=== PATIENT | male | born 1940 | race Caucasian/White ===

== ENCOUNTER → 2017-08-10 10:34 | Outpatient (CLI) | payer MEDICARE, OTHER, SELFPAY ==
--- NOTE | 2017-08-10 | DI.ECHO.S_ITS ---
[facility]---------+ [facility] +---------+ : : [address] : : : [place], [place] : : : : [id number] : : : : Phone: [phone]+ Echocardiogram Report + + :Name: SYDNIE GÓMEZ Study Date: 08/10/2017 Height: 70 in : :[facility] Exam Location: [place] Weight: 224 lb : : Gender: Male BSA: 2.2 m2 : :: 1940 Age: 77 yrs BP: 138/80 mmHg: :Reason For Study: Shortness of Breath : :Ordering Physician: Martha : :Sahil Performed By: Agatha Sánchez : :Referring: MARTHA MCINTYRE : + + Interpretation Summary Left ventricular systolic function is normal without focal wall motion abnormalities with the ejection fraction visually estimated to be 55-60% and appears unchanged compared to the previous study. The left ventricle is normal in size with mild concentric left ventricular hypertrophy, and measures slightly smaller in size compared to the previous study. Assessment of diastolic parameters indicates a relaxation abnormality of the left ventricle, consistent with normal filling pressures, possibly lower compared to the previous study. The right ventricle is at the upper limits of normal in size and systolic function is at the lower limits of normal but this appears unchanged compared to the previous study. The right ventricular systolic pressure is estimated at 32 mmHg assuming a right atrial pressure of 3 mm Hg and is likely slightly lower compared to the previous study. Both atria are normal in size. The left atrium has mildly decreased in size since the prior echo exam. There is mild to moderate mitral regurgitation that is less prominent compared to the previous study. There is no other significant valvular heart disease. The ascending aorta is mild-moderately enlarged and measures slightly larger compared to the previous study. The aortic arch is mildly enlarged and is unchanged compared to the previous study. Procedure: A two-dimensional transthoracic echocardiogram with color flow and Doppler was performed. The study quality was technically adequate. Comparison is made with the echocardiogram of 05/24/2012. The patient was in normal sinus rhythm during the exam. Left Ventricle: The left ventricle is normal in size. There is mild concentric left ventricular hypertrophy. This is measures slightly smaller compared to the previous study. Left ventricular systolic function is normal without focal wall motion abnormalities. The ejection fraction is estimated to be 55-60%. This is unchanged compared to the previous study. Assessment of diastolic parameters indicates a relaxation abnormality of the left ventricle, consistent with normal filling pressures. This is possibly lower compared to the previous study. Right Ventricle: The right ventricle is at the upper limits of normal in size. Right ventricular systolic function is at the lower limits of normal. This is unchanged compared to the previous study. Atria: Both atria are normal in size. The left atrium has mildly decreased in size since the prior echo exam. The interatrial septum is intact with no evidence for an atrial septal defect. Mitral Valve: The mitral valve leaflets appear mildly thickened, but open well. There is mild to moderate mitral regurgitation. This is less prominent compared to the previous study. Aortic Valve: The aortic valve is trileaflet. The aortic valve is slightly calcified. The aortic valve opens well. There is no aortic valve stenosis. No aortic regurgitation is present. Tricuspid Valve: The tricuspid valve is normal in structure and function. There is trace tricuspid regurgitation. The right ventricular systolic pressure is estimated at 32 mmHg assuming a right atrial pressure of 3 mm Hg. This is likely slightly lower compared to the previous study. Pulmonic Valve: The pulmonic valve is not well seen, but is grossly normal. There is trace pulmonic regurgitation. There is no other significant valvular heart disease. Great Vessels: The ascending aorta is mild-moderately enlarged. This is slightly larger compared to the previous study. The aortic arch is mildly enlarged. This is unchanged compared to the previous study. The IVC is of normal diameter and collapses greater than 50% with a sniff. This suggests a low right atrial pressure of 3 mm Hg. Pericardium/ Pleura There is no pericardial effusion. There is no pleural effusion. MMode/2D Measurements & Calculations LVIDd: 5.2 cm LVOT diam: 2.3 cm LVIDs: 3.6 cm asc Aorta Diam: 3.8 cm FS: 30.3 % Ao Arch Diam (Prox Trans): 3.2 cm IVSd: 1.3 cm LVPWd: 1.3 cm LV chamorro. diameter/BSA (cm/m^2): 2.4 LV sys. diameter/BSA (cm/m^2): 1.7 LA A2 area: 23.6 cm2 RA long axis: 4.5 cm LA A4 area: 19.6 cm2 RA area: 15.9 cm2 LA length (vol): 6.0 cm RA vol: 47.7 ml LA vol: 65.4 ml RA : 21.8 ml/m2 LA vol index: 29.9 ml/m2 TAPSE: 2.8 cm Doppler Measurements & Calculations Ao V2 max: 111.4 cm/sec LVOT Max Paxton: 82.0 cm/sec Ao V2 mean: 83.0 cm/sec LV V1 max P.7 mmHg Ao max P.0 mmHg LV V1 VTI: 16.7 cm Ao mean P.0 mmHg BARBI(I,D): 2.7 cm2 Ao V2 VTI: 27.0 cm BARBI(V,D): 3.2 cm2 sev ratio: 0.62 BARBI indexed to BSA (cm^2/m^2): 1.2 MV E max paxton: 53.2 cm/sec TR max paxton: 270.2 cm/sec MV A max paxton: 72.3 cm/sec TR max P.2 mmHg MV E/A: 0.74 PA V2 max: 88.9 cm/sec MV dec time: 0.27 sec PA V2 mean: 54.8 cm/sec PA mean P.4 mmHg PA pr(Accel): 47.4 mmHg Reading Physician:PM
== END ==
PROVIDERS: PCP Internal Medicine; Visit Provider Specialist
DX: R06.02 Shortness of breath (principal); I34.0 Nonrheumatic mitral (valve) insufficiency
CPT/HCPCS: 93306

== ENCOUNTER → 2019-01-16 08:16 | Outpatient (CLI) | payer MEDICARE, OTHER, SELFPAY ==
--- NOTE | 2019-01-16 | DI.US.S_ITS ---
PROCEDURE: US SCROTUM INDICATIONS: BILATERAL SCROTAL LUMPS TECHNIQUE: Real-time scanning was performed of the scrotum and testicles, with image documentation. Color and pulse Doppler interrogation was performed of both testicles. COMPARISON: None. FINDINGS: Right: Testicle is normal in size at 4.5 x 2.3 x 4.1 cm, and homogenous in echotexture. Solid heterogeneous mass involving the epididymal tail measuring 1.8 x 1.4 x 1.8 cm. Mild hyperemia. No hydrocele or varicoceles. Overlying scrotal skin is normal in thickness. Left: Testicle is normal in size at 4.7 x 2.2 x 4.0 cm, and homogeneous in echotexture. Solid heterogeneous mass involving the epididymal tail measuring 2.0 x 1.7 x 2.6 cm. Mild hyperemia. No hydrocele or varicoceles. Overlying scrotal skin is normal in thickness. Doppler: Color and pulse Doppler demonstrate normal and symmetric arterial flow in both testicles. IMPRESSION: 1. Normal testicles bilaterally. 2. Solid, heterogeneous epididymal masses present bilaterally of unclear etiology. Urologic consultation is recommended as although findings may be related to focal epididymitis, underlying neoplastic process cannot be excluded. Continued sonographic surveillance is also recommended. Dictated by: Chaitanya Irvin [facility] Interpreted: Michael Leon MD on 01/16/2019 at 10:40 Approved by: Michael Leon M.D. on 01/16/2019 at 15:01
== END ==
PROVIDERS: PCP Internal Medicine; Visit Provider Internal Medicine
DX: N50.89 Other specified disorders of the male genital organs (principal)
CPT/HCPCS: 76870

== ENCOUNTER → 2019-03-20 09:10 | Outpatient (CLI) | payer MEDICARE, OTHER, SELFPAY ==
--- NOTE | 2019-03-20 | DI.US.S_ITS ---
PROCEDURE: US SCROTUM INDICATIONS: MASS TECHNIQUE: Real-time scanning was performed of the scrotum and testicles, with image documentation. Color and pulse Doppler interrogation was performed of both testicles. COMPARISON: [facility], US, US SCROTUM, 01/16/2019, 8:36. FINDINGS: Right: Testicle is normal in size at 4.0 x 3.1 x 2 cm, and homogenous in echotexture. Epididymis is normal in overall size. There is a 0.9 x 1 x 0.7 cm hypoechoic solid appearing nodule in the right epididymal tail, previously measures 1.8 x 1.4 x 1.8 cm in size. No internal vascularity is noted on the current study. Small right hydrocele is seen. No varicoceles. Overlying scrotal skin is normal in thickness. Left: Testicle is normal in size at 4.6 x 2.8 x 1.9 cm, and homogeneous in echotexture. Epididymis is normal in overall size. Previously described 2 x 1.7 x 2.6 cm heterogeneous mass involving the left epididymal tail now measures 0.6 x 0.6 x 0.5 cm in size. No internal vascularity is noted. No hydrocele or varicoceles. Overlying scrotal skin is normal in thickness. Doppler: Color and pulse Doppler demonstrate normal and symmetric arterial flow in both testicles. IMPRESSION: 1. Interval decrease in size of previously noted solid, heterogeneously hypoechoic bilateral epididymal masses, and may represent benign process. Continued sonographic followup is recommended. 2. Normal appearing bilateral testicles. Dictated by: Michael Leon M.D. on 03/20/2019 at 10:39 Approved by: Michael Leon M.D. on 03/20/2019 at 10:48
== END ==
PROVIDERS: PCP Internal Medicine; Visit Provider Urology
DX: N50.9 Disorder of male genital organs, unspecified (principal); N43.3 Hydrocele, unspecified
CPT/HCPCS: 76870

== ENCOUNTER → 2019-05-09 08:52 | Outpatient (CLI) | payer MEDICARE, OTHER, SELFPAY ==
[2019-05-09 09:50] LABS: Alanine Aminotransferase 17 IU/L (<50); Albumin 4.2 g/dL (3.5-5.0); Albumin Globulin Ratio 1.2 (1.0-2.8); Alkaline Phosphatase 53 U/L (38-126); Aspartate Aminotransferase 28 IU/L (17-59); BUN Creatinine Ratio 18.8 (6-22); Bilirubin Total 0.3 mg/dL (0.2-1.3); Blood Urea Nitrogen 30 mg/dL (9-20); Calcium 8.8 mg/dL (8.4-10.2); Carbon Dioxide 28 mmol/L (22-32); Chloride 106 mmol/L (98-107); Estimated Glomerular Filt Rate 41.9 mL/min (>60); Globulin 3.6 g/dL (1.7-4.1); Glucose 100 mg/dL (80-110); HEMOLYSIS < 15 (0-50); Magnesium 2.4 mg/dL (1.6-2.3); Potassium 4.3 mmol/L (3.4-5.1); Sodium 141 mmol/L (137-145); Total Protein 7.8 g/dL (6.3-8.2)
[2019-05-11 08:20] LABS: Lipoprofile NMR SEE SEPERATE REPORT
== END ==
PROVIDERS: PCP Internal Medicine; Referring Provider Specialist; Visit Provider Specialist
DX: E78.2 Mixed hyperlipidemia (principal); I10 Essential (primary) hypertension
CPT/HCPCS: 36415; 80053; 83704; 83735

== ENCOUNTER → 2019-05-29 15:57 | Outpatient (CLI) | payer MEDICARE, OTHER, SELFPAY ==
--- NOTE | 2019-05-29 | DI.RAD.S_ITS ---
PROCEDURE: XR CERVICAL SPINE 2V OR 3V INDICATIONS: M54.2 TECHNIQUE: 3 view(s) of the cervical spine were acquired. COMPARISON: None. FINDINGS: Bones: Small chronic appearing avulsion fracture of the tip of the C7 spinous process. No acute fractures or dislocations to the T1 level. The lateral masses of C1 appear intact on the odontoid view. No suspicious bony lesions. Moderate C3-C4, C4-C5, C5-C6 and C6-C7 degenerative changes. Moderate bilateral C3-C4, C4-C5, C5-C6 and C6-C7 uncovertebral joint hypertrophy. Mild C5-C6 and C6-C7 facet arthropathy. Soft tissues: No prevertebral soft tissue swelling. IMPRESSION: 1. Multilevel degenerative disc disease. 2. Multilevel facet and uncovertebral arthropathy. Dictated by: Karena Gill MD, PhD on 05/29/2019 at 16:52 Approved by: Karena Gill MD, PhD on 05/29/2019 at 16:54
== END ==
PROVIDERS: PCP Internal Medicine; Referring Provider Internal Medicine; Visit Provider Internal Medicine
DX: M50.31 Other cervical disc degeneration, high cervical region (principal); M47.812 Spondylosis without myelopathy or radiculopathy, cervical region
CPT/HCPCS: 72040

== ENCOUNTER 2019-06-02 09:45 | Emergency (ER) | payer MEDICARE, OTHER, SELFPAY ==
[2019-06-02] VITALS (17 sets, daily range): BP systolic 113–190; BP diastolic 56–88; PULSE 44–89; RESP 14–22; TEMP 36.2; O2SAT 95–100
--- NOTE | 2019-06-02 09:51 | DI.RAD.S_ITS ---
PROCEDURE: XR CHEST 1V INDICATIONS: chest pain TECHNIQUE: One view of the chest was acquired. COMPARISON: [facility], CT, ABDOMEN/PELVIS WITH CONTRAST, 03/06/2011, 14:15. FINDINGS: Surgical changes and devices: None. Lungs and pleura: Lungs appear clear. No pleural effusions or pneumothorax. Mediastinum: Mediastinal contours appear normal. Heart size is normal. Bones and chest wall: No suspicious bony lesions. Overlying soft tissues appear unremarkable. IMPRESSION: No acute cardiopulmonary abnormality. Dictated by: Kwame Barreto M.D. on 06/02/2019 at 10:18 Approved by: Kwame Barreto M.D. on 06/02/2019 at 10:19
[2019-06-02] MEDS: ASPIRIN 81 MG CHEW TAB 324 MG PO (09:56)
--- NOTE | 2019-06-02 09:58 | ED_ITS ---
HPI - Chest Pain General Chief Complaint: Chest Pain Stated Complaint: chest pain Time Seen by Provider: 06/02/19 09:58 History of Present Illness HPI narrative: HPI: The patient is a 79-year-old male who states that he had chest pain and a myocardial infarction in 2011 which resulted in stenting. In 2012 the patient redevelop chest pain and had the stent replaced. This morning the patient developed chest discomfort across his upper chest from nipple to nipple that was a dull achy pressure. This discomfort is different from when he had his previous myocardial infarction. This is not as intense. The discomfort is 5 to 7/10 in intensity. He denies any radiation to his neck jaw shoulder arms or back. It is located just anteriorly. Nothing seems to make it worse or better. He thought lying down and resting would improve it but did not. He denies any shortness of breath but was mildly clammy and minimally sweaty. He denies any recent fall or injury. The discomfort did not wake him he developed the discomfort after he woke up in was moving about. He denies a history of asthma COPD stroke and diabetes mellitus pancreatitis indigestion or heartburn. He admits to history of myocardial infarction as previously noted and hypertension. He denies a history of hepatitis TB and HIV. He has never smoked cigarettes occasionally drinks alcohol and does not use any drugs including marijuana. As noted he denies any fever chills or sweats. He has not traveled outside the [place] and has not been exposed to anyone that he knows of that has young virus. His states that he is pale and white in that this is his normal color. He has had no headache nasal drainage sore throat or sinus congestion no significant shortness of breath cough palpitations or dizziness. He has had no abdominal pain nausea vomiting diarrhea or any urinary symptoms. Related Data Home Medications Medication Instructions Recorded Confirmed carvedilol 25 mg PO BID 06/02/19 06/02/19 hydrochlorothiazide 25 mg PO DAILY 06/02/19 06/02/19 lisinopril 20 mg PO BID 06/02/19 06/02/19 pravastatin 20 mg PO DAILY 06/02/19 06/02/19 rosuvastatin 40 mg PO DAILY 06/02/19 06/02/19 Allergies Allergy/AdvReac Type Severity Reaction Status Date / Time No Known Drug Allergies Allergy Verified 06/02/19 10:09 Review of Systems Review of Systems Narrative: His review of systems were all negative except for those mentioned in the history of present illness. Patient History Social History Smoking Status: Never smoker Exam Narrative Exam Narrative: PHYSICAL EXAM: CONSTITUTIONAL: Awake, Alert, Oriented, Coherent, Cooperative Quiet in NAD. Does not appear toxic or ill. Appears pale and pasty. No diaphoresis HEAD: AT/NC EENT: PERRL, FROM of eyes, no discharge, No epistaxis or nasal drainage Oral mucosa is moist and pink, posterior pharynx is without erythema or exudate. NECK: Supple, no obvious JVD, Trachea is midline without stridor, no palpable LN . SPINE: No gross deformity, no palpable tenderness of the cervical, thoracic, lumbar or sacral spine. No CVA tenderness. THORAX: No deformity, retractions. No chest wall tenderness to AP compression. LUNGS: Clear with symmetrical breath sounds without respiratory distress HEART: Normal heart tones, regular rhythm and rate without murmur. ABDOMEN: Soft, non-tender, without guarding, rebound, rigidity or palpable mass . LYMPHATIC: no palpable lymph nodes EXTREMITIES: No edema, cyanosis, deformity or tenderness. SKIN: No rash, bruising, petechiae or purpura. NEURO: Awake, alert, oriented, conversive, cranial nerves II-XII are symmetrical and normal, moves all 4 extremities. Initial Vital Signs Initial Vital Signs: Vital Signs Temperature 97.1 F L 06/02/19 09:45 Pulse Rate 44 L 06/02/19 09:45 Respiratory Rate 18 06/02/19 09:45 Blood Pressure 190/88 H 06/02/19 09:45 Pulse Oximetry 99 06/02/19 09:45 Course Course Course Narrative: 1025: The nurse states that the patient's pain completely resolved with nitro glycerin sublingually. The patient will be placed on nitro paste and started on heparin 5000 units IV push as a bolus and an infusion of a 1000 milligrams/hour. His title curator is Dr. Baxter at a [facility]. As soon as his laboratory chemistries are resulted I will discuss the patient with his title curator. I surmise that the patient will be transferred to [facility]. 10:31 the patient's troponin is 0.027, CPK 122, BUN 33 creatinine 1.65 the GFR 46.4 BNP pending. 13:29 the patient's lipase is 101 his pro BNP is 690 and his repeat 2 hour troponin is 0.034. I will call and discuss the patient with Dr. Baxter his cardiology at [facility]. 13:39: I discussed the patient with his title curator Dr. Baxter at the [facility] who states that this is a pretty good story for angina. He feels that the patient should be admitted and his troponins trended. If his troponins rise significantly he should be transferred to [facility] of for possible repeat catheterization. At this time he does not feel that the patient needs an immediate cardiac catheterization and that his blood pressure should be controlled which may be contributing and causing his chest pain. The [facility] hospitalist has been called to discuss possible admi ssion. 1400: I discussed admitting the patient here with Dr. Andrews. She feels uncomfortable and that the patient is potentially high risk. She wants me to check another 2 hour troponin and if it is continuing to go up he needs to be transferred to [facility]. She will call and discussed the patient with Dr. Baxter. In the meantime, I have called [facility] and they have beds available. 1440:I discussed the patient with the hospitalist Dr. Abel at [facility] who accepted the patient being transferred and admitted there. The patient will be transferred by ambulance. Orders Ordered: Discontinued Medications Acetaminophen (Tylenol) 650 mg PO Q4HR PRN PRN Reason: Pain, Mild (1-3) Aspirin (Aspirin Chew) 324 mg PO NOW ONE Stop: 06/02/19 09:54 Last Admin: 06/02/19 09:56 Dose: 324 mg Documented by: IRWIN Heparin Sodium (Porcine) (Heparin) 5,000 unit IV NOW ONE Stop: 06/02/19 10:26 Last Admin: 06/02/19 10:56 Dose: 5,000 unit Documented by: TEREZA Heparin Sodium/Dextrose (Heparin Drip) 25,000 unit in 500 mls @ 20 mls/hr IV CONT GUSTABO; Protocol Last Titration: 06/02/19 15:44 Dose: 1,000 units/hr, 20 mls/hr Documented by: Admin: 06/02/19 10:57 Dose: 1,000 units/hr, 20 mls/hr Documented by: TEREZA Morphine Sulfate (Morphine) 4 mg IV NOW ONE Stop: 06/02/19 10:00 Last Admin: 06/02/19 10:56 Dose: Not Given Documented by: TEREZA Nitroglycerin (Nitrostat) 0.4 mg SL [id number] PRN PRN Reason: Chest Pain Last Admin: 06/02/19 10:56 Dose: 0.4 mg Documented by: Admin: 06/02/19 10:15 Dose: 0.4 mg Documented by: Admin: 06/02/19 10:03 Dose: 0.4 mg Documented by: IRWIN Nitroglycerin (Nitro-Bid) 1 inch TOP NOW ONE Stop: 06/02/19 10:26 Last Admin: 06/02/19 11:39 Dose: 1 inch Documented by: TEREZA Ondansetron HCl (Zofran) 4 mg IV Q6HR PRN PRN Reason: nausea / vomiting Vital Signs Vital signs: Vital Signs - 8 hr 06/02/19 09:45 06/02/19 10:00 06/02/19 10:03 Temperature 97.1 F L Pulse Rate 44 L 50 L 50 L Respiratory Rate 18 14 Blood Pressure 190/88 H 186/69 H Blood Pressure [Right Arm] 186/79 H Pulse Oximetry 99 99 06/02/19 10:15 06/02/19 10:53 06/02/19 10:56 Temperature Pulse Rate 48 L 52 L 46 L Respiratory Rate 14 18 Blood Pressure 156/72 H 124/57 L Blood Pressure [Right Arm] 156/72 H 124/57 L Pulse Oximetry 100 100 06/02/19 11:00 06/02/19 11:15 06/02/19 11:26 Temperature Pulse Rate 52 L 49 L 55 L Respiratory Rate 16 16 14 Blood Pressure Blood Pressure [Right Arm] 113/56 L 119/58 L 119/58 L Pulse Oximetry 96 96 99 06/02/19 11:30 06/02/19 11:45 06/02/19 12:00 Temperature Pulse Rate 46 L 89 46 L Respiratory Rate 16 19 16 Blood Pressure Blood Pressure [Right Arm] 136/61 140/62 128/62 Pulse Oximetry 96 98 98 06/02/19 12:15 06/02/19 12:30 06/02/19 14:03 Temperature Pulse Rate 50 L 52 L 51 L Respiratory Rate 22 21 17 Blood Pressure Blood Pressure [Right Arm] 134/63 130/63 150/70 H Pulse Oximetry 97 98 95 MDM - Chest Pain Medical Records Data Attestation: I reviewed the patient's medical records. Lab Data Attestation: I reviewed the patient's lab results. Result diagrams: 06/02/19 09:55 06/02/19 09:55 Labs: Lab Results 06/02/19 06/02/19 06/02/19 Range/Units 09:55 09:55 09:55 WBC 5.5 (4.5-11.0) X10^3/uL RBC 3.53 L (4.5-5.9) X10^6/uL Hgb 10.8 L (13.5-17.5) g/dL Hct 32.4 L (41-53) % MCV 91.8 (80-100) fL MCH 30.7 (26-34) PG MCHC 33.5 (30-36) % RDW 13.8 (11.6-14.8) % Plt Count 154 (150-400) X10^3/uL Neut % (Auto) 50.1 (50-75) % Lymph % (Auto) 34.1 (25-40) % [facility] % (Auto) 14.1 H (3-14) % Eos % (Auto) 1.2 L (2-4) % Baso % (Auto) 0.5 (0-2) % Neut # (Auto) 2800 (1209-6891) /uL Lymph # (Auto) 1900 (4613-9510) /uL [facility] # (Auto) 800 (0-900) /uL Eos # (Auto) 100 (0-450) /uL Baso # (Auto) 0 (0-100) /uL PT 11.9 (10.1-12.7) SECONDS INR 1.0 (0.9-1.3) APTT 32 (26.4-36.2) SECONDS Sodium 139 (137-145) mmol/L Potassium 4.3 (3.4-5.1) mmol/L Chloride 105 (98-107) mmol/L Carbon Dioxide 26 (22-32) mmol/L BUN 33 H (9-20) mg/dL Creatinine 1.65 H (0.66-1.25) mg/dL Estimated GFR 40.4 L (>60) mL/min BUN/Creatinine Ratio 20.0 (6-22) Glucose 104 (80-110) mg/dL Calcium 9.1 (8.4-10.2) mg/dL Total Bilirubin 0.4 (0.2-1.3) mg/dL AST 25 (17-59) IU/L ALT 16 (<50) IU/L Alkaline Phosphatase 49 (38-126) U/L Total Creatine Kinase 122 (55-170) U/L CK-MB (CK-2) 2.02 (<2.37) ng/mL CK-MB (CK-2) Rel Index 1.7 (1.5-5.0) % Troponin I 0.027 (0.01-0.034) ng/mL NT-Pro-B Natriuret Pep (<450) pg/mL Total Protein 7.9 (6.3-8.2) g/dL Albumin 4.3 (3.5-5.0) g/dL Globulin 3.6 (1.7-4.1) g/dL Albumin/Globulin Ratio 1.2 (1.0-2.8) Lipase 101 (23-300) U/L 06/02/19 06/02/19 Range/Units 10:06 12:20 WBC (4.5-11.0) X10^3/uL RBC (4.5-5.9) X10^6/uL Hgb (13.5-17.5) g/dL Hct (41-53) % MCV (80-100) fL MCH (26-34) PG MCHC (30-36) % RDW (11.6-14.8) % Plt Count (150-400) X10^3/uL Neut % (Auto) (50-75) % Lymph % (Auto) (25-40) % [facility] % (Auto) (3-14) % Eos % (Auto) (2-4) % Baso % (Auto) (0-2) % Neut # (Auto) (2203-1403) /uL Lymph # (Auto) (2517-9729) /uL [facility] # (Auto) (0-900) /uL Eos # (Auto) (0-450) /uL Baso # (Auto) (0-100) /uL PT (10.1-12.7) SECONDS INR (0.9-1.3) APTT (26.4-36.2) SECONDS Sodium (137-145) mmol/L Potassium (3.4-5.1) mmol/L Chloride (98-107) mmol/L Carbon Dioxide (22-32) mmol/L BUN (9-20) mg/dL Creatinine (0.66-1.25) mg/dL Estimated GFR (>60) mL/min BUN/Creatinine Ratio (6-22) Glucose (80-110) mg/dL Calcium (8.4-10.2) mg/dL Total Bilirubin (0.2-1.3) mg/dL AST (17-59) IU/L ALT (<50) IU/L Alkaline Phosphatase (38-126) U/L Total Creatine Kinase (55-170) U/L CK-MB (CK-2) (<2.37) ng/mL CK-MB (CK-2) Rel Index (1.5-5.0) % Troponin I 0.034 (0.01-0.034) ng/mL NT-Pro-B Natriuret Pep 690 H (<450) pg/mL Total Protein (6.3-8.2) g/dL Albumin (3.5-5.0) g/dL Globulin (1.7-4.1) g/dL Albumin/Globulin Ratio (1.0-2.8) Lipase (23-300) U/L ECG Data Attestation: I personally reviewed and interpreted this ECG as follows: Interpretation: The patient's EKG obtained on June 01 at 0 9: 5A: 3 1 reveals a sinus bradycardia with a ventricular rate of 49. The patient has a right bundle branch block without any acute diagnostic ST segment changes. The patient has inverted T-waves in lead III. The patient has prominent T-waves in leads V2 V3 V4. The patient has a small Q-wave in lead III. Otherwise there are no diagnostic ST segment changes. The patient's LA interval is 198 milliseconds QRS is 152 milliseconds duration axis is normal. 13:00 the patient's repeat EKG obtained on June 01 at 12:51:27 the EKG is unchanged from the 1st EKG. The patient has a right bundle branch block axis is normal intervals are normal for ventricular rate is bradycardic at 47. It is a sinus bradycardia. T-wave is inverted in lead III. There are no other acute diagnostic ST or T-wave changes. The patient's 2nd repeat troponin remains pending. I will discuss the patient's with his title curator after the repeat troponin. Discharge Plan Departure Patient Disposition: [facility] Clinical Impression: Angina pectoris Chest pain Qualifiers: Chest pain type: chest pain due to myocardial ischemia Ischemic chest pain type: stable angina pectoris Qualified Code(s): I20.8 - Other forms of angina pectoris Discharge Date/Time: 06/02/19 15:45 Prescriptions: No Action carvedilol 25 mg tablet 25 mg PO BID RF: 0 lisinopril 20 mg tablet 20 mg PO BID RF: 0 hydrochlorothiazide 25 mg tablet 25 mg PO DAILY RF: 0 rosuvastatin 40 mg tablet 40 mg PO DAILY RF: 0 pravastatin 20 mg tablet 20 mg PO DAILY RF: 0 Referrals: Tomer Baird MD [Primary Care Provider] -
[2019-06-02] MEDS: NITROGLYCERIN 0.4 MG SL TAB SL ×3 (10:03→10:56)
[2019-06-02 10:05] LABS: Add Manual Diff / Slide Review NO; Basophils Absolute Auto 0 /uL (0-100); Basophils Percent Auto 0.5 % (0-2); Eosinophils Absolute Auto 100 /uL (0-450); Eosinophils Percent Auto 1.2 % (2-4); Hematocrit 32.4 % (41-53); Hemoglobin 10.8 g/dL (13.5-17.5); Lymphocytes Absolute Auto 1900 /uL (1100-4500); Lymphocytes Percent Auto 34.1 % (25-40); Mean Corpuscular HGB Conc 33.5 % (30-36); Mean Corpuscular Hemoglobin 30.7 PG (26-34); Mean Corpuscular Volume 91.8 fL (80-100); Monocytes Absolute Auto 800 /uL (0-900); Monocytes Percent Auto 14.1 % (3-14); Neutrophils Absolute Auto 2800 /uL (1500-7000); Neutrophils Percent Auto 50.1 % (50-75); Platelet Count 154 X10^3/uL (150-400); Red Blood Cell Count 3.53 X10^6/uL (4.5-5.9); Red Cell Distribution Width 13.8 % (11.6-14.8); White Blood Cell Count 5.5 X10^3/uL (4.5-11.0)
[2019-06-02 10:12] LABS: Prothrombin Time 11.9 SECONDS (10.1-12.7)
[2019-06-02 10:14] LABS: PTT Partial Thromboplastin Tim 32 SECONDS (26.4-36.2)
[2019-06-02 10:15] LABS: Alanine Aminotransferase 16 IU/L (<50); Albumin 4.3 g/dL (3.5-5.0); Albumin Globulin Ratio 1.2 (1.0-2.8); Alkaline Phosphatase 49 U/L (38-126); Aspartate Aminotransferase 25 IU/L (17-59); Bilirubin Total 0.4 mg/dL (0.2-1.3); Blood Urea Nitrogen 33 mg/dL (9-20); Calcium 9.1 mg/dL (8.4-10.2); Carbon Dioxide 26 mmol/L (22-32); Chloride 105 mmol/L (98-107); Creatine Kinase 122 U/L (55-170); Estimated Glomerular Filt Rate 40.4 mL/min (>60); Globulin 3.6 g/dL (1.7-4.1); Glucose 104 mg/dL (80-110); HEMOLYSIS < 15 (0-50); Lipase 101 U/L (23-300); Potassium 4.3 mmol/L (3.4-5.1); Sodium 139 mmol/L (137-145); Total Protein 7.9 g/dL (6.3-8.2)
[2019-06-02 10:27] LABS: Troponin I 0.027 ng/mL (0.01-0.034)
[2019-06-02 10:31] LABS: NT-proBNP (BNP-Adult 18+) 690 pg/mL (<450)
[2019-06-02 10:50] LABS: CKMB % Relative Index 1.7 % (1.5-5.0); Creatine Kinase MB 2.02 ng/mL (<2.37)
[2019-06-02] MEDS: HEPARIN 5,000 UNIT/ML VIAL 5000 UNIT IV (10:56)
[2019-06-02] MEDS: HEPARIN DRIP 25,000 UNIT/500 ML IV.SOLN 20 UNIT IV (10:57)
[2019-06-02] MEDS: NITROGLYCERIN OINT 1 INCH/GM OINT...G. TOP (11:39)
[2019-06-02 13:13] LABS: Troponin I 0.034 ng/mL (0.01-0.034)
--- NOTE | 2019-06-03 17:31 | PC.NURSE ---
Late entry: Heparin discontinued for purposes of [facility] charting. Heparin continued by [facility] during transport.
== END 2019-06-02 15:45 | disposition short-term general hospital (02) ==
PROVIDERS: Emergency Provider Emergency Medicine; PCP Internal Medicine
DX: I20.8 Other forms of angina pectoris (principal); I10 Essential (primary) hypertension; R07.9 Chest pain, unspecified; Z95.5 Presence of coronary angioplasty implant and graft
CPT/HCPCS: 36415; 71045; 80053; 82550; 82553; 83690; 83880; 84484; 85025; 85610; 85730; 93005; 96365; 96366; 96375; 99285; J1644

== ENCOUNTER → 2019-06-07 14:08 | Outpatient (CLI) | payer MEDICARE, OTHER, SELFPAY ==
[2019-06-07 15:50] LABS: BUN Creatinine Ratio 15.9 (6-22); Blood Urea Nitrogen 27 mg/dL (9-20); Calcium 9.3 mg/dL (8.4-10.2); Carbon Dioxide 23 mmol/L (22-32); Chloride 108 mmol/L (98-107); Estimated Glomerular Filt Rate 39.1 mL/min (>60); Glucose 164 mg/dL (80-110); HEMOLYSIS < 15 (0-50); Potassium 4.1 mmol/L (3.4-5.1); Sodium 140 mmol/L (137-145)
== END ==
PROVIDERS: PCP Internal Medicine; Referring Provider Specialist; Visit Provider Specialist
DX: N18.3 Chronic kidney disease, stage 3 (moderate) (principal)
CPT/HCPCS: 36415; 80048

== ENCOUNTER → 2019-07-13 16:31 | Outpatient (CLI) | payer MEDICARE, OTHER, SELFPAY ==
--- NOTE | 2019-07-13 | DI.ECHO.S_ITS ---
[facility]---------+ [facility] +---------+ : : [address] : [address] : : : : [id number] : : : : Phone: [phone]---------+ Echocardiogram Report + + :Name: SYDNIE GÓMEZ Study Date: 07/13/2019 Height: 70 in : :[facility] Weight: 213 lb : : Gender: Male BSA: 2.1 m2 : :: 1940 Age: 79 yrs BP: 130/78 mmHg: :Reason For Study: SHORTNESS OF BREATH : :Ordering Physician: Martha : :Sahil Performed By: Tasneem Garcia : :Referring: MARTHA MCINTYRE : + + Interpretation Summary Left ventricular systolic function is borderline reduced with hypokinesis of the posterior wall, extending into the proximal inferior wall with an estimated ejection fraction of 55 to 60%. The distal inferior and apical hypokinesis seen previously has now resolved and otherwise there is no significant change. While there is a suggestion of probable pseudonormalization of diastolic function with probable increased filling pressures, these may be improved compared to the previous exam. The right ventricle appears normal. PAP is estimated at 35 mmHg with a CVP of around 3 mmHg, and is likely slightly higher compared to the previous study. New The left atrium is moderately enlarged but unchanged from the previous exam. There is moderate mitral regurgitation and mild tricuspid regurgitation, both slightly more prominent compared to the previous study but otherwise no significant valvular abnormality. The ascending aorta and aortic arch are mildly enlarged but grossly unchanged from the previous exam. The patient had heart rates in the 50 to 60 bpm range with frequent PVCs, at times in a bigeminal and trigeminal pattern with the frequency of the PVCs significantly increased since the previous study. Procedure: A two-dimensional transthoracic echocardiogram with color flow and Doppler was performed. The study quality was technically adequate. There is no prior echocardiogram noted for this patient. The patient was in sinus bradycardia with heart rates between 50-65 bpm during the exam. The patient had frequent PVCs during the exam. Segments of bigeminy and trigeminy noted in the frequency of the PVCs is significantly increased since the previous study. Left Ventricle: There is borderline concentric left ventricular hypertrophy. The left ventricle is normal in size. The ejection fraction is estimated to be 55-60%. Left ventricular systolic function is mildly reduced. There is mild hypokinesis in the posterior wall, extending into the proximal inferior wall which appears similar to the previous study but the distal inferior and apical hypokinesis is significantly improved compared to the previous exam. Diastolic parameters suggest a pseudonormalization pattern, consistent with probable elevated filling pressures. This is but possibly slightly lower compared to the previous study compared to the previous study. Right Ventricle: The right ventricle is normal in size and function. This is unchanged compared to the previous study. Atria: The left atrium is moderately dilated. This is unchanged compared to the previous study. The right atrium is normal in size. There is no Doppler evidence for an interatrial shunt. Mitral Valve: The mitral valve leaflets appear mildly thickened, but open well. The mitral valve leaflets are slightly calcified. There is moderate mitral regurgitation. This is slightly more prominent compared to the previous study. Aortic Valve: The aortic valve is grossly normal. There is mild aortic valve sclerosis. The aortic valve opens well. There is no aortic valve stenosis. No aortic regurgitation is present. Tricuspid Valve: The tricuspid valve is normal in structure and function. There is mild tricuspid regurgitation. This is slightly more prominent compared to the previous study. The right ventricular systolic pressure is estimated to be at least 35 mmHg based on an estimated right atrial pressure of 3 mm Hg. And is likely slightly higher compared to the previous study. Pulmonic Valve: The pulmonic valve is not well seen, but is grossly normal. There is trace pulmonic regurgitation. Great Vessels: The aortic root is normal size. The ascending aorta is mildly enlarged. The aortic arch is mildly enlarged. This is grossly unchanged compared to the previous study. The IVC is of normal diameter and collapses greater than 50% with a sniff. This suggests a low right atrial pressure of 3 mm Hg. Pericardium/ Pleura There is no pericardial effusion. There is no pleural effusion. MMode/2D Measurements & Calculations LVIDd: 5.5 cm LVOT diam: 2.3 cm LVIDs: 3.9 cm Ao root diam: 3.5 cm FS: 29.3 % asc Aorta Diam: 3.7 cm EPSS: 0.75 cm Ao Arch Diam (Prox Trans): 3.4 cm IVSd: 1.2 cm LVPWd: 1.0 cm LV chamorro. diameter/BSA (cm/m^2): 2.6 LV sys. diameter/BSA (cm/m^2): 1.8 LA A2 area: 28.5 cm2 RA long axis: 5.4 cm LA A4 area: 22.6 cm2 RA area: 17.1 cm2 LA length (vol): 6.1 cm RA vol: 46.0 ml LA vol: 90.1 ml RA : 21.4 ml/m2 LA vol index: 42.0 ml/m2 IVC diam: 1.7 cm RVD1 (basal): 3.8 cm TAPSE: 2.0 cm Doppler Measurements & Calculations Ao V2 max: 160.4 cm/sec LVOT Max Paxton: 97.6 cm/sec Ao V2 mean: 111.4 cm/sec LV V1 max P.8 mmHg Ao max P.3 mmHg LV V1 VTI: 20.3 cm Ao mean P.7 mmHg BARBI(I,D): 2.4 cm2 Ao V2 VTI: 34.3 cm BARBI(V,D): 2.5 cm2 sev ratio: 0.59 BARBI indexed to BSA (cm^2/m^2): 1.1 Med Peak E' Paxton: 5.8 cm/sec TR max paxton: 283.5 cm/sec Lat Peak E' Paxton: 7.7 cm/sec TR max P.2 mmHg MR ERO: 0.19 cm2 PA V2 max: 70.6 cm/sec PA V2 mean: 48.1 cm/sec PA mean P.1 mmHg MR PISA: 2.5 cm2 SV(LVOT): 82.5 ml MR flow rate: 91.3 cm3/sec MR PISA radius: 0.63 cm Reading Physician:DEEPIKA
[2019-07-13 17:38] LABS: Add Manual Diff / Slide Review NO; Basophils Absolute Auto 0 /uL (0-100); Basophils Percent Auto 0.3 % (0-2); Eosinophils Absolute Auto 100 /uL (0-450); Eosinophils Percent Auto 1.2 % (2-4); Hematocrit 26.7 % (41-53); Lymphocytes Absolute Auto 1500 /uL (1100-4500); Mean Corpuscular HGB Conc 33.5 % (30-36); Mean Corpuscular Hemoglobin 31.1 PG (26-34); Monocytes Absolute Auto 1500 /uL (0-900); Monocytes Percent Auto 23.3 % (3-14); Neutrophils Absolute Auto 3300 /uL (1500-7000); Neutrophils Percent Auto 52.2 % (50-75); Platelet Count 124 X10^3/uL (150-400); Red Blood Cell Count 2.88 X10^6/uL (4.5-5.9); Red Cell Distribution Width 14.5 % (11.6-14.8); White Blood Cell Count 6.3 X10^3/uL (4.5-11.0)
[2019-07-13 17:52] LABS: BUN Creatinine Ratio 17.7 (6-22); Blood Urea Nitrogen 26 mg/dL (9-20); Calcium 9.2 mg/dL (8.4-10.2); Carbon Dioxide 26 mmol/L (22-32); Chloride 105 mmol/L (98-107); Estimated Glomerular Filt Rate 46.2 mL/min (>60); Glucose 99 mg/dL (80-110); HEMOLYSIS < 15 (0-50); Potassium 4.2 mmol/L (3.4-5.1); Sodium 141 mmol/L (137-145)
[2019-07-13 18:00] LABS: NT-proBNP (BNP-Adult 18+) 1490 pg/mL (<450)
== END ==
PROVIDERS: PCP Internal Medicine; Referring Provider Specialist; Visit Provider Specialist
DX: I08.1 Rheumatic disorders of both mitral and tricuspid valves (principal); R06.02 Shortness of breath; I77.89 Other specified disorders of arteries and arterioles
CPT/HCPCS: 36415; 80048; 83880; 85025; 93306

== ENCOUNTER → 2019-07-27 16:05 | Outpatient (CLI) | payer MEDICARE, OTHER, SELFPAY ==
[2019-07-27 18:12] LABS: Alanine Aminotransferase 32 IU/L (<50); Albumin 4.3 g/dL (3.5-5.0); Albumin Globulin Ratio 1.2 (1.0-2.8); Alkaline Phosphatase 50 U/L (38-126); Aspartate Aminotransferase 35 IU/L (17-59); BUN Creatinine Ratio 13.1 (6-22); Bilirubin Total 0.4 mg/dL (0.2-1.3); Blood Urea Nitrogen 26 mg/dL (9-20); Calcium 8.9 mg/dL (8.4-10.2); Carbon Dioxide 29 mmol/L (22-32); Chloride 103 mmol/L (98-107); Estimated Glomerular Filt Rate 32.8 mL/min (>60); Globulin 3.5 g/dL (1.7-4.1); Glucose 93 mg/dL (80-110); HEMOLYSIS < 15 (0-50); Magnesium 2.4 mg/dL (1.6-2.3); Potassium 4.4 mmol/L (3.4-5.1); Sodium 140 mmol/L (137-145); Total Protein 7.8 g/dL (6.3-8.2)
[2019-07-27 18:18] LABS: NT-proBNP (BNP-Adult 18+) 1420 pg/mL (<450)
== END ==
PROVIDERS: PCP Internal Medicine; Referring Provider Specialist; Visit Provider Specialist
DX: I10 Essential (primary) hypertension (principal); R06.02 Shortness of breath
CPT/HCPCS: 36415; 80053; 83735; 83880

== ENCOUNTER → 2019-08-08 12:29 | Outpatient (CLI) | payer MEDICARE, OTHER, SELFPAY ==
[2019-08-11 10:08] LABS: Cholesterol, Total 112 mg/dL (100-199); HDL-Cholesterol 40 mg/dL (>39); HDL-Particle (Total) 29.5 umol/L (>=30.5); Historical Reading Comment: (.); LDL Particle 933 nmol/L (<1000); LDL-Cholsterol 51 mg/dL (0-99); LP-IR Score 42 (<=45); Small LDL- Particle 561 nmol/L (<=527); Triglycerides 106 mg/dL (0-149)
== END ==
PROVIDERS: PCP Internal Medicine; Referring Provider Specialist; Visit Provider Specialist
DX: I10 Essential (primary) hypertension (principal)
CPT/HCPCS: 36415; 80061; 83704

== ENCOUNTER → 2019-08-16 10:21 | Outpatient (CLI) | payer MEDICARE, OTHER, SELFPAY ==
--- NOTE | 2019-08-16 | DI.US.S_ITS ---
PROCEDURE: US SCROTUM INDICATIONS: EPIDIDYMAL MASS TECHNIQUE: Real-time scanning was performed of the scrotum and testicles, with image documentation. Color and pulse Doppler interrogation was performed of both testicles. COMPARISON: [facility], SCROTUM, 03/20/2019, 9:44. [facility], US SCROTUM, 01/16/2019, 8:36. FINDINGS: Right: Testicle is normal in size at 2.5 x 3.3 x 4.9 cm, and homogenous in echotexture. Epididymis is normal in overall size and morphology. No significant hydrocele or varicoceles. Overlying scrotal skin is normal in thickness. Left: Testicle is normal in size at 2.3 x 2.9 x 5.1 cm, and homogeneous in echotexture. Epididymis is normal in overall size and morphology. No significant hydrocele or varicoceles. Overlying scrotal skin is normal in thickness. Doppler: Color and pulse Doppler demonstrate normal and symmetric arterial flow in both testicles. IMPRESSION: Resolution of the bilateral previously present hypoechoic solid abnormalities at each epididymis. Given the spontaneous resolution of an inflammatory process is considered the presumed prior cause. Testicles bilaterally appear normal. No evidence of scrotal wall inflammation. Dictated by: Trey Marquez M.D. on 08/16/2019 at 12:11 Approved by: Trey Marquez M.D. on 08/16/2019 at 12:24
== END ==
PROVIDERS: PCP Internal Medicine; Referring Provider Urology; Visit Provider Urology
DX: N50.89 Other specified disorders of the male genital organs (principal)
CPT/HCPCS: 76870

== ENCOUNTER → 2020-03-04 09:56 | Outpatient (CLI) | payer MEDICARE, OTHER, SELFPAY ==
[2020-03-04 10:59] LABS: Alanine Aminotransferase 20 IU/L (<50); Albumin Globulin Ratio 1.3 (1.0-2.8); Alkaline Phosphatase 62 U/L (38-126); Aspartate Aminotransferase 26 IU/L (17-59); BUN Creatinine Ratio 16.4 (6-22); Bilirubin Total 0.2 mg/dL (0.2-1.3); Blood Urea Nitrogen 29 mg/dL (9-20); Calcium 8.9 mg/dL (8.4-10.2); Carbon Dioxide 27 mmol/L (22-32); Chloride 108 mmol/L (98-107); Estimated Glomerular Filt Rate 37.2 mL/min (>60); Globulin 3.1 g/dL (1.7-4.1); Glucose 94 mg/dL (80-110); HEMOLYSIS < 15 (0-50); Magnesium 2.2 mg/dL (1.6-2.3); Potassium 4.7 mmol/L (3.4-5.1); Sodium 139 mmol/L (137-145); Total Protein 7.1 g/dL (6.3-8.2)
== END ==
PROVIDERS: PCP Internal Medicine; Referring Provider Specialist; Visit Provider Specialist
DX: E78.00 Pure hypercholesterolemia, unspecified (principal); I10 Essential (primary) hypertension
CPT/HCPCS: 36415; 80053; 80061; 83704; 83735

== ENCOUNTER → 2020-03-22 11:10 | Outpatient (CLI) | payer MEDICARE, OTHER, SELFPAY ==
[2020-03-22 12:21] LABS: Alanine Aminotransferase 21 IU/L (<50); Albumin Globulin Ratio 1.3 (1.0-2.8); Alkaline Phosphatase 50 U/L (38-126); Aspartate Aminotransferase 29 IU/L (17-59); Bilirubin Total 0.3 mg/dL (0.2-1.3); Blood Urea Nitrogen 28 mg/dL (9-20); Calcium 8.8 mg/dL (8.4-10.2); Carbon Dioxide 30 mmol/L (22-32); Chloride 106 mmol/L (98-107); Estimated Glomerular Filt Rate 37.7 mL/min (>60); Globulin 3.2 g/dL (1.7-4.1); Glucose 103 mg/dL (80-110); HEMOLYSIS < 15 (0-50); Magnesium 2.2 mg/dL (1.6-2.3); Potassium 4.8 mmol/L (3.4-5.1); Sodium 139 mmol/L (137-145); Total Protein 7.2 g/dL (6.3-8.2)
[2020-03-22 12:47] LABS: Thyroid Stimulating Hormone 1.21 uIU/mL (0.47-4.68)
[2020-04-09 13:58] LABS: LDL Particle SEE SEPARATE REPORTS
== END ==
PROVIDERS: PCP Internal Medicine; Referring Provider Physician Assistant Medical; Visit Provider Physician Assistant Medical
DX: I10 Essential (primary) hypertension (principal); R53.83 Other fatigue; E78.00 Pure hypercholesterolemia, unspecified
CPT/HCPCS: 36415; 80053; 80061; 83704; 83735; 84443

== ENCOUNTER → 2020-05-02 09:48 | Outpatient (CLI) | payer MEDICARE, OTHER, SELFPAY ==
--- NOTE | 2020-05-02 | DI.US.S_ITS ---
PROCEDURE: US RENAL COMPLETE INDICATIONS: BLADDER OUTLET OBSTRUCTION TECHNIQUE: Real-time scanning was performed of the kidneys and bladder, with image documentation. COMPARISON: None. FINDINGS: Kidneys: Kidneys are normal in size. Right kidney measures 10.9 cm long; left kidney measures 11.8 cm long. Right renal cortical thickness is 1.5 cm; left renal cortical thickness is 1.2 cm. Renal cortical echotexture is normal. No hydronephrosis or nephrolithiasis. No suspicious solid mass lesions. Bladder: Pre-void bladder volume is 47 mL. Post-void residual is 0 mL. Pre-void images demonstrate no intraluminal masses or stones. On pre-void images, neither ureteral jets are noted with color Doppler interrogation. (Of note, ureteral jets may not be detectable in up to 25% of cases due to insufficient differences in specific gravity between ureteral and bladder urine). Miscellaneous: No free pelvic fluid. IMPRESSION: No findings of bladder outlet obstruction, with a postvoid residual of 0 cc measured. Negative for hydronephrosis. Dictated by: Adolfo Kam M.D. on 05/02/2020 at 10:06 Approved by: Adolfo Kam M.D. on 05/02/2020 at 10:07
== END ==
PROVIDERS: PCP Internal Medicine; Referring Provider Internal Medicine Nephrology; Visit Provider Internal Medicine Nephrology
DX: N13.8 Other obstructive and reflux uropathy (principal)
CPT/HCPCS: 76770

== ENCOUNTER → 2020-06-27 15:31 | Outpatient (CLI) | payer MEDICARE, OTHER, SELFPAY ==
--- NOTE | 2020-06-27 | DI.MRI.S_ITS ---
PROCEDURE: MR LUMBAR SPINE WO CON INDICATIONS: Radiculopathy, lumbar region TECHNIQUE: Noncontrast sagittal T1 spin echo and T2 fast echo, sagittal STIR, axial T1 and T2 fast spin echo through the lumbar spine. In cases with scoliosis, additional coronal T2 fast spin echo may be performed. COMPARISON: [facility], MR, L-SPINE WITHOUT CONTRAST, 07/27/2016, 12:43. FINDINGS: Vertebral body height and marrow signal is well maintained other than degenerative endplate changes. No evidence of fracture. Conus medullaris is appropriate in signal and position opposite L1. Paraspinal soft tissues unremarkable. L1-2: Severe disc space narrowing with small circumferential disc bulge and mild hypertrophic facet joints present. No central stenosis. Mild right and no left foraminal stenosis. L2-3: Severe disc space narrowing and degenerative endplate changes with posterior disc osteophyte complex combined with ligamentum flavum laxity to result in mild to moderate central canal stenosis, narrowing the AP diameter of the thecal sac to 8 mm. Moderate bilateral foraminal stenosis noted. L3-4: Moderate disc height loss and circumferential disc bulge with degenerative endplate changes results moderate bilateral foraminal stenosis. moderate central canal stenosis, narrowing the AP diameter of the thecal sac to 8 mm. Hypertrophic facet joints L4-5: Mild disc height loss and circumferential disc bulge combined with hypertrophic facet joints effacing the lateral recesses in resulting in mild central canal stenosis. There is severe left and moderate right foraminal stenosis. L5-S1: Severe disc height loss and degenerative endplate changes months with circumferential disc bulge and hypertrophic facet joints. No central stenosis present. Moderate bilateral foraminal stenosis present. IMPRESSION: Multilevel degenerative disc disease and facet arthropathy results in varying degrees of central and foraminal stenosis, minimally increased from prior exam. There is moderate central stenosis at L3-4 and severe left foraminal stenosis at L4-5. Dictated by: Lucas Hameed M.D. on 06/27/2020 at 17:33 Approved by: Lucas Hameed M.D. on 06/27/2020 at 17:45
== END ==
PROVIDERS: PCP Internal Medicine; Referring Provider Neurological Surgery; Visit Provider Neurological Surgery
DX: M51.16 Intervertebral disc disorders with radiculopathy, lumbar region (principal); M47.26 Other spondylosis with radiculopathy, lumbar region; M48.061 Spinal stenosis, lumbar region without neurogenic claudication
CPT/HCPCS: 72148

== ENCOUNTER → 2020-11-29 09:26 | Outpatient (CLI) | payer MEDICARE, OTHER, SELFPAY ==
[2020-11-29 11:32] LABS: Alanine Aminotransferase 13 IU/L (<50); Albumin 4.2 g/dL (3.5-5.0); Albumin Globulin Ratio 1.3 (1.0-2.8); Alkaline Phosphatase 58 U/L (38-126); Aspartate Aminotransferase 22 IU/L (17-59); BUN Creatinine Ratio 11.9 (6-22); Bilirubin Total 0.4 mg/dL (0.2-1.3); Blood Urea Nitrogen 23 mg/dL (9-20); Calcium 9.2 mg/dL (8.4-10.2); Carbon Dioxide 30 mmol/L (22-32); Chloride 106 mmol/L (98-107); Estimated Glomerular Filt Rate 33.5 mL/min (>60); Globulin 3.2 g/dL (1.7-4.1); Glucose 92 mg/dL (80-110); HEMOLYSIS < 15 (0-50); Magnesium 2.3 mg/dL (1.6-2.3); Potassium 4.9 mmol/L (3.4-5.1); Sodium 142 mmol/L (137-145); Total Protein 7.4 g/dL (6.3-8.2)
[2020-11-29 12:02] LABS: Thyroid Stimulating Hormone 2.74 uIU/mL (0.47-4.68)
[2020-12-01 10:54] LABS: Cholesterol, Total 261 mg/dL (100-199); HDL-Cholesterol 40 mg/dL (>39); HDL-Particle (Total) 24.9 umol/L (>=30.5); LDL Particle 2928 nmol/L (<1000); LDL Size 20.5 nm (>20.5); LDL-Cholsterol 196 mg/dL (0-99); LP-IR Score 71 (<=45); Small LDL- Particle 1749 nmol/L (<=527); Triglycerides 136 mg/dL (0-149)
== END ==
PROVIDERS: PCP Internal Medicine; Referring Provider Specialist; Visit Provider Specialist
DX: I10 Essential (primary) hypertension (principal); E78.00 Pure hypercholesterolemia, unspecified; R53.83 Other fatigue
CPT/HCPCS: 36415; 80053; 80061; 83704; 83735; 84443

== ENCOUNTER → 2021-01-02 10:24 | Outpatient (CLI) | payer MEDICARE, OTHER, SELFPAY ==
[2021-01-02 12:17] LABS: Add Manual Diff / Slide Review NO; Basophils Absolute Auto 0 /uL (0-100); Basophils Percent Auto 0.6 % (0-2); Eosinophils Absolute Auto 100 /uL (0-450); Eosinophils Percent Auto 1.6 % (2-4); Hematocrit 29.2 % (41-53); Hemoglobin 9.8 g/dL (13.5-17.5); Lymphocytes Absolute Auto 1900 /uL (1100-4500); Lymphocytes Percent Auto 37.4 % (25-40); Mean Corpuscular HGB Conc 33.5 % (30-36); Mean Corpuscular Hemoglobin 30.7 PG (26-34); Mean Corpuscular Volume 91.7 fL (80-100); Monocytes Absolute Auto 800 /uL (0-900); Monocytes Percent Auto 15.1 % (3-14); Neutrophils Absolute Auto 2300 /uL (1500-7000); Neutrophils Percent Auto 45.3 % (50-75); Platelet Count 169 X10^3/uL (150-400); Red Blood Cell Count 3.19 X10^6/uL (4.5-5.9); Red Cell Distribution Width 13.6 % (11.6-14.8)
[2021-01-02 12:31] LABS: BUN Creatinine Ratio 15.6 (6-22); Blood Urea Nitrogen 36 mg/dL (9-20); Calcium 8.8 mg/dL (8.4-10.2); Carbon Dioxide 28 mmol/L (22-32); Chloride 105 mmol/L (98-107); Estimated Glomerular Filt Rate 27.4 mL/min (>60); Glucose 98 mg/dL (80-110); HEMOLYSIS < 15 (0-50); Phosphorous 4.2 mg/dL (2.3-3.7); Potassium 5.4 mmol/L (3.4-5.1); Sodium 142 mmol/L (137-145)
[2021-01-03 07:43] LABS: Parathyroid Hormone Int 119 pg/mL (15-65)
== END ==
PROVIDERS: PCP Internal Medicine; Referring Provider Internal Medicine Nephrology; Visit Provider Internal Medicine Nephrology
DX: N05.9 Unspecified nephritic syndrome with unspecified morphologic changes (principal); D70.9 Neutropenia, unspecified; D63.1 Anemia in chronic kidney disease; E83.30 Disorder of phosphorus metabolism, unspecified; N25.81 Secondary hyperparathyroidism of renal origin
CPT/HCPCS: 36415; 80048; 83970; 84100; 85025

== ENCOUNTER → 2021-01-13 10:15 | Outpatient (CLI) | payer MEDICARE, OTHER, SELFPAY ==
[2021-01-13 11:34] LABS: Hematocrit 29.3 % (41-53); Hemoglobin 9.7 g/dL (13.5-17.5); Mean Corpuscular HGB Conc 33.2 % (30-36); Mean Corpuscular Hemoglobin 30.5 PG (26-34); Mean Corpuscular Volume 92.1 fL (80-100); Platelet Count 120 X10^3/uL (150-400); Red Blood Cell Count 3.18 X10^6/uL (4.5-5.9); Red Cell Distribution Width 14.2 % (11.6-14.8); White Blood Cell Count 6.3 X10^3/uL (4.5-11.0)
[2021-01-13 11:36] LABS: Add Manual Diff / Slide Review YES
[2021-01-13 12:14] LABS: Anisocytosis 1+; Neutrophils Absolute Manual 3024 /uL (3000-5900); Total Cells Counted 100
[2021-01-13 12:42] LABS: BUN Creatinine Ratio 14.5 (6-22); Blood Urea Nitrogen 34 mg/dL (9-20); Carbon Dioxide 25 mmol/L (22-32); Chloride 105 mmol/L (98-107); Estimated Glomerular Filt Rate 26.8 mL/min (>60); Glucose 93 mg/dL (80-110); HEMOLYSIS < 15 (0-50); Potassium 5.1 mmol/L (3.4-5.1); Sodium 142 mmol/L (137-145)
[2021-01-13 13:20] LABS: Thyroid Stimulating Hormone 1.58 uIU/mL (0.47-4.68)
== END ==
PROVIDERS: PCP Internal Medicine; Referring Provider Specialist; Visit Provider Specialist
DX: I10 Essential (primary) hypertension (principal); I47.1 Supraventricular tachycardia; R06.02 Shortness of breath
CPT/HCPCS: 36415; 80048; 84443; 85007; 85025

== ENCOUNTER → 2021-02-10 09:34 | Outpatient (CLI) | payer MEDICARE, OTHER, SELFPAY ==
[2021-02-10 11:13] LABS: BUN Creatinine Ratio 13.4 (6-22); Blood Urea Nitrogen 26 mg/dL (9-20); Calcium 8.9 mg/dL (8.4-10.2); Carbon Dioxide 28 mmol/L (22-32); Chloride 106 mmol/L (98-107); Estimated Glomerular Filt Rate 33.4 mL/min (>60); Glucose 102 mg/dL (80-110); HEMOLYSIS < 15 (0-50); Potassium 4.9 mmol/L (3.4-5.1); Sodium 141 mmol/L (137-145)
== END ==
PROVIDERS: PCP Internal Medicine; Referring Provider Internal Medicine Nephrology; Visit Provider Internal Medicine Nephrology
DX: N05.9 Unspecified nephritic syndrome with unspecified morphologic changes (principal)
CPT/HCPCS: 36415; 80048

== ENCOUNTER → 2021-03-11 14:59 | Outpatient (CLI) | payer MEDICARE, OTHER, SELFPAY ==
--- NOTE | 2021-03-11 15:02 | DI.RAD.S_ITS ---
PROCEDURE: XR TOE LT MIN 2V INDICATIONS: great toe pain TECHNIQUE: 3 views of the great toe(s) acquired. COMPARISON: None. FINDINGS: Bones: No fractures or dislocations. Osteoarthritic changes are noted in 1st MTP joint and 1st interphalangeal joint. No suspicious bony lesions. Soft tissues: No suspicious soft tissue densities. IMPRESSION: Left great toe osteoarthritis. No acute fracture or dislocation. Dictated by: Michael Leon M.D. on 03/11/2021 at 15:40 Approved by: Michael Leon M.D. on 03/11/2021 at 15:40
== END ==
PROVIDERS: PCP Internal Medicine; Referring Provider Nurse Practitioner Family; Visit Provider Nurse Practitioner Family
DX: S99.922A Unspecified injury of left foot, initial encounter (principal); M19.072 Primary osteoarthritis, left ankle and foot; X58.XXXA Exposure to other specified factors, initial encounter
CPT/HCPCS: 73660

== ENCOUNTER → 2021-04-30 14:13 | Outpatient (ROUT) | payer MEDICARE, OTHER, SELFPAY ==
[2021-04-30 14:28] LABS: D Dimer 620 ng/mL (<230)
== END ==
PROVIDERS: PCP Internal Medicine; Visit Provider Family Medicine
DX: D64.9 Anemia, unspecified (principal)
CPT/HCPCS: 85379

== ENCOUNTER → 2021-05-20 09:37 | Outpatient (CLI) | payer MEDICARE, OTHER, SELFPAY ==
[2021-05-20 13:08] LABS: Alanine Aminotransferase 24 IU/L (<50); Albumin 4.1 g/dL (3.5-5.0); Albumin Globulin Ratio 1.2 (1.0-2.8); Alkaline Phosphatase 51 U/L (38-126); Aspartate Aminotransferase 33 IU/L (17-59); BUN Creatinine Ratio 11.5 (6-22); Bilirubin Total 0.3 mg/dL (0.2-1.3); Blood Urea Nitrogen 20 mg/dL (9-20); Calcium 8.7 mg/dL (8.4-10.2); Carbon Dioxide 25 mmol/L (22-32); Chloride 108 mmol/L (98-107); Estimated Glomerular Filt Rate 37.8 mL/min (>60); Globulin 3.5 g/dL (1.7-4.1); Glucose 93 mg/dL (80-110); HEMOLYSIS < 15 (0-50); Magnesium 2.1 mg/dL (1.6-2.3); Potassium 4.6 mmol/L (3.4-5.1); Sodium 141 mmol/L (137-145); Total Protein 7.6 g/dL (6.3-8.2)
[2021-05-20 13:32] LABS: Prostate Specific Antigen Scrn 21.5 ng/mL (0.1-4.0)
[2021-05-23 10:19] LABS: Cholesterol, Total 150 mg/dL (100-199); HDL-Cholesterol 52 mg/dL (>39); HDL-Particle (Total) 34.5 umol/L (>=30.5); LDL Particle 967 nmol/L (<1000); LDL Size 21.2 nm (>20.5); LDL-Cholsterol 76 mg/dL (0-99); LP-IR Score 51 (<=45); Small LDL- Particle 422 nmol/L (<=527); Triglycerides 124 mg/dL (0-149)
== END ==
PROVIDERS: Urology; PCP Family Medicine; Referring Provider Specialist; Visit Provider Specialist
DX: Z12.5 Encounter for screening for malignant neoplasm of prostate (principal); I10 Essential (primary) hypertension; E78.00 Pure hypercholesterolemia, unspecified; N40.1 Benign prostatic hyperplasia with lower urinary tract symptoms; R35.1 Nocturia; R39.9 Unspecified symptoms and signs involving the genitourinary system; R60.0 Localized edema; Z87.448 Personal history of other diseases of urinary system; Z86.79 Personal history of other diseases of the circulatory system; Z87.898 Personal history of other specified conditions; Z86.69 Personal history of other diseases of the nervous system and sense organs
CPT/HCPCS: 36415; 51798; 80053; 80061; 81002; 83704; 83735; 99214; G0103

== ENCOUNTER → 2021-05-21 11:31 | Outpatient (CLI) | payer MEDICARE, OTHER, SELFPAY ==
[2021-05-21 13:12] LABS: Prostate Specific Antigen < 0.064 ng/mL (0.10-4.00)
== END ==
PROVIDERS: PCP Family Medicine; Referring Provider Urology; Visit Provider Urology
DX: R97.20 Elevated prostate specific antigen [PSA] (principal)
CPT/HCPCS: 84153

== ENCOUNTER → 2021-05-30 16:57 | Outpatient (CLI) | payer MEDICARE, OTHER, SELFPAY ==
[2021-05-30 18:23] LABS: Prostate Specific Antigen 21.7 ng/mL (0.10-4.00)
== END ==
PROVIDERS: PCP Family Medicine; Referring Provider Urology; Visit Provider Urology
DX: R97.20 Elevated prostate specific antigen [PSA] (principal)
CPT/HCPCS: 36415; 84153

== ENCOUNTER → 2021-06-05 14:38 | Outpatient (CLI) | payer MEDICARE, OTHER, SELFPAY ==
[2021-06-05 16:45] LABS: Prostate Specific Antigen 20.5 ng/mL (0.10-4.00)
== END ==
PROVIDERS: PCP Family Medicine; Referring Provider Urology; Visit Provider Urology
DX: R97.20 Elevated prostate specific antigen [PSA] (principal)
CPT/HCPCS: 36415; 84153

== ENCOUNTER → 2021-06-05 17:48 | Outpatient (CLI) | payer MEDICARE, OTHER, SELFPAY ==
--- NOTE | 2021-06-05 17:50 | DI.MRI.S_ITS ---
PROCEDURE: MR PELIS WO/W CON INDICATIONS: Prostate Volume Study TECHNIQUE: Coronal HASTE, axial T1 FSE with fat saturation, 3-plane nonbreath-hold T2 FSE. After the administration of contrast, dynamic axial, delayed axial and coronal VIBE or 2-D FLASH with fat saturation through the pelvis. Optional diffusion weighted imaging and ADC may be performed. COMPARISON: None. FINDINGS: Image quality: Diffusion weighted and dynamic contrast enhanced images are diagnostic. Prostate: Gland size is 4.4 x 3.6 x 3.3 cm; ellipsoid gland volume is 27 mL. No significant foci of intrinsic T1 hyperintensity to suggest hemorrhage. Multiple BPH nodules. Findings of prior TURP. Lesion size(s): Lesion 1: 1.8 x 1.2 cm, (/). In the sagittal plane this measures 2.1 cm craniocaudal dimension, (/). Lesion location(s) (sector): Lesion 1: Left base, mid gland, apex peripheral zone. Lesion description: Lesion 1: Oval T2 weighted imaging (T2WI) morphology score: Lesion 1: 5 Diffusion weighted imaging (DWI) morphology score: Lesion 1: 5 Dynamic contrast enhancement (DCE): Lesion 1: Present Lesion PI-RADS score: Lesion 1: PI-RADS 5. There is extraprostatic extension at the confluence of the seminal vesicles, (5/9). The right seminal vesicle is decompressed. Left seminal vesicle is prominent. Genitourinary system: Urinary bladder has a trabeculated appearance. Distal ureters are non distended. Bowel and peritoneum: No pathologic free pelvic fluid. Inferior colon and small bowel loops are normal in caliber. Nodes and vessels: Right external iliac node measuring 2.1 cm short axis diameter, (33/59). Soft tissues: No inguinal hernias. Bones: Marrow demonstrates normal overall signal, without lesions to suggest metastases. IMPRESSION: 1. Left prostate peripheral zone PI-RADS 5 observation measuring 2.1 cm in greatest dimension. Extraprostatic extension at the confluence of the seminal vesicles is suspected. 2. 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 3. Trabeculated appearance of the urinary bladder. Findings suggesting prior TURP. Prostate volume 27 cc. Preliminary results called to the office of Dr. Jean-Claude Hensley. Dictated by: Kwame Barreto M.D. on 06/06/2021 at 9:06 Approved by: Kwame Barreto M.D. on 06/06/2021 at 9:26
== END ==
PROVIDERS: PCP Family Medicine; Referring Provider Urology; Visit Provider Urology
DX: C77.5 Secondary and unspecified malignant neoplasm of intrapelvic lymph nodes (principal); C80.1 Malignant (primary) neoplasm, unspecified; N42.9 Disorder of prostate, unspecified; R97.20 Elevated prostate specific antigen [PSA]
CPT/HCPCS: 36415; 72197; 84153; A9579

== ENCOUNTER → 2021-06-13 07:48 | Outpatient (CLI) | payer MEDICARE, OTHER, SELFPAY ==
--- NOTE | 2021-06-13 07:48 | DI.NM.S_ITS ---
PROCEDURE: NM BONE SCAN WHOLE BODY RADIOPHARMACEUTICAL: 19.1 mCi Tc-99m MDP IV. INDICATIONS: Prostate cancer TECHNIQUE: Delayed whole-body scintigrams were obtained approximately 3-4 hours after intravenous injection of radiotracer. Anterior and posterior views were acquired from vertex to feet. Additional left and right oblique views of the pelvis were obtained. COMPARISON: [facility], , LUMBAR SPINE WO CON, 06/27/2020, 15:45. [facility], MR, MR PELVIS WO/W CON, 06/05/2021, 18:31. FINDINGS: Physiologic uptake is noted within the kidneys and bladder. Mild areas of increased uptake are noted within the spine and knees as well as left 1st digit. IMPRESSION: Degenerative changes without foci suspicious for metastatic disease. Dictated by: Ximena Langston M.D. on 06/13/2021 at 15:29 Approved by: Ximena Langston M.D. on 06/13/2021 at 15:30
== END ==
PROVIDERS: PCP Family Medicine; Referring Provider Urology; Visit Provider Urology
DX: C61 Malignant neoplasm of prostate (principal); C77.5 Secondary and unspecified malignant neoplasm of intrapelvic lymph nodes
CPT/HCPCS: 78306; A9503

== ENCOUNTER → 2021-08-19 09:21 | Outpatient (CLI) | payer MEDICARE, OTHER, SELFPAY ==
[2021-08-19 09:49] LABS: Add Manual Diff / Slide Review NO; Basophils Absolute Auto 0 /uL (0-100); Basophils Percent Auto 0.5 % (0-2); Eosinophils Absolute Auto 100 /uL (0-450); Eosinophils Percent Auto 1.3 % (2-4); Hematocrit 31.3 % (41-53); Hemoglobin 10.7 g/dL (13.5-17.5); Lymphocytes Absolute Auto 2900 /uL (1100-4500); Lymphocytes Percent Auto 44.8 % (25-40); Mean Corpuscular HGB Conc 34.1 % (30-36); Mean Corpuscular Hemoglobin 30.5 PG (26-34); Mean Corpuscular Volume 89.4 fL (80-100); Monocytes Absolute Auto 1200 /uL (0-900); Monocytes Percent Auto 19.3 % (3-14); Neutrophils Absolute Auto 2200 /uL (1500-7000); Neutrophils Percent Auto 34.1 % (50-75); Platelet Count 152 X10^3/uL (150-400); Red Blood Cell Count 3.51 X10^6/uL (4.5-5.9); Red Cell Distribution Width 15.7 % (11.6-14.8); White Blood Cell Count 6.4 X10^3/uL (4.5-11.0)
[2021-08-19 10:36] LABS: Prostate Specific Antigen 2.32 ng/mL (0.10-4.00)
== END ==
PROVIDERS: Internal Medicine Medical Oncology; PCP Family Medicine; Referring Provider Urology; Visit Provider Specialist
DX: C61 Malignant neoplasm of prostate (principal); C77.9 Secondary and unspecified malignant neoplasm of lymph node, unspecified; R97.20 Elevated prostate specific antigen [PSA]; D64.9 Anemia, unspecified; R39.9 Unspecified symptoms and signs involving the genitourinary system
CPT/HCPCS: 55876; 76942; 84153; 85025; 96372; 99215; A4648; J0694

== ENCOUNTER → 2021-08-21 07:53 | Outpatient (CLI) | payer MEDICARE, OTHER, SELFPAY ==
--- NOTE | 2021-08-21 | DI.ECHO.S_ITS ---
[facility]---------+ [facility] +---------+ : : [address] : [place] : : : : [id number] : : : : Phone: [phone]---------+ Echocardiogram Report + + :Name: SYDNIE GÓMEZ Study Date: 08/21/2021 Height: 70 in : :[facility] Weight: 205 lb : : Gender: Male BSA: 2.1 m2 : :: 1940 Age: 81 yrs BP: 137/81 mmHg: :Reason For Study: Edema : :Ordering Physician: MATTY, : :MARTHA Performed By: Augusto Friedman : :Referring: MARTHA STARR : + + Interpretation Summary 1) Normal left ventricular thickness and size with borderline reduced systolic function (EF about 50%). 2) The apical cap is dyskinetic. The inferolateral wall and the inferior wall are hypokinetic. 3) Mildly enlarged right ventricle with low normal function. 4) No significant valvular abnormalities. 5) The right ventricular systolic pressure is estimated to be at least 45 mmHg based on an estimated right atrial pressure of 8 mm Hg. 6) Compared to the Echo done 06/03/2019, systolic PA pressure is higher to this study. Procedure: A two-dimensional transthoracic echocardiogram with color flow and Doppler was performed. The study quality was technically difficult. Comparison is made with the echocardiogram of 06/03/2019. Left Ventricle: The left ventricle is normal in size and wall thickness. Left ventricular ejection fraction is estimated to be 50 +/- 5%. The apical cap is dyskinetic. The inferolateral wall and the inferior wall are hypokinetic. Diastolic function could not be accurately assessed due to atrial fibrillation. Right Ventricle: The right ventricle is mildly dilated. Right ventricular systolic function is at the lower limits of normal. Atria: The left atrium is severely dilated. The right atrium is moderately dilated. The interatrial septum grossly appears intact with no obvious evidence for an atrial septal defect. Mitral Valve: The mitral valve leaflets appear mildly thickened, but open well. There is mild mitral regurgitation. Aortic Valve: There is mild aortic valve sclerosis. There is no aortic valve stenosis. No aortic regurgitation is present. Tricuspid Valve: The tricuspid valve is normal in structure and function. There is mild tricuspid regurgitation. The right ventricular systolic pressure is estimated to be at least 45 mmHg based on an estimated right atrial pressure of 8 mm Hg. Pulmonic Valve: The pulmonic valve is not well seen, but is grossly normal. There is trace pulmonic regurgitation. Great Vessels: The aortic root is normal size. The IVC is dilated (diameter is greater than 2.1 cm) yet it collapses greater than 50% with a sniff. This suggests a right atrial pressure of 8 mm Hg. Pericardium/ Pleura There is no pericardial effusion. There is no pleural effusion. MMode/2D Measurements & Calculations LVIDd: 5.5 cm LVOT diam: 2.2 cm LVIDs: 4.8 cm Ao root diam: 3.6 cm FS: 12.5 % IVSd: 1.1 cm LVPWd: 1.1 cm LV chamorro. diameter/BSA (cm/m^2): 2.6 LV sys. diameter/BSA (cm/m^2): 2.3 LA dimension: 3.9 cm RA long axis: 6.0 cm LA A2 area: 31.2 cm2 LA A4 area: 26.6 cm2 LA length (vol): 6.5 cm LA vol: 107.7 ml LA vol index: 51.1 ml/m2 LVLs ap4: 7.9 cm LVLd ap2: 8.8 cm LVLs ap2: 8.5 cm TAPSE_phl: 2.1 cm Doppler Measurements & Calculations Ao V2 max: 91.8 cm/sec LVOT Max Paxton: 93.3 cm/sec Ao V2 mean: 71.9 cm/sec LV V1 max P.5 mmHg Ao max P.0 mmHg LV V1 VTI: 17.4 cm Ao mean P.0 mmHg BARBI(I,D): 3.2 cm2 Ao V2 VTI: 20.4 cm BARBI(V,D): 3.9 cm2 sev ratio: 0.85 BARBI indexed to BSA (cm^2/m^2): 1.5 TR max paxton: 302.0 cm/sec SV(LVOT): 66.1 ml TR max P.5 mmHg AV VR_phl: 1.0 BARBI(VTI)/BSA_phl: 1.5 Reading Physician:10:55 AM
== END ==
PROVIDERS: PCP Family Medicine; Referring Provider Family Medicine; Visit Provider Family Medicine
DX: R60.9 Edema, unspecified (principal); I08.3 Combined rheumatic disorders of mitral, aortic and tricuspid valves
CPT/HCPCS: C8929; Q9957

== ENCOUNTER → 2021-09-25 12:53 | Outpatient (CLI) | payer MEDICARE, OTHER, SELFPAY | PROVIDERS: PCP Family Medicine; Referring Provider Urology; Visit Provider Urology | DX: Z13.820 Encounter for screening for osteoporosis (principal); C61 Malignant neoplasm of prostate; M85.852 Other specified disorders of bone density and structure, left thigh; M85.851 Other specified disorders of bone density and structure, right thigh; T38.7X5A Adverse effect of androgens and anabolic congeners, initial encounter; M19.90 Unspecified osteoarthritis, unspecified site | CPT/HCPCS: 77080 ==

== ENCOUNTER → 2021-10-02 14:34 | Outpatient (CLI) | payer MEDICARE, OTHER, SELFPAY ==
[2021-10-02 15:14] LABS: Add Manual Diff / Slide Review NO; Basophils Absolute Auto 0 /uL (0-100); Basophils Percent Auto 0.4 % (0-2); Eosinophils Absolute Auto 100 /uL (0-450); Eosinophils Percent Auto 2.5 % (2-4); Hematocrit 26.1 % (41-53); Hemoglobin 8.8 g/dL (13.5-17.5); Lymphocytes Absolute Auto 1000 /uL (1100-4500); Lymphocytes Percent Auto 32.1 % (25-40); Mean Corpuscular HGB Conc 33.7 % (30-36); Mean Corpuscular Hemoglobin 30.3 PG (26-34); Mean Corpuscular Volume 89.8 fL (80-100); Monocytes Absolute Auto 700 /uL (0-900); Monocytes Percent Auto 20.5 % (3-14); Neutrophils Absolute Auto 1400 /uL (1500-7000); Neutrophils Percent Auto 44.5 % (50-75); Platelet Count 81 X10^3/uL (150-400); Red Blood Cell Count 2.91 X10^6/uL (4.5-5.9); Red Cell Distribution Width 16.2 % (11.6-14.8); White Blood Cell Count 3.2 X10^3/uL (4.5-11.0)
[2021-10-02 15:29] LABS: Alanine Aminotransferase 29 IU/L (<50); Albumin 3.9 g/dL (3.5-5.0); Albumin Globulin Ratio 1.3 (1.0-2.8); Alkaline Phosphatase 55 U/L (38-126); Aspartate Aminotransferase 37 IU/L (17-59); BUN Creatinine Ratio 17.1 (6-22); Bilirubin Total 0.4 mg/dL (0.2-1.3); Blood Urea Nitrogen 31 mg/dL (9-20); Calcium 8.3 mg/dL (8.4-10.2); Carbon Dioxide 25 mmol/L (22-32); Chloride 106 mmol/L (98-107); Estimated Glomerular Filt Rate 37 mL/min (>60); Glucose 138 mg/dL (80-110); HEMOLYSIS < 15 (0-50); Potassium 3.8 mmol/L (3.4-5.1); Sodium 141 mmol/L (137-145); Total Protein 6.9 g/dL (6.3-8.2)
[2021-10-02 15:58] LABS: Prostate Specific Antigen 0.447 ng/mL (0.10-4.00)
== END ==
PROVIDERS: Internal Medicine Medical Oncology; PCP Family Medicine; Referring Provider Urology; Visit Provider Urology
DX: C61 Malignant neoplasm of prostate (principal); R97.20 Elevated prostate specific antigen [PSA]
CPT/HCPCS: 36415; 80053; 84153; 85025

== ENCOUNTER → 2021-11-15 10:16 | Outpatient (CLI) | payer MEDICARE, OTHER, SELFPAY ==
[2021-11-15 11:02] LABS: Hematocrit 26.5 % (41-53); Hemoglobin 8.9 g/dL (13.5-17.5); Mean Corpuscular HGB Conc 33.5 % (30-36); Mean Corpuscular Volume 92.6 fL (80-100); Platelet Count 112 X10^3/uL (150-400); Red Blood Cell Count 2.86 X10^6/uL (4.5-5.9); Red Cell Distribution Width 15.5 % (11.6-14.8); White Blood Cell Count 3.5 X10^3/uL (4.5-11.0)
[2021-11-15 11:35] LABS: BUN Creatinine Ratio 14.3 (6-22); Blood Urea Nitrogen 27 mg/dL (9-20); Calcium 8.8 mg/dL (8.4-10.2); Carbon Dioxide 25 mmol/L (22-32); Chloride 103 mmol/L (98-107); Estimated Glomerular Filt Rate 35 mL/min (>60); Glucose 105 mg/dL (80-110); HEMOLYSIS < 15 (0-50); Potassium 4.2 mmol/L (3.4-5.1); Sodium 140 mmol/L (137-145)
[2021-11-15 11:37] LABS: Creatinine Urine Random 150.8 mg/dL; Protein (Total) Urine Random 33 mg/dL (0-12); Protein Creatinine Ratio Urine 0.21 GRAM/24H
== END ==
PROVIDERS: PCP Family Medicine; Referring Provider Internal Medicine Nephrology; Visit Provider Internal Medicine Nephrology
DX: D70.9 Neutropenia, unspecified (principal); D63.1 Anemia in chronic kidney disease; N05.9 Unspecified nephritic syndrome with unspecified morphologic changes; R80.9 Proteinuria, unspecified
CPT/HCPCS: 36415; 80048; 82570; 84156; 85027

== ENCOUNTER → 2021-12-03 12:47 | Outpatient (CLI) | payer MEDICARE, OTHER, SELFPAY ==
[2021-12-03 14:35] LABS: Add Manual Diff / Slide Review NO; Basophils Absolute Auto 0 /uL (0-100); Basophils Percent Auto 0.5 % (0-2); Eosinophils Absolute Auto 100 /uL (0-450); Eosinophils Percent Auto 1.3 % (2-4); Hematocrit 24.6 % (41-53); Hemoglobin 8.6 g/dL (13.5-17.5); Lymphocytes Absolute Auto 600 /uL (1100-4500); Lymphocytes Percent Auto 15.2 % (25-40); Mean Corpuscular HGB Conc 34.8 % (30-36); Mean Corpuscular Hemoglobin 31.9 PG (26-34); Mean Corpuscular Volume 91.5 fL (80-100); Monocytes Absolute Auto 900 /uL (0-900); Neutrophils Absolute Auto 2300 /uL (1500-7000); Platelet Count 101 X10^3/uL (150-400); Red Blood Cell Count 2.69 X10^6/uL (4.5-5.9); Red Cell Distribution Width 14.8 % (11.6-14.8); White Blood Cell Count 3.9 X10^3/uL (4.5-11.0)
[2021-12-03 14:53] LABS: Alanine Aminotransferase 42 IU/L (<50); Albumin 3.9 g/dL (3.5-5.0); Albumin Globulin Ratio 1.3 (1.0-2.8); Alkaline Phosphatase 63 U/L (38-126); Aspartate Aminotransferase 79 IU/L (17-59); BUN Creatinine Ratio 18.3 (6-22); Bilirubin Total 0.4 mg/dL (0.2-1.3); Blood Urea Nitrogen 31 mg/dL (9-20); Calcium 8.7 mg/dL (8.4-10.2); Carbon Dioxide 26 mmol/L (22-32); Chloride 104 mmol/L (98-107); Estimated Glomerular Filt Rate 40 mL/min (>60); Globulin 3.1 g/dL (1.7-4.1); Glucose 93 mg/dL (80-110); HEMOLYSIS < 15 (0-50); Potassium 3.7 mmol/L (3.4-5.1); Sodium 141 mmol/L (137-145)
[2021-12-03 14:54] LABS: Alanine Aminotransferase 43 IU/L (<50); Albumin Globulin Ratio 1.3 (1.0-2.8); Alkaline Phosphatase 62 U/L (38-126); Aspartate Aminotransferase 79 IU/L (17-59); Bilirubin Total 0.3 mg/dL (0.2-1.3); Blood Urea Nitrogen 31 mg/dL (9-20); Calcium 8.8 mg/dL (8.4-10.2); Carbon Dioxide 27 mmol/L (22-32); Chloride 104 mmol/L (98-107); Estimated Glomerular Filt Rate 39 mL/min (>60); Glucose 93 mg/dL (80-110); HEMOLYSIS < 15 (0-50); Magnesium 2.2 mg/dL (1.6-2.3); Potassium 3.8 mmol/L (3.4-5.1); Sodium 140 mmol/L (137-145)
[2021-12-05 09:42] LABS: Cholesterol, Total 123 mg/dL (100-199); HDL-Cholesterol 47 mg/dL (>39); LDL Particle 828 nmol/L (<1000); LDL Size 19.7 nm (>20.5); LDL-Cholsterol 55 mg/dL (0-99); LP-IR Score 46 (<=45); Small LDL- Particle 556 nmol/L (<=527); Triglycerides 119 mg/dL (0-149)
== END ==
PROVIDERS: Internal Medicine Medical Oncology; PCP Family Medicine; Referring Provider Specialist; Visit Provider Specialist
DX: E78.00 Pure hypercholesterolemia, unspecified (principal); I10 Essential (primary) hypertension; C61 Malignant neoplasm of prostate; D64.9 Anemia, unspecified
CPT/HCPCS: 36415; 80053; 80061; 83704; 83735; 85025

== ENCOUNTER → 2021-12-15 16:58 | Outpatient (CLI) | payer MEDICARE, OTHER, SELFPAY ==
--- NOTE | 2021-12-15 17:03 | DI.RAD.S_ITS ---
PROCEDURE: XR CHEST 2V INDICATIONS: Dyspnea TECHNIQUE: 2 views of the chest were acquired. COMPARISON: [facility], CR, XR CHEST 1V, 06/02/2019, 10:02. FINDINGS: Surgical changes and devices: None. Lungs and pleura: Lungs are edematous. There are bilateral small subpulmonic pleural effusions but no pneumothorax. Mediastinum: Mediastinal contours are normal. Heart size is normal. Bones and chest wall: No suspicious bony abnormalities. Soft tissues appear unremarkable. IMPRESSION: Generalized mild pulmonary edema with small subpulmonic pleural effusions. Suspect acute CHF as the underlying cause. Cardiomegaly at this time is not present, however. Dictated by: Trey Marquez M.D. on 12/15/2021 at 20:52 Approved by: Trey Marquez M.D. on 12/15/2021 at 20:52
[2021-12-15 17:42] LABS: Add Manual Diff / Slide Review NO; Basophils Absolute Auto 0 /uL (0-100); Basophils Percent Auto 0.5 % (0-2); Eosinophils Absolute Auto 100 /uL (0-450); Eosinophils Percent Auto 1.7 % (2-4); Hematocrit 28.1 % (41-53); Hemoglobin 9.6 g/dL (13.5-17.5); Lymphocytes Absolute Auto 1000 /uL (1100-4500); Lymphocytes Percent Auto 24.7 % (25-40); Mean Corpuscular HGB Conc 34.2 % (30-36); Mean Corpuscular Hemoglobin 31.4 PG (26-34); Mean Corpuscular Volume 91.9 fL (80-100); Monocytes Absolute Auto 1000 /uL (0-900); Monocytes Percent Auto 24.4 % (3-14); Neutrophils Absolute Auto 2000 /uL (1500-7000); Neutrophils Percent Auto 48.7 % (50-75); Platelet Count 120 X10^3/uL (150-400); Red Blood Cell Count 3.06 X10^6/uL (4.5-5.9); Red Cell Distribution Width 14.5 % (11.6-14.8); White Blood Cell Count 4.2 X10^3/uL (4.5-11.0)
[2021-12-15 17:59] LABS: Alanine Aminotransferase 38 IU/L (<50); Albumin 4.2 g/dL (3.5-5.0); Albumin Globulin Ratio 1.3 (1.0-2.8); Alkaline Phosphatase 61 U/L (38-126); Aspartate Aminotransferase 53 IU/L (17-59); BUN Creatinine Ratio 14.2 (6-22); Bilirubin Total 0.6 mg/dL (0.2-1.3); Blood Urea Nitrogen 23 mg/dL (9-20); Calcium 9.1 mg/dL (8.4-10.2); Carbon Dioxide 25 mmol/L (22-32); Chloride 104 mmol/L (98-107); Estimated Glomerular Filt Rate 42 mL/min (>60); Globulin 3.3 g/dL (1.7-4.1); Glucose 101 mg/dL (80-110); HEMOLYSIS < 15 (0-50); Sodium 140 mmol/L (137-145); Total Protein 7.5 g/dL (6.3-8.2)
[2021-12-15 18:08] LABS: NT-proBNP (BNP-Adult 18+) 2090 pg/mL (<450)
== END ==
PROVIDERS: PCP Family Medicine; Referring Provider Family Medicine; Visit Provider Family Medicine
DX: R06.02 Shortness of breath (principal); J81.1 Chronic pulmonary edema; J90 Pleural effusion, not elsewhere classified
CPT/HCPCS: 36415; 71046; 80053; 83880; 85025

== ENCOUNTER → 2021-12-16 11:35 | Outpatient (CLI) | payer MEDICARE, OTHER, SELFPAY ==
[2021-12-16 12:13] VITALS: BP 151/88; PULSE 80; RESP 18; TEMP 35.7; O2SAT 98
[2021-12-16 12:58] VITALS: BP 158/86; PULSE 79
[2021-12-16] MEDS: EPOETIN ALFA-EPBX 20,000 UNIT/ML VIAL 20000 UNIT SUBCUT (13:01)
--- NOTE | 2021-12-16 15:07 | ONC.PHA ---
EPO Injection: S/O: 81 y.o. female, with diagnosis of anemia of renal disease, is here to start EPO 20,000 units SubQ injection weekly. V.O. (rb) Dr. Gresham, hold EPO dose if Hgb equal 10 or above. A/P: Reviewed 12/15/2021 labs: Hgb/Hct = 9.6/28.1 Last iron panel (12/09/2021): Ferritin = 280, Transferrin = 224, % Saturation = 17, TIBC = 307, Iron = 53 all are WNL, except, % saturation is slightly low. Last vitamin B-12 level (12/09/2021): 898 (WNL) Last folate level (10/29/2021): 20.2 (H) Today BP = 151/88 Please note, patient is currently on following BP medications: amlodipine 5mg BID, hydralazine 50mg TID and Lisinopril 10mg daily. Per RN reported, patient took his BP medications this morning. Reviewed MD 12/09/2021 note, start EPO 20,000 units weekly. Allergies Allergy/AdvReac Type Severity Reaction Status Date / Time No Known Drug Allergies Allergy Verified 10/15/21 09:13 Vital Signs Temperature 96.2 F 12/16/21 12:13 Pulse Rate 79 12/16/21 12:58 Pulse Rate 80 12/16/21 12:13 Respiratory Rate 18 12/16/21 12:13 Blood Pressure 158/86 12/16/21 12:58 Blood Pressure 151/88 12/16/21 12:13 Pulse Oximetry 98 12/16/21 12:13
--- NOTE | 2021-12-16 16:39 | PC.NURSE ---
First Rettacrit today. Pt given written info on the med and discussed plan: weekly labs prior to weekly rettacrit with re-evaluation by MD in early Feb. Discussed that BM biopsy was normal; likely cause of anemia is renal insufficiency. Pt is nervous and fidgety. On B/P med regimen. B/P 150's/80's as noted.Reports his systolic is often in the 140's. Pt has had his meds today and understands the importance of maintaining his med schedule especially on the days he comes for his shot. He and expressed understanding
== END ==
PROVIDERS: PCP Family Medicine; Referring Provider Family Medicine; Visit Provider Internal Medicine Medical Oncology
DX: C61 Malignant neoplasm of prostate (principal); C77.5 Secondary and unspecified malignant neoplasm of intrapelvic lymph nodes; N18.9 Chronic kidney disease, unspecified; D63.1 Anemia in chronic kidney disease
CPT/HCPCS: 96372; Q5106

== ENCOUNTER → 2021-12-23 11:35 | Outpatient (CLI) | payer MEDICARE, OTHER, SELFPAY ==
[2021-12-23 11:47] VITALS: BP 168/89; PULSE 92; RESP 18; TEMP 36.3; O2SAT 98
[2021-12-23 12:07] VITALS: BP 150/82; PULSE 81; RESP 18
[2021-12-23] MEDS: EPOETIN ALFA-EPBX 20,000 UNIT/ML VIAL 20000 UNIT SUBCUT (12:34)
== END ==
PROVIDERS: PCP Family Medicine; Referring Provider Internal Medicine Medical Oncology; Visit Provider Internal Medicine Medical Oncology
DX: N18.9 Chronic kidney disease, unspecified (principal); C61 Malignant neoplasm of prostate; C77.5 Secondary and unspecified malignant neoplasm of intrapelvic lymph nodes; D63.1 Anemia in chronic kidney disease
CPT/HCPCS: 36415; 85007; 85025; 96372; Q5106

== ENCOUNTER → 2022-01-06 11:37 | Outpatient (CLI) | payer MEDICARE, OTHER, SELFPAY ==
[2022-01-06 11:47] VITALS: BP 124/58; PULSE 98; RESP 16; TEMP 35.9; O2SAT 95
[2022-01-06] MEDS: EPOETIN ALFA-EPBX 20,000 UNIT/ML VIAL 20000 UNIT SUBCUT (11:54)
== END ==
PROVIDERS: PCP Family Medicine; Referring Provider Internal Medicine Medical Oncology; Visit Provider Internal Medicine Medical Oncology
DX: N18.9 Chronic kidney disease, unspecified (principal); D63.1 Anemia in chronic kidney disease
CPT/HCPCS: 96372; Q5106

== ENCOUNTER → 2022-01-13 08:07 | Outpatient (CLI) | payer MEDICARE, OTHER, SELFPAY ==
[2022-01-13 09:10] LABS: Prostate Specific Antigen 0.307 ng/mL (0.10-4.00)
== END ==
PROVIDERS: PCP Family Medicine; Referring Provider Urology; Visit Provider Urology
DX: C61 Malignant neoplasm of prostate (principal)
CPT/HCPCS: 84153

== ENCOUNTER → 2022-01-20 11:40 | Outpatient (CLI) | payer MEDICARE, OTHER, SELFPAY ==
[2022-01-20 11:52] VITALS: BP 140/76; PULSE 86; RESP 18; TEMP 36.1; O2SAT 97
[2022-01-20] MEDS: EPOETIN ALFA-EPBX 20,000 UNIT/ML VIAL 20000 UNIT SUBCUT (12:04)
== END ==
PROVIDERS: PCP Family Medicine; Referring Provider Internal Medicine Medical Oncology; Visit Provider Internal Medicine Medical Oncology
DX: C61 Malignant neoplasm of prostate (principal); C77.5 Secondary and unspecified malignant neoplasm of intrapelvic lymph nodes; N18.9 Chronic kidney disease, unspecified; D63.1 Anemia in chronic kidney disease
CPT/HCPCS: 36415; 85007; 85025; 96372; Q5106

== ENCOUNTER → 2022-02-02 08:34 | Outpatient (CLI) | payer MEDICARE, OTHER, SELFPAY ==
[2022-02-02 09:05] LABS: Add Manual Diff / Slide Review NO; Basophils Absolute Auto 0 /uL (0-100); Basophils Percent Auto 0.4 % (0-2); Eosinophils Absolute Auto 100 /uL (0-450); Eosinophils Percent Auto 2.3 % (2-4); Hematocrit 29.9 % (41-53); Hemoglobin 9.7 g/dL (13.5-17.5); Lymphocytes Absolute Auto 1200 /uL (1100-4500); Lymphocytes Percent Auto 34.7 % (25-40); Mean Corpuscular HGB Conc 32.6 % (30-36); Mean Corpuscular Hemoglobin 28.6 PG (26-34); Mean Corpuscular Volume 87.7 fL (80-100); Monocytes Absolute Auto 900 /uL (0-900); Monocytes Percent Auto 25.2 % (3-14); Neutrophils Absolute Auto 1300 /uL (1500-7000); Neutrophils Percent Auto 37.4 % (50-75); Platelet Count 108 X10^3/uL (150-400); Red Cell Distribution Width 16.4 % (11.6-14.8); White Blood Cell Count 3.4 X10^3/uL (4.5-11.0)
[2022-02-02 10:10] LABS: Alanine Aminotransferase 50 IU/L (<50); Albumin 3.7 g/dL (3.5-5.0); Albumin Globulin Ratio 1.2 (1.0-2.8); Alkaline Phosphatase 78 U/L (38-126); Aspartate Aminotransferase 64 IU/L (17-59); BUN Creatinine Ratio 12.8 (6-22); Bilirubin Total 0.5 mg/dL (0.2-1.3); Blood Urea Nitrogen 25 mg/dL (9-20); Calcium 8.2 mg/dL (8.4-10.2); Carbon Dioxide 29 mmol/L (22-32); Chloride 102 mmol/L (98-107); Estimated Glomerular Filt Rate 34 mL/min (>60); Globulin 3.1 g/dL (1.7-4.1); Glucose 101 mg/dL (80-110); HEMOLYSIS < 15 (0-50); Magnesium 2.2 mg/dL (1.6-2.3); Potassium 3.5 mmol/L (3.4-5.1); Sodium 141 mmol/L (137-145); Total Protein 6.8 g/dL (6.3-8.2)
[2022-02-05 10:08] LABS: Cholesterol, Total 103 mg/dL (100-199); HDL-Cholesterol 38 mg/dL (>39); HDL-Particle (Total) 24.9 umol/L (>=30.5); LDL Particle 961 nmol/L (<1000); LDL Size 20.2 nm (>20.5); LDL-Cholsterol 47 mg/dL (0-99); LP-IR Score 35 (<=45); Small LDL- Particle 547 nmol/L (<=527); Triglycerides 90 mg/dL (0-149)
== END ==
PROVIDERS: Internal Medicine Medical Oncology; PCP Family Medicine; Referring Provider Specialist; Visit Provider Specialist
DX: I10 Essential (primary) hypertension (principal); E78.00 Pure hypercholesterolemia, unspecified; R06.02 Shortness of breath; D63.1 Anemia in chronic kidney disease; N18.9 Chronic kidney disease, unspecified
CPT/HCPCS: 36415; 80053; 80061; 83704; 83735; 85025

== ENCOUNTER → 2022-02-03 11:40 | Outpatient (CLI) | payer MEDICARE, OTHER, SELFPAY ==
[2022-02-03 12:01] VITALS: BP 132/80; PULSE 94; RESP 16; TEMP 37.2; O2SAT 99
[2022-02-03] MEDS: EPOETIN ALFA-EPBX 20,000 UNIT/ML VIAL 20000 UNIT SUBCUT (12:23)
== END ==
PROVIDERS: PCP Family Medicine; Referring Provider Internal Medicine Medical Oncology; Visit Provider Internal Medicine Medical Oncology
DX: C61 Malignant neoplasm of prostate (principal); C77.5 Secondary and unspecified malignant neoplasm of intrapelvic lymph nodes; N18.9 Chronic kidney disease, unspecified; D63.1 Anemia in chronic kidney disease
CPT/HCPCS: 96372; Q5106

== ENCOUNTER → 2022-02-04 09:39 | Outpatient (CLI) | payer MEDICARE, OTHER, SELFPAY ==
[2022-02-04 11:18] LABS: Hematocrit 28.1 % (41-53); Hemoglobin 9.2 g/dL (13.5-17.5); Mean Corpuscular HGB Conc 32.8 % (30-36); Mean Corpuscular Hemoglobin 28.6 PG (26-34); Mean Corpuscular Volume 87.3 fL (80-100); Platelet Count 110 X10^3/uL (150-400); Red Blood Cell Count 3.22 X10^6/uL (4.5-5.9); Red Cell Distribution Width 16.1 % (11.6-14.8); White Blood Cell Count 3.4 X10^3/uL (4.5-11.0)
[2022-02-04 11:51] LABS: HEMOLYSIS < 15 (0-50); Iron 42 ug/dL (49-181)
[2022-02-04 12:01] LABS: Percent Iron Saturation 15 % (20-50); Total Iron Binding Capacity 271 ug/dL (261-462); Transferrin 211 mg/dL (206-381)
[2022-02-04 12:05] LABS: BUN Creatinine Ratio 13.4 (6-22); Blood Urea Nitrogen 24 mg/dL (9-20); Calcium 8.4 mg/dL (8.4-10.2); Carbon Dioxide 29 mmol/L (22-32); Chloride 100 mmol/L (98-107); Estimated Glomerular Filt Rate 37 mL/min (>60); Glucose 91 mg/dL (80-110); HEMOLYSIS < 15 (0-50); Phosphorous 4.2 mg/dL (2.3-3.7); Potassium 3.7 mmol/L (3.4-5.1); Sodium 139 mmol/L (137-145)
[2022-02-04 12:38] LABS: Ferritin 216 ng/mL (18-464)
[2022-02-04 13:09] LABS: Folate > 20.0 ng/mL (2.76-20.0)
[2022-02-05 10:01] LABS: Parathyroid Hormone Int 78 pg/mL (15-65)
== END ==
PROVIDERS: PCP Family Medicine; Referring Provider Internal Medicine Nephrology; Visit Provider Internal Medicine Nephrology
DX: N05.9 Unspecified nephritic syndrome with unspecified morphologic changes (principal); D63.1 Anemia in chronic kidney disease; E83.30 Disorder of phosphorus metabolism, unspecified; N25.81 Secondary hyperparathyroidism of renal origin; D70.9 Neutropenia, unspecified; D50.0 Iron deficiency anemia secondary to blood loss (chronic); D64.9 Anemia, unspecified
CPT/HCPCS: 36415; 80048; 82728; 82746; 83540; 83550; 83970; 84100; 85027

== ENCOUNTER → 2022-02-20 14:44 | Outpatient (CLI) | payer MEDICARE, OTHER, SELFPAY ==
[2022-02-20 16:38] LABS: Free T4, Direct Thyroxine 1.27 ng/dL (0.78-2.19)
[2022-02-20 16:52] LABS: Thyroid Stimulating Hormone 2.35 uIU/mL (0.47-4.68)
== END ==
PROVIDERS: PCP Family Medicine; Referring Provider Internal Medicine Nephrology; Visit Provider Internal Medicine Nephrology
DX: E03.9 Hypothyroidism, unspecified (principal)
CPT/HCPCS: 36415; 84439; 84443

== ENCOUNTER → 2022-03-04 11:02 | Outpatient (CLI) | payer MEDICARE, OTHER, SELFPAY ==
[2022-03-04 11:25] VITALS: BP 150/72; PULSE 80; RESP 18; O2SAT 100
[2022-03-04] MEDS: EPOETIN ALFA 20,000 UNIT/ML VIAL 20000 UNIT SUBCUT (11:48)
== END ==
PROVIDERS: PCP Family Medicine; Referring Provider Family Medicine; Visit Provider Internal Medicine Medical Oncology
DX: C61 Malignant neoplasm of prostate (principal); C77.5 Secondary and unspecified malignant neoplasm of intrapelvic lymph nodes; N18.9 Chronic kidney disease, unspecified; D63.1 Anemia in chronic kidney disease
CPT/HCPCS: 96372; J0885

== ENCOUNTER → 2022-03-23 15:09 | Outpatient (CLI) | payer MEDICARE, OTHER, SELFPAY | PROVIDERS: PCP Family Medicine; Referring Provider Radiology Radiation Oncology; Visit Provider Radiology Radiation Oncology | DX: C61 Malignant neoplasm of prostate (principal) | CPT/HCPCS: 36415; 84153 ==

== ENCOUNTER → 2022-03-24 08:53 | Outpatient (CLI) | payer MEDICARE, OTHER, SELFPAY ==
--- NOTE | 2022-03-24 08:56 | DI.ECHO.S_ITS ---
[facility] +---------+ : : [address] : [address] : : : : [id number] : : : : Phone: [phone]+ Echocardiogram Report + + :Name: SYDNIE GÓMEZ Study Date: 03/24/2022 Height: 70.5 in: :[facility] ReadingLocation: Weight: 185 lb : : Gender: Male BSA: 2.0 m2 : :: 1940 Age: 82 yrs BP: 160/99 mmHg: :Reason For Study: ATRIAL FIBRILLATION : :Ordering Physician: MIGUELINA, : :MARTHA Performed By: Tasneem Garcia : :Referring: MARTHA MCINTYRE : + + Interpretation Summary The left ventricle is mildly enlarged but similar in size to the previous exam. Left ventricular systolic function appears moderately reduced with an estimated ejection fraction of 35 to 40% with mild global hypokinesis with severe hypokinesis to akinesis of the inferior and inferolateral wall that remains unchanged although overall contractility appears slightly less dynamic. Diastolic function and filling pressures cannot be assessed because of atrial fibrillation although there is some evidence for elevated filling pressures. The right ventricle is mildly enlarged and borderline hypokinetic and appears slightly larger and slightly less dynamic compared to the previous study. Right ventricular systolic pressure is estimated at 40 mmHg with a CVP of 3 mmHg, likely similar to the previous exam although CVP is likely lower. There is severe left atrial enlargement and moderate right atrial enlargement, the former measuring slightly larger compared to the previous study. The mitral valve leaflets are moderately thickened and slightly calcified with probable moderate to severe mitral regurgitation which appears more prominent compared to the previous study although is better imaged. There is mild to moderate tricuspid regurgitation which is also slightly more prominent. There is aortic valve sclerosis without stenosis. The ascending aorta and aortic arch are mildly enlarged. The patient was in atrial fibrillation at 60 to 75 bpm during the exam. Procedure: A two-dimensional transthoracic echocardiogram with color flow and Doppler was performed. The study quality was technically adequate. Comparison is made with the echocardiogram of 08/21/2021. The patient was in atrial fibrillation with heart rates between 68-75 bpm during the exam. This is new compared to the previous study. Left Ventricle: The left ventricle is mildly dilated. The estimated left ventricular end diastolic volume is 146 ml. This is unchanged compared to the previous study. There is normal left ventricular wall thickness. Left ventricular systolic function is moderately reduced. The ejection fraction is estimated to be 35-40%. There is mild global hypokinesis of the left ventricle. There is severe hypokinesis to akinesis of the inferior and inferolateral wall that remains unchanged although overall contractility appears slightly less dynamic. Diastolic function could not be accurately assessed due to atrial fibrillation. Right Ventricle: The right ventricle is mildly dilated. Right ventricular systolic function is borderline reduced. This is slightly larger and slightly less dynamic compared to the previous study. Atria: The left atrium is severely dilated. The left atrium has mildly increased in size since the prior echo exam. The right atrium is moderately dilated. This is unchanged compared to the previous study. There is no Doppler evidence for an interatrial shunt. Mitral Valve: The mitral valve leaflets appear mildly thickened, but open well. The mitral valve leaflets are mildly calcified. There is moderate to severe mitral regurgitation. This is more prominent but better imaged compared to the previous study. Aortic Valve: The aortic valve is trileaflet. The aortic valve is moderately calcified. There is mildly reduced leaflet mobility. There is no aortic valve stenosis. There is mild aortic regurgitation. Tricuspid Valve: The tricuspid valve is normal in structure and function. There is mild to moderate tricuspid regurgitation. This is more prominent but better imaged compared to the previous study. The right ventricular systolic pressure is estimated to be at least 40 mmHg based on an estimated right atrial pressure of 3 mm Hg. This is unchanged compared to the previous study. Pulmonic Valve: The pulmonic valve leaflets are thin and pliable; valve motion is normal. There is trace pulmonic regurgitation. Great Vessels: The aortic root is normal size. The ascending aorta is mildly enlarged. The aortic arch is mildly enlarged. The IVC is of normal diameter and collapses greater than 50% with a sniff. This suggests a low right atrial pressure of 3 mm Hg. Pericardium/ Pleura There is no pericardial effusion. There is no pleural effusion. MMode/2D Measurements & Calculations LVIDd: 6.0 cm LVOT diam: 2.3 cm LVIDs: 4.6 cm Ao root diam: 3.7 cm FS: 23.0 % asc Aorta Diam: 3.7 cm IVSd: 1.0 cm Ao Arch Diam (Prox Trans): 3.2 cm LVPWd: 0.78 cm LV chamorro. diameter/BSA (cm/m^2): 2.9 LV sys. diameter/BSA (cm/m^2): 2.3 LA A2 area: 31.7 cm2 RA long axis: 5.8 cm LA A4 area: 31.5 cm2 RA area: 23.9 cm2 LA length (vol): 6.7 cm RA vol: 83.5 ml LA vol: 126.1 ml RA : 41.1 ml/m2 LA vol index: 62.1 ml/m2 IVC diam: 1.5 cm RVD1 (basal): 4.2 cm TAPSE: 1.6 cm Doppler Measurements & Calculations Ao V2 max: 131.7 cm/sec LVOT Max Paxton: 63.3 cm/sec Ao V2 mean: 93.8 cm/sec LV V1 max P.6 mmHg Ao max P.0 mmHg LV V1 VTI: 12.6 cm Ao mean P.0 mmHg BARBI(I,D): 2.0 cm2 Ao V2 VTI: 26.4 cm BARBI(V,D): 2.0 cm2 sev ratio: 0.48 BARBI indexed to BSA (cm^2/m^2): 0.97 MV E max paxton: 84.7 cm/sec TR max paxton: 304.3 cm/sec MV A max paxton: 1.5 cm/sec TR max P.0 mmHg MV E/A: 57.0 PA pr(Accel): 32.8 mmHg Med Peak E' Paxton: 5.2 cm/sec E/E' med: 16.3 Lat Peak E' Paxton: 5.0 cm/sec E/E' lat: 17.0 E/e' average: 16.7 MV dec time: 0.24 sec MR ERO: 0.27 cm2 MR PISA: 4.0 cm2 SV(LVOT): 51.8 ml MR flow rate: 149.5 cm3/sec MR PISA radius: 0.80 cm Reading Physician:04:55 PM
== END ==
PROVIDERS: PCP Family Medicine; Referring Provider Specialist; Visit Provider Specialist
DX: I08.3 Combined rheumatic disorders of mitral, aortic and tricuspid valves (principal); I77.89 Other specified disorders of arteries and arterioles; I48.19 Other persistent atrial fibrillation; R60.9 Edema, unspecified; I10 Essential (primary) hypertension
CPT/HCPCS: 36415; 80048; 93306

== ENCOUNTER → 2022-03-24 14:15 | Outpatient (CLI) | payer MEDICARE, OTHER, SELFPAY ==
[2022-03-24 16:18] LABS: BUN Creatinine Ratio 11.9 (6-22); Blood Urea Nitrogen 23 mg/dL (9-20); Calcium 9.1 mg/dL (8.4-10.2); Carbon Dioxide 29 mmol/L (22-32); Chloride 102 mmol/L (98-107); Estimated Glomerular Filt Rate 34 mL/min (>60); Glucose 112 mg/dL (80-110); HEMOLYSIS < 15 (0-50); Potassium 3.6 mmol/L (3.4-5.1); Sodium 142 mmol/L (137-145)
== END ==
PROVIDERS: PCP Family Medicine; Referring Provider Family Medicine; Visit Provider Family Medicine
DX: R60.9 Edema, unspecified (principal); I10 Essential (primary) hypertension
CPT/HCPCS: 36415; 80048

== ENCOUNTER → 2022-03-30 11:03 | Outpatient (CLI) | payer MEDICARE, OTHER, SELFPAY ==
[2022-03-30 12:25] LABS: Add Manual Diff / Slide Review NO; Basophils Absolute Auto 0 /uL (0-100); Basophils Percent Auto 0.4 % (0-2); Eosinophils Absolute Auto 100 /uL (0-450); Eosinophils Percent Auto 1.4 % (2-4); Hemoglobin 9.9 g/dL (13.5-17.5); Lymphocytes Absolute Auto 1300 /uL (1100-4500); Lymphocytes Percent Auto 25.6 % (25-40); Mean Corpuscular HGB Conc 32.9 % (30-36); Mean Corpuscular Hemoglobin 27.9 PG (26-34); Mean Corpuscular Volume 84.8 fL (80-100); Monocytes Absolute Auto 1200 /uL (0-900); Monocytes Percent Auto 23.1 % (3-14); Neutrophils Absolute Auto 2600 /uL (1500-7000); Neutrophils Percent Auto 49.5 % (50-75); Platelet Count 82 X10^3/uL (150-400); Red Blood Cell Count 3.53 X10^6/uL (4.5-5.9); Red Cell Distribution Width 17.7 % (11.6-14.8); White Blood Cell Count 5.2 X10^3/uL (4.5-11.0)
[2022-03-30 12:34] LABS: Alanine Aminotransferase 54 IU/L (<50); Albumin 4.2 g/dL (3.5-5.0); Albumin Globulin Ratio 1.3 (1.0-2.8); Alkaline Phosphatase 76 U/L (38-126); Aspartate Aminotransferase 61 IU/L (17-59); BUN Creatinine Ratio 14.2 (6-22); Bilirubin Total 0.5 mg/dL (0.2-1.3); Blood Urea Nitrogen 25 mg/dL (9-20); Calcium 8.9 mg/dL (8.4-10.2); Carbon Dioxide 27 mmol/L (22-32); Chloride 104 mmol/L (98-107); Estimated Glomerular Filt Rate 38 mL/min (>60); Globulin 3.3 g/dL (1.7-4.1); Glucose 104 mg/dL (80-110); HEMOLYSIS < 15 (0-50); Magnesium 2.1 mg/dL (1.6-2.3); Sodium 142 mmol/L (137-145); Total Protein 7.5 g/dL (6.3-8.2)
[2022-03-30 13:26] LABS: Thyroid Stimulating Hormone 2.04 uIU/mL (0.47-4.68)
== END ==
PROVIDERS: Specialist; PCP Family Medicine; Referring Provider Physician Assistant Medical; Visit Provider Physician Assistant Medical
DX: I48.19 Other persistent atrial fibrillation (principal); E78.00 Pure hypercholesterolemia, unspecified; R06.02 Shortness of breath
CPT/HCPCS: 36415; 80053; 83735; 84443; 85025

== ENCOUNTER → 2022-04-01 12:42 | Outpatient (CLI) | payer MEDICARE, OTHER, SELFPAY ==
[2022-04-01 13:28] VITALS: BP 134/80; PULSE 74; RESP 18; TEMP 36.8; O2SAT 99
[2022-04-01] MEDS: EPOETIN ALFA-EPBX 10,000 UNIT/ML VIAL 20000 UNIT SUBCUT (13:37)
== END ==
PROVIDERS: PCP Family Medicine; Referring Provider Internal Medicine Medical Oncology; Visit Provider Internal Medicine Medical Oncology
DX: C61 Malignant neoplasm of prostate (principal); C77.5 Secondary and unspecified malignant neoplasm of intrapelvic lymph nodes; N18.9 Chronic kidney disease, unspecified; D63.1 Anemia in chronic kidney disease; Z79.818 Long term (current) use of other agents affecting estrogen receptors and estrogen levels
CPT/HCPCS: 96372; 99214; Q5106

== ENCOUNTER → 2022-05-05 08:00 | Outpatient (CLI) | payer MEDICARE, OTHER, SELFPAY ==
[2022-05-05 10:01] LABS: Vitamin D 25 Hydroxy (D3) 102 ng/mL (30.0-100.0)
== END ==
PROVIDERS: PCP Family Medicine; Referring Provider Urology; Visit Provider Urology
DX: C77.9 Secondary and unspecified malignant neoplasm of lymph node, unspecified (principal); C61 Malignant neoplasm of prostate; M85.851 Other specified disorders of bone density and structure, right thigh; R39.9 Unspecified symptoms and signs involving the genitourinary system; Z79.818 Long term (current) use of other agents affecting estrogen receptors and estrogen levels; Z87.448 Personal history of other diseases of urinary system
CPT/HCPCS: 36415; 82306; 84153; 96402; 99214; J9217

== ENCOUNTER → 2022-05-13 10:11 | Outpatient (CLI) | payer MEDICARE, OTHER, SELFPAY ==
[2022-05-13 10:25] VITALS: BP 134/76; PULSE 79; RESP 18; TEMP 37.4; O2SAT 98
--- NOTE | 2022-05-13 10:56 | PC.NURSE ---
EPO INJECTIONS Pt presents to clinic today for epo injection. Hemoglobin was 9.4 on 05/09/22. Pt did not have any labs drawn or receive any injections last month while on vacation in [place]. Pt's last dose of epo was on 04/01/22. Pharmacy discussed dosing with Dr. Gresham today and stated that Pt will transition to a once per month dosing schedule. Pt notified and agreeable to plan. This RN instructed Pt to get labs drawn the day of or day prior to injection. Educated Pt on the importance of adherence to treatment plan. Pt voiced understanding.
[2022-05-13] MEDS: EPOETIN ALFA 20,000 UNIT/ML VIAL 20000 UNIT SUBCUT (11:16)
== END ==
PROVIDERS: PCP Family Medicine; Referring Provider Family Medicine; Visit Provider Internal Medicine Medical Oncology
DX: N18.9 Chronic kidney disease, unspecified (principal); D63.1 Anemia in chronic kidney disease
CPT/HCPCS: 96372; J0885

== ENCOUNTER 2022-05-19 10:40 | Day surgery (SDC) | payer MEDICARE, OTHER, SELFPAY ==
--- NOTE | 2022-05-19 | PATH_ITS ---
[place] Accession Number: [id number] No. of containers..01 Tissue . 01 Material submitted: . gastrointestinal site - GASTRIC BIOPSY . 01 Diagnosis: Stomach, Biopsy: Body-type mucosa with mild chronic gastritis. Negative for Helicobacter by immunohistochemistry. Negative for intestinal metaplasia. Negative for dysplasia and malignancy. MRV 05/26/2022 1601 Local . 01 Electronically signed: . Kassy Roman MD, Pathologist NPI- [id number] . 01 Gross description: . GASTRIC BIOPSY: Received in formalin are 2 fragment(s) of mirza, soft tissue measuring 0.4 x 0.1 x 0.1 cm to 0.2 x 0.2 x 0.2 cm submitted entirely in 1 cassette(s) /CPE 05/21/2022 0726 Local . 01 Microscopic: . An immunohistochemical stain was performed to evaluate for Helicobacter organisms and is negative. The control stain showed appropriate reactivity. . * This test was developed and its performance characteristics determined by [facility]. It has not been cleared or approved by the U.S. Food and Drug Administration. The FDA has determined that such clearance or approval is not necessary. This test is used for clinical purposes. It should not be regarded as investigational or for research. . 01 Pathologist provided ICD-10: R63.0 . 01 CPT . 453880, L72821 Specimen Comment: A courtesy copy of this report has been sent to [phone] Performed at: 01 [facility] [address] [place] [address], [place], [place] [id number] MD Williams Delgado MD Phone: [phone]
[2022-05-19] MEDS: LACTATED RINGERS 1,000 ML 200 ML IV (11:00)
--- NOTE | 2022-05-19 11:08 | PM.PREOP ---
Pre-operative Note Interval Note History & Physical reviewed/Exam performed by Physician: Yes Changes to H&P: No
[2022-05-19 11:24] VITALS: BP 156/83; PULSE 86; RESP 16; TEMP 36.4; O2SAT 99; BMI 28.0
--- NOTE | 2022-05-19 12:40 | P.OP.EGD_ITS ---
Operative Date/Time/Diagnoses Date of procedure: 05/19/22 Time of procedure: 12:40 Pre-op diagnosis: Anorexia Post-op diagnosis: same Procedure & Clinicians Study performed: Esophagoduodenoscopy Same procedure as scheduled: Yes Indications: 82-year-old man with new onset early satiety here for EGD Surgeon: Clyde Nieves Procedure Notes Procedure in detail: The history and physical was performed/updated and the patient is ASA class is 2. The procedure was discussed in detail with the patient. Potential risks complications including infection, bleeding, missed diagnosis, perforation, need for surgery, and were explained. Their questions were answered and informed consent was obtained. Patient placed in left lateral decubitus position. Time out was performed. Procedural sedation was administered by Anesthesia. A bite block was placed. the scope was inserted into the mouth and advanced through the esophagus and into the stomach. The stomach was without masses, ulcers or gastritis. Biopsy of the stomach was performed with forceps. The pylorus was intubated and the duodenum was normal to the 2nd portion. The scope was retroflexed within the stomach and there was no hiatal hernia. The scope was withdrawn into the es ophagus the Z line was seen at 35 cm from the incisions. There was no Griffith's esophagitis, esophageal masses or strictures. Stomach was desufflated and scope removed. The patient tolerated the procedure well and will be discharged when they meet criteria. Specimen(s): other (Gastric) Impression: Normal esophagoduodenoscopy Post-procedure Plan for aftercare: Will notify with pathology findings Disposition: same day surgery
[2022-05-19 12:42] VITALS: BP 132/78; PULSE 83; RESP 15; O2SAT 93
[2022-05-19 12:48] VITALS: BP 136/74; PULSE 78; RESP 18; O2SAT 20
[2022-05-19 12:56] VITALS: BP 144/79; PULSE 82; RESP 15; TEMP 36.6; O2SAT 94
[2022-05-19 12:59] VITALS: BP 145/78; PULSE 78; RESP 15; TEMP 36.5; O2SAT 95
== END 2022-05-19 13:15 | disposition home or self-care (01) ==
PROVIDERS: PCP Family Medicine; Referring Provider Surgery; Visit Provider Surgery
PROC: 0DJ08ZZ Inspection of Upper Intestinal Tract, Via Natural or Artificial Opening Endoscopic (ICD-10-PCS; CPT 43235; principal; 2022-05-19 11:45)
DX: R63.0 Anorexia (principal); Z85.46 Personal history of malignant neoplasm of prostate; N05.9 Unspecified nephritic syndrome with unspecified morphologic changes; D70.9 Neutropenia, unspecified; D63.1 Anemia in chronic kidney disease; E78.00 Pure hypercholesterolemia, unspecified; R06.02 Shortness of breath; I48.19 Other persistent atrial fibrillation; E83.30 Disorder of phosphorus metabolism, unspecified; N25.81 Secondary hyperparathyroidism of renal origin
CPT/HCPCS: 43235; 36415; 80053; 83735; 83970; 84100; 84443; 85025; J2704

== ENCOUNTER → 2022-05-19 13:21 | Outpatient (CLI) | payer MEDICARE, OTHER, SELFPAY ==
[2022-05-19 13:51] LABS: Add Manual Diff / Slide Review NO; Basophils Absolute Auto 0 /uL (0-100); Basophils Percent Auto 0.4 % (0-2); Eosinophils Absolute Auto 0 /uL (0-450); Eosinophils Percent Auto 0.9 % (2-4); Hematocrit 29.9 % (41-53); Hemoglobin 9.8 g/dL (13.5-17.5); Lymphocytes Absolute Auto 1000 /uL (1100-4500); Lymphocytes Percent Auto 18.3 % (25-40); Mean Corpuscular HGB Conc 32.7 % (30-36); Mean Corpuscular Volume 88.7 fL (80-100); Monocytes Absolute Auto 1200 /uL (0-900); Monocytes Percent Auto 23.2 % (3-14); Neutrophils Absolute Auto 3000 /uL (1500-7000); Neutrophils Percent Auto 57.2 % (50-75); Platelet Count 118 X10^3/uL (150-400); Red Blood Cell Count 3.37 X10^6/uL (4.5-5.9); Red Cell Distribution Width 19.1 % (11.6-14.8); White Blood Cell Count 5.2 X10^3/uL (4.5-11.0)
[2022-05-19 14:22] LABS: Alanine Aminotransferase 48 IU/L (<50); Albumin Globulin Ratio 1.4 (1.0-2.8); Alkaline Phosphatase 73 U/L (38-126); Aspartate Aminotransferase 54 IU/L (17-59); BUN Creatinine Ratio 11.1 (6-22); Bilirubin Total 0.8 mg/dL (0.2-1.3); Blood Urea Nitrogen 19 mg/dL (9-20); Calcium 8.8 mg/dL (8.4-10.2); Carbon Dioxide 28 mmol/L (22-32); Chloride 104 mmol/L (98-107); Estimated Glomerular Filt Rate 39 mL/min (>60); Globulin 2.9 g/dL (1.7-4.1); Glucose 96 mg/dL (80-110); HEMOLYSIS < 15 (0-50); Magnesium 2.1 mg/dL (1.6-2.3); Phosphorous 4.6 mg/dL (2.3-3.7); Sodium 140 mmol/L (137-145); Total Protein 6.9 g/dL (6.3-8.2)
[2022-05-19 14:51] LABS: Thyroid Stimulating Hormone 2.53 uIU/mL (0.47-4.68)
[2022-05-21 09:14] LABS: Parathyroid Hormone Int 68 pg/mL (15-65)
== END ==
PROVIDERS: PCP Family Medicine; Referring Provider Internal Medicine Nephrology; Visit Provider Internal Medicine Nephrology
DX: N05.9 Unspecified nephritic syndrome with unspecified morphologic changes (principal); N25.81 Secondary hyperparathyroidism of renal origin; E78.00 Pure hypercholesterolemia, unspecified; D70.9 Neutropenia, unspecified; D63.1 Anemia in chronic kidney disease; E83.30 Disorder of phosphorus metabolism, unspecified; R06.02 Shortness of breath; I48.19 Other persistent atrial fibrillation
CPT/HCPCS: 36415; 80053; 83735; 83970; 84100; 84443; 85025

== ENCOUNTER → 2022-05-27 10:20 | Outpatient (CLI) | payer MEDICARE, OTHER, SELFPAY ==
[2022-05-27 10:41] VITALS: BP 146/88; PULSE 95; RESP 18; TEMP 37.1; O2SAT 94
--- NOTE | 2022-05-27 11:32 | PC.NURSE ---
pt showed up to clinic for epoetin inj appt. This RN spoke to Dr. Gresham. His last note stated to con't epo q2 weeks. Orders panel changed from 06/12/22 appt to q2 weeks starting today. Per [facility], it was decide earlier this month, pt was to go to injections monthly. This discussed with Dr. Gresham. Pt changed back to monthly injections and order panel changed to monthly injections. pt informed and verbalized understanding. He states, I still feel very exhausted with Hgb 9.6. I'll talk to Dr. Gresham about changing it to q2 weeks at my next appt with him.
== END ==
PROVIDERS: PCP Family Medicine; Referring Provider Family Medicine; Visit Provider Internal Medicine Medical Oncology
DX: C61 Malignant neoplasm of prostate (principal); C77.5 Secondary and unspecified malignant neoplasm of intrapelvic lymph nodes; N18.9 Chronic kidney disease, unspecified; D63.1 Anemia in chronic kidney disease

== ENCOUNTER → 2022-06-10 10:17 | Outpatient (CLI) | payer MEDICARE, OTHER, SELFPAY ==
[2022-06-10 10:49] VITALS: BP 156/80; PULSE 79; RESP 18; TEMP 36.6; O2SAT 100
[2022-06-10] MEDS: EPOETIN ALFA-EPBX 10,000 UNIT/ML VIAL 20000 UNIT SUBCUT (11:00)
== END ==
PROVIDERS: PCP Family Medicine; Referring Provider Family Medicine; Visit Provider Internal Medicine Medical Oncology
DX: C61 Malignant neoplasm of prostate (principal); C77.5 Secondary and unspecified malignant neoplasm of intrapelvic lymph nodes; N18.9 Chronic kidney disease, unspecified; D63.1 Anemia in chronic kidney disease
CPT/HCPCS: 96372; Q5106

== ENCOUNTER → 2022-06-15 11:39 | Outpatient (CLI) | payer MEDICARE, OTHER, SELFPAY ==
[2022-06-15 12:35] LABS: BUN Creatinine Ratio 11.2 (6-22); Blood Urea Nitrogen 19 mg/dL (9-20); Calcium 9.1 mg/dL (8.4-10.2); Carbon Dioxide 32 mmol/L (22-32); Chloride 100 mmol/L (98-107); Estimated Glomerular Filt Rate 40 mL/min (>60); Glucose 91 mg/dL (80-110); HEMOLYSIS < 15 (0-50); Magnesium 2.4 mg/dL (1.6-2.3); Potassium 3.8 mmol/L (3.4-5.1); Sodium 141 mmol/L (137-145)
== END ==
PROVIDERS: PCP Family Medicine; Referring Provider Specialist; Visit Provider Specialist
DX: N18.31 Chronic kidney disease, stage 3a (principal)
CPT/HCPCS: 36415; 80048; 83735

== ENCOUNTER → 2022-07-23 11:36 | Outpatient (CLI) | payer MEDICARE, OTHER, SELFPAY ==
[2022-07-23 13:30] LABS: Prostate Specific Antigen 0.136 ng/mL (0.10-4.00)
== END ==
PROVIDERS: PCP Family Medicine; Referring Provider Urology; Visit Provider Urology
DX: R97.20 Elevated prostate specific antigen [PSA] (principal)
CPT/HCPCS: 36415; 84153

== ENCOUNTER → 2022-07-27 17:01 | Outpatient (CLI) | payer MEDICARE, OTHER, SELFPAY ==
[2022-07-27 17:43] LABS: Add Manual Diff / Slide Review NO; Basophils Absolute Auto 0 /uL (0-100); Basophils Percent Auto 0.6 % (0-2); Eosinophils Absolute Auto 100 /uL (0-450); Eosinophils Percent Auto 1.4 % (2-4); Hemoglobin 8.7 g/dL (13.5-17.5); Lymphocytes Absolute Auto 900 /uL (1100-4500); Lymphocytes Percent Auto 17.1 % (25-40); Mean Corpuscular HGB Conc 33.5 % (30-36); Mean Corpuscular Hemoglobin 29.3 PG (26-34); Mean Corpuscular Volume 87.5 fL (80-100); Monocytes Absolute Auto 1100 /uL (0-900); Neutrophils Absolute Auto 2900 /uL (1500-7000); Neutrophils Percent Auto 58.9 % (50-75); Platelet Count 122 X10^3/uL (150-400); Red Blood Cell Count 2.97 X10^6/uL (4.5-5.9); Red Cell Distribution Width 17.1 % (11.6-14.8)
[2022-07-27 18:08] LABS: Alanine Aminotransferase 96 IU/L (<50); Albumin 3.9 g/dL (3.5-5.0); Albumin Globulin Ratio 1.1 (1.0-2.8); Alkaline Phosphatase 109 U/L (38-126); Aspartate Aminotransferase 114 IU/L (17-59); BUN Creatinine Ratio 13.8 (6-22); Bilirubin Total 0.6 mg/dL (0.2-1.3); Blood Urea Nitrogen 22 mg/dL (9-20); Calcium 8.6 mg/dL (8.4-10.2); Carbon Dioxide 30 mmol/L (22-32); Chloride 103 mmol/L (98-107); Estimated Glomerular Filt Rate 43 mL/min (>60); Globulin 3.5 g/dL (1.7-4.1); Glucose 105 mg/dL (80-110); HEMOLYSIS < 15 (0-50); Potassium 3.4 mmol/L (3.4-5.1); Sodium 140 mmol/L (137-145); Total Protein 7.4 g/dL (6.3-8.2)
[2022-07-27 18:42] LABS: Ferritin 212 ng/mL (18-464)
[2022-07-27 18:58] LABS: Magnesium 2.2 mg/dL (1.6-2.3)
[2022-07-27 20:12] LABS: HEMOLYSIS < 15 (0-50)
[2022-07-27 20:23] LABS: Total Iron Binding Capacity 322 ug/dL (261-462)
[2022-07-27 20:25] LABS: Iron 42 ug/dL (49-181); Percent Iron Saturation 13 % (20-50)
[2022-07-27 20:32] LABS: Transferrin 220 mg/dL (206-381)
[2022-07-30 10:37] LABS: Cholesterol, Total 107 mg/dL (100-199); HDL-Cholesterol 47 mg/dL (>39); HDL-Particle (Total) 25.3 umol/L (>=30.5); Historical Reading Comment: (.); LDL Particle 973 nmol/L (<1000); LDL Size 20.1 nm (>20.5); LDL-Cholsterol 44 mg/dL (0-99); LP-IR Score <25 (<=45); Small LDL- Particle 602 nmol/L (<=527); Triglycerides 78 mg/dL (0-149)
== END ==
PROVIDERS: Internal Medicine Hematology & Oncology; PCP Family Medicine; Referring Provider Specialist; Visit Provider Specialist
DX: N18.9 Chronic kidney disease, unspecified; E78.00 Pure hypercholesterolemia, unspecified; I48.19 Other persistent atrial fibrillation; D63.1 Anemia in chronic kidney disease
CPT/HCPCS: 36415; 80053; 80061; 82728; 83540; 83550; 83704; 83735; 85025

== ENCOUNTER → 2022-08-25 08:26 | Outpatient (CLI) | payer MEDICARE, OTHER, SELFPAY ==
[2022-08-25 09:15] LABS: Hematocrit 27.2 % (41-53); Hemoglobin 9.1 g/dL (13.5-17.5); Mean Corpuscular HGB Conc 33.5 % (30-36); Mean Corpuscular Hemoglobin 29.9 PG (26-34); Mean Corpuscular Volume 89.2 fL (80-100); Platelet Count 106 X10^3/uL (150-400); Red Blood Cell Count 3.05 X10^6/uL (4.5-5.9); Red Cell Distribution Width 18.7 % (11.6-14.8)
[2022-08-25 09:28] LABS: Add Manual Diff / Slide Review YES
[2022-08-25 09:47] LABS: Alanine Aminotransferase 81 IU/L (<50); Albumin 3.6 g/dL (3.5-5.0); Albumin Globulin Ratio 1.2 (1.0-2.8); Alkaline Phosphatase 120 U/L (38-126); Aspartate Aminotransferase 80 IU/L (17-59); BUN Creatinine Ratio 11.8 (6-22); Bilirubin Total 1.1 mg/dL (0.2-1.3); Blood Urea Nitrogen 19 mg/dL (9-20); Calcium 8.7 mg/dL (8.4-10.2); Carbon Dioxide 25 mmol/L (22-32); Chloride 103 mmol/L (98-107); Estimated Glomerular Filt Rate 42 mL/min (>60); Glucose 97 mg/dL (80-110); HEMOLYSIS < 15 (0-50); Magnesium 2.2 mg/dL (1.6-2.3); Potassium 4.1 mmol/L (3.4-5.1); Sodium 138 mmol/L (137-145); Total Protein 6.6 g/dL (6.3-8.2)
[2022-08-25 09:50] LABS: NT-proBNP (BNP-Adult 18+) 16400 pg/mL (<450)
[2022-08-25 09:58] LABS: Neutrophils Absolute Manual 4020 /uL (3000-5900); Total Cells Counted 100
[2022-08-25 09:59] LABS: Anisocytosis 1+
[2022-08-25 10:12] LABS: Thyroid Stimulating Hormone 2.22 uIU/mL (0.47-4.68)
[2022-08-27 09:23] LABS: Cholesterol, Total 114 mg/dL (100-199); HDL-Cholesterol 46 mg/dL (>39); HDL-Particle (Total) 19.4 umol/L (>=30.5); LDL Particle 748 nmol/L (<1000); LDL Size 21.2 nm (>20.5); LDL-Cholsterol 53 mg/dL (0-99); LP-IR Score <25 (<=45); Small LDL- Particle <90 nmol/L (<=527); Triglycerides 73 mg/dL (0-149)
== END ==
PROVIDERS: Specialist; PCP Family Medicine; Referring Provider Internal Medicine Cardiovascular Disease; Visit Provider Internal Medicine Cardiovascular Disease
DX: I48.19 Other persistent atrial fibrillation (principal); I50.32 Chronic diastolic (congestive) heart failure; E78.00 Pure hypercholesterolemia, unspecified; N18.31 Chronic kidney disease, stage 3a; I25.5 Ischemic cardiomyopathy; R79.89 Other specified abnormal findings of blood chemistry
CPT/HCPCS: 36415; 80053; 80061; 83704; 83735; 83880; 84443; 85007; 85025

== ENCOUNTER → 2022-08-27 13:47 | Outpatient (CLI) | payer MEDICARE, OTHER, SELFPAY | PROVIDERS: PCP Family Medicine; Referring Provider Internal Medicine Hematology & Oncology; Visit Provider Internal Medicine Hematology & Oncology | DX: C61 Malignant neoplasm of prostate (principal); C77.5 Secondary and unspecified malignant neoplasm of intrapelvic lymph nodes; I12.9 Hypertensive chronic kidney disease with stage 1 through stage 4 chronic kidney disease, or unspecified chronic kidney disease; N18.9 Chronic kidney disease, unspecified; D63.1 Anemia in chronic kidney disease ==

== ENCOUNTER 2022-09-12 13:18 | Observation (INO) | payer MEDICARE, OTHER, SELFPAY ==
[2022-09-12] VITALS (11 sets, daily range): BP systolic 145–183; BP diastolic 72–86; PULSE 72–86; RESP 17–23; TEMP 35.7–36.5; O2SAT 94–98; BMI 27.2
--- NOTE | 2022-09-12 13:32 | DI.RAD.S_ITS ---
PROCEDURE: XR CHEST 1V INDICATIONS: Possible stroke TECHNIQUE: One view of the chest was acquired. COMPARISON: [facility], CR, XR CHEST 2V, 12/15/2021, 17:47. FINDINGS: Surgical changes and devices: None. Lungs and pleura: Bibasilar infiltrates consistent with atelectasis, worse on the right. No pleural effusions or pneumothorax. Mediastinum: Mediastinal contours appear normal. Heart size is normal. Bones and chest wall: No suspicious bony lesions. Overlying soft tissues appear unremarkable. IMPRESSION: Bibasilar infiltrates consistent with atelectasis, worse on the right. Dictated by: Nahum Pearson M.D. on 09/12/2022 at 14:25 Approved by: Nahum Pearson M.D. on 09/12/2022 at 14:26
--- NOTE | 2022-09-12 13:32 | DI.CT.S_ITS ---
PROCEDURE: CT STROKE INDICATIONS: Positive BE-FAST, Stroke symptoms TECHNIQUE: Noncontrast 4.5 mm thick angled axial sections acquired from the foramen magnum to the vertex, with coronal reformats. For radiation dose reduction, the following was used: automated exposure control, adjustment of mA and/or kV according to patient size. COMPARISON: None. FINDINGS: Image quality: Excellent. CSF spaces: Basal cisterns are patent. No extra-axial fluid collections. The ventricles are symmetric in size and shape. Brain: No intracranial bleeds or masses. There is cerebral volume loss for age, with resultant ventricular and sulcal prominence. There are periventricular and deep white matter chronic small vessel ischemic changes. There is intracranial internal carotid artery atherosclerosis. Skull and face: Calvarium and visualized facial bones appear intact, without suspicious lesions. Sinuses: Visualized sinuses and mastoids are clear. IMPRESSION: 1. No acute intracranial abnormality. 2. Cerebral volume loss and small vessel ischemic changes. Findings were discussed with the emergency department at Dr. Coto. This study fulfills neurological imaging criteria for inclusion or exclusion of acute stroke therapies based on available published neurological guidelines. Dictated by: Nahum Pearson M.D. on 09/12/2022 at 12:47 Approved by: Nahum Pearson M.D. on 09/12/2022 at 12:50
--- NOTE | 2022-09-12 13:41 | DI.CT.S_ITS ---
PROCEDURE: CT ANGIO HEAD AND NECK INDICATIONS: slurred speech TECHNIQUE: After the administration of intravenous contrast, 1 mm thick sections acquired from the aortic arch through the [place]. Post-contrast 4.5 mm thick sections then re-acquired from the foramen magnum to the vertex. 3-dimensional xhxrqhh-kbgcospei-wuejhttivr (MIP) and/or volume rendering reformats were acquired of the central intracranial vasculature and neck separately. For radiation dose reduction, the following was used: automated exposure control, adjustment of mA and/or kV according to patient size. COMPARISON: None. FINDINGS: Image quality: Excellent. BRAIN: CSF spaces: Ventricles are normal in size and shape. Basal cisterns are patent. No extra-axial fluid collections. Brain: No midline shift. No intracranial bleeds or masses. Steiner-white matter interface appears intact. Subcortical and periventricular white matter hypodensities are consistent with small vessel ischemic disease. Skull and face: Calvarium and facial bones appear intact, without suspicious lesions. Orbits appear normal. Sinuses: Sinuses and mastoids are clear. HEAD CT ANGIOGRAPHY: Anterior circulation: Intracranial internal carotid arteries have atherosclerotic calcifications but are normal in size and flow. The flow within the paired anterior cerebral arteries is normal and symmetric. The flow within the middle cerebral arteries is normal and symmetric. The anterior communicating artery is seen. No aneurysms are seen. Posterior circulation: Visualized portions of the vertebral arteries demonstrate normal caliber, and join to form a normal appearing basilar artery. Flow within the posterior cerebral arteries is normal and symmetric. No aneurysms are seen. NECK CT ANGIOGRAPHY: Carotid system: The great vessels demonstrate a conventional anatomy as they arise from the aortic arch. The origins of the common carotid arteries appear patent. The common carotid arteries demonstrate atherosclerotic calcifications bilaterally with no significant stenosis. The bifurcation regions are both widely patent. The internal carotid arteries demonstrate normal calibers and courses. Posterior circulation: The origins of the vertebral arteries both appear widely patent. The more superior extracranial portions of both vertebral arteries also demonstrate normal courses and calibers. They join to form a normal appearing basilar artery. Soft tissues: Visualized neck soft tissues demonstrate no suspicious abnormalities. Bones: No suspicious bony lesions. Visualized cervical spine appears normally aligned. IMPRESSION: 1. Atherosclerotic disease with no significant stenosis. 2. No large vessel occlusion, dissection, or aneurysm. Any quantitative measurements of stenosis were performed using NASCET criteria. Dictated by: Nahum Pearson M.D. on 09/12/2022 at 14:28 Approved by: Nahum Pearson M.D. on 09/12/2022 at 14:32
[2022-09-12 14:24] LABS: Add Manual Diff / Slide Review NO; Basophils Absolute Auto 0 /uL (0-100); Eosinophils Absolute Auto 0 /uL (0-450); Hematocrit 28.9 % (41-53); Hemoglobin 9.7 g/dL (13.5-17.5); Lymphocytes Absolute Auto 900 /uL (1100-4500); Lymphocytes Percent Auto 18.3 % (25-40); Mean Corpuscular HGB Conc 33.5 % (30-36); Mean Corpuscular Volume 92.7 fL (80-100); Monocytes Absolute Auto 1200 /uL (0-900); Monocytes Percent Auto 24.6 % (3-14); Neutrophils Absolute Auto 2700 /uL (1500-7000); Neutrophils Percent Auto 57.1 % (50-75); Platelet Count 104 X10^3/uL (150-400); Red Blood Cell Count 3.12 X10^6/uL (4.5-5.9); White Blood Cell Count 4.7 X10^3/uL (4.5-11.0)
[2022-09-12 14:34] LABS: Alanine Aminotransferase 36 IU/L (<50); Albumin Globulin Ratio 1.2 (1.0-2.8); Alkaline Phosphatase 103 U/L (38-126); Aspartate Aminotransferase 47 IU/L (17-59); BUN Creatinine Ratio 14.2 (6-22); Bilirubin Total 2.1 mg/dL (0.2-1.3); Blood Urea Nitrogen 34 mg/dL (9-20); Carbon Dioxide 22 mmol/L (22-32); Chloride 105 mmol/L (98-107); Creatine Kinase 86 U/L (55-170); Estimated Glomerular Filt Rate 26 mL/min (>60); Globulin 3.4 g/dL (1.7-4.1); Glucose 105 mg/dL (80-110); HEMOLYSIS < 15 (0-50); Magnesium 2.3 mg/dL (1.6-2.3); Potassium 4.2 mmol/L (3.4-5.1); Sodium 139 mmol/L (137-145); Total Protein 7.4 g/dL (6.3-8.2)
--- NOTE | 2022-09-12 14:35 | ED.NEUROSD ---
HPI - Neuro Symptoms/Deficit General Chief Complaint: Neuro Symptoms/Deficit Stated Complaint: Afib, slurred speech, no energy, mind drifting Time Seen by Provider: 09/12/22 13:41 History of Present Illness HPI Narrative: Patient 82-year-old male history CKD, hypertension, CAD with stents, hyperlipidemia, atrial fibrillation on Pradaxa previously on warfarin, and Xarelto presents today with slurring of speech starting around 10:00 a.m.. He was on a boat with his grandson and when they noted he was talking gibberish. He was having some slurring of speech. Patient does not remember any of it. Symptoms completely resolved by the time he arrived in the ED. No numbness tingling or weakness. no Prior history of CVA. On Anticoagulants: Yes (pradaxa) Related Data Home Medications Medication Instructions Recorded Confirmed ezetimibe 10 mg tablet 10 mg PO DAILY 05/20/21 09/12/22 ferrous sulfate 324 mg (65 mg 324 mg PO BID 02/10/22 09/12/22 iron) tablet,delayed release hydralazine 100 mg tablet 100 mg PO TID 05/19/22 09/12/22 metoprolol succinate 25 mg 25 mg PO DAILY 05/19/22 09/12/22 tablet,extended release 24 hr amiodarone 200 mg tablet 200 mg PO DAILY 09/12/22 09/12/22 dabigatran etexilate 150 mg 150 mg PO BID 09/12/22 09/12/22 capsule (Pradaxa) lisinopril 20 mg tablet 20 mg PO DAILY 09/12/22 09/12/22 oxybutynin chloride 5 mg tablet 5 mg TID PRN Incontinence 09/12/22 09/12/22 potassium chloride 20 mEq 20 meq PO DAILY 09/12/22 09/12/22 tablet,extended release rosuvastatin 40 mg tablet 40 mg PO DAILY 09/12/22 09/12/22 torsemide 10 mg tablet 15 mg PO DAILY 09/12/22 09/12/22 Allergies Allergy/AdvReac Type Severity Reaction Status Date / Time No Known Drug Allergies Allergy Verified 08/06/22 10:22 Review of Systems Review of Systems ROS Unobtainable: All systems reviewed & are unremarkable except as noted in HPI and below Hematologic/Lymphatic On Anticoagulants: Yes (pradaxa) Patient History Medical History Androgen deprivation therapy Bilateral lower extremity edema Chronic renal failure, stage 3a Coronary artery disease Elevated PSA Essential hypertension History of anemia History of BPH History of deviated nasal septum History of dyspnea History of hypertension Hx of fatigue Hx of hyperlipidemia Hx of sleep apnea Iron deficiency anemia Ischemic cardiomyopathy LAFB (left anterior fascicular block) Long-term use of high-risk medication Lower urinary tract symptoms 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 Mitral regurgitation Mixed hyperlipidemia Myocardial infarct Nocturia associated with benign prostatic hyperplasia Osteopenia Persistent atrial fibrillation RBBB Renal artery aneurysm Sleep apnea Toe injury Surgical History Hx of neck surgery S/P coronary artery stent placement Social History marital status: household members: spouse occupational status: employed Smoking Status: Never smoker alcohol intake: current substance use type: does not use caffeine: Yes Type(s) of exercise: walking frequency: 1-2 times per week duration: < 15 minutes/day Smoking Status: Never smoker alcohol intake frequency: holidays/special occasions only Substance Use Type: does not use Exam Initial Vital Signs Initial Vital Signs: Vital Signs Temperature 97.7 F 09/12/22 13:22 Pulse Rate 86 09/12/22 13:22 Respiratory Rate 18 09/12/22 13:22 Blood Pressure 156/82 H 09/12/22 13:22 Pulse Oximetry 98 09/12/22 13:22 Oxygen Delivery Method Room Air 09/12/22 13:22 GENERAL: Alert slightly cantankerous 82-year-old male HEENT: Head atraumatic,EOMI, pupils reactive, face symmetric, moist mucous membranes CARDIOVASCULAR: Regular rate and rhythm without murmurs, rubs or gallops. RESPIRATORY: Breath sounds equal bilaterally, no wheezes rales or rhonchi. ABDOMEN: Soft, nontender. Normoactive bowel sounds all 4 quadrants. No guarding or rebound. EXTREMITIES: Normal range of motion, no clubbing or edema. Neurovascularly intact NEUROLOGICAL: Alert and oriented x4.Normal gait and speech. Cranial nerves II through XII grossly intact. Good [id number], good [id number], strength equal bilaterally, no dysarthria or aphasia, sensation in tact to soft touch bilaterally, no visual changes, no facial droop SKIN: Warm, dry, no laceration, no petechiae, no rashes or lesions. Scores NIH Stroke Scale Level of Conciousness: Alert, keenly responsive Ask month/age: Answers both questions correctly. Open/close eyes, close hand: Performs both tasks correctly Best gaze horizontal: Normal Visual lara: No visual loss Facial palsy: Normal symetrical movement Left arm drift: No drift for full 10 sec Right arm drift: No drift for full 10 sec Left leg drift: No drift for full 5 sec Right leg drift: No drift for full 5 sec Limb ataxia: Absent Sensory on face/arms/legs: Normal, no sensory loss Best language: No aphasia, normal Dysarthria: Normal Extinction or inattention: No abnormality Total NIH Stroke scale score: 0 Course Orders Ordered: ED Orders 09/12/22 13:32 CT Stroke Stat XR chest 1V Stat 09/12/22 13:36 EKG-12 Lead Stat 09/12/22 13:41 CT angio head and neck Stat 09/12/22 14:10 BNP [NT-proBNP (BNP-Adult 18+)] Stat Complete Blood Count AUTO DIFF Stat Comprehensive Metabolic Panel Stat ETOH [Ethanol (ETOH)] Stat Magnesium Stat PTT Partial Thromboplastin Julien Stat Prothrombin Time INR Stat Troponin & CK Cardiac Panel Stat 09/12/22 14:27 Urine Drug Screen, Rapid Stat Acetaminophen (Acetaminophen 325 Mg Tablet) 650 mg PO Q6H PRN PRN Reason: Fever/Mild Pain (1-3) Amiodarone HCl (Amiodarone 200 Mg Tablet) 200 mg PO DAILY [facility] Ezetimibe (Ezetimibe 10 Mg Tablet) 10 mg PO DAILY [facility] Hydralazine HCl (Hydralazine 25 Mg Tablet) 100 mg PO TID [facility] Sodium Chloride (Normal Saline 0.9%) 1,000 mls @ 100 mls/hr IV CONT [facility] Lisinopril (Lisinopril 20 Mg Tablet) 20 mg PO DAILY [facility] Metoprolol Succinate (Metoprolol Er 25 Mg Tablet) 25 mg PO DAILY [facility] Naloxone HCl (Naloxone 0.4 Mg/Ml Vial) 0.2 mg IV Q2MIN PRN PRN Reason: Opiate Reversal Non-Formulary Medication (Ferrous Sulfate) 324 mg PO BID [facility] Non-Formulary Medication (Rosuvastatin) 40 mg PO DAILY [facility] Ondansetron HCl (Ondansetron 4 Mg/2 Ml Inj) 4 mg IV Q8HR PRN PRN Reason: Nausea And Vomiting Phytonadione (Phytonadione (Vit K1) 5 Mg Tablet) 10 mg PO NOW ONE Stop: 09/12/22 17:06 Torsemide (Torsemide 10 Mg Tablet) 15 mg PO DAILY [facility] Discontinued Medications Ondansetron HCl (Ondansetron 4 Mg/2 Ml Inj) 4 mg IV NOW PRN PRN Reason: Nausea And Vomiting Ondansetron HCl (Ondansetron 4 Mg Odt) 4 mg SL NOW PRN PRN Reason: Nausea And Vomiting Vital Signs Vital signs: Vital Signs - 8 hr 09/12/22 13:22 09/12/22 15:43 09/12/22 15:37 Temperature 97.7 F Pulse Rate 86 72 81 Respiratory Rate 18 18 22 Blood Pressure 156/82 H 171/85 H Pulse Oximetry 98 97 94 Oxygen Delivery Method Room Air Room Air 09/12/22 15:47 09/12/22 15:47 09/12/22 16:00 Temperature Pulse Rate 74 Respiratory Rate 23 Blood Pressure 179/83 H 163/86 H Pulse Oximetry 96 Oxygen Delivery Method 09/12/22 16:00 Temperature Pulse Rate 78 Respiratory Rate 23 Blood Pressure Pulse Oximetry 95 Oxygen Delivery Method MDM - Neuro Symptoms/Deficit Lab Data 09/12/22 14:10 09/12/22 14:10 Labs: Lab Results 09/12/22 09/12/22 09/12/22 Range/Units 14:10 14:10 14:10 WBC 4.7 (4.5-11.0) X10^3/uL RBC 3.12 L (4.5-5.9) X10^6/uL Hgb 9.7 L (13.5-17.5) g/dL Hct 28.9 L (41-53) % MCV 92.7 (80-100) fL MCH 31.0 (26-34) PG MCHC 33.5 (30-36) % RDW 20.0 H (11.6-14.8) % Plt Count 104 L (150-400) X10^3/uL Neut % (Auto) 57.1 (50-75) % Lymph % (Auto) 18.3 L (25-40) % [place] % (Auto) 24.6 H (3-14) % Eos % (Auto) 0.0 L (2-4) % Baso % (Auto) 0.0 (0-2) % Neut # (Auto) 2700 (7349-7653) /uL Lymph # (Auto) 900 L (5035-6453) /uL [place] # (Auto) 1200 H (0-900) /uL Eos # (Auto) 0 (0-450) /uL Baso # (Auto) 0 (0-100) /uL PT 53.9 H (10.1-12.7) SECONDS INR 4.6 H* (0.9-1.3) APTT 116 H* (26-36) SECONDS Sodium 139 (137-145) mmol/L Potassium 4.2 (3.4-5.1) mmol/L Chloride 105 (98-107) mmol/L Carbon Dioxide 22 (22-32) mmol/L BUN 34 H (9-20) mg/dL Creatinine 2.39 H (0.66-1.25) mg/dL Estimated GFR 26 L (>60) mL/min BUN/Creatinine Ratio 14.2 (6-22) Glucose 105 (80-110) mg/dL Calcium 9.0 (8.4-10.2) mg/dL Magnesium 2.3 (1.6-2.3) mg/dL Total Bilirubin 2.1 H (0.2-1.3) mg/dL AST 47 (17-59) IU/L ALT 36 (<50) IU/L Alkaline Phosphatase 103 (38-126) U/L Total Creatine Kinase 86 (55-170) U/L Troponin I 0.025 (0.01-0.034) ng/mL NT-Pro-B Natriuret Pep (<450) pg/mL Total Protein 7.4 (6.3-8.2) g/dL Albumin 4.0 (3.5-5.0) g/dL Globulin 3.4 (1.7-4.1) g/dL Albumin/Globulin Ratio 1.2 (1.0-2.8) U Opiates 300ng/mL cut (Negative) Ur Oxycodone Screen (Negative) Urine Methadone Screen (Negative) Ur Barbiturates Screen (Negative) U Tricyclic Antidepress (Negative) Ur Phencyclidine Scrn (Negative) Ur Amphetamines Screen (Negative) U Methamphetamines Scrn (Negative) Ur MDMA Scrn (Ecstasy) (Negative) U Benzodiazepines Scrn (Negative) Urine Cocaine Screen (Negative) U Marijuana (THC) Screen (Negative) Ethyl Alcohol ( - 10) mg/dL 09/12/22 09/12/22 Range/Units 14:10 14:27 WBC (4.5-11.0) X10^3/uL RBC (4.5-5.9) X10^6/uL Hgb (13.5-17.5) g/dL Hct (41-53) % MCV (80-100) fL MCH (26-34) PG MCHC (30-36) % RDW (11.6-14.8) % Plt Count (150-400) X10^3/uL Neut % (Auto) (50-75) % Lymph % (Auto) (25-40) % [place] % (Auto) (3-14) % Eos % (Auto) (2-4) % Baso % (Auto) (0-2) % Neut # (Auto) (5520-8213) /uL Lymph # (Auto) (0960-5221) /uL [place] # (Auto) (0-900) /uL Eos # (Auto) (0-450) /uL Baso # (Auto) (0-100) /uL PT (10.1-12.7) SECONDS INR (0.9-1.3) APTT (26-36) SECONDS Sodium (137-145) mmol/L Potassium (3.4-5.1) mmol/L Chloride (98-107) mmol/L Carbon Dioxide (22-32) mmol/L BUN (9-20) mg/dL Creatinine (0.66-1.25) mg/dL Estimated GFR (>60) mL/min BUN/Creatinine Ratio (6-22) Glucose (80-110) mg/dL Calcium (8.4-10.2) mg/dL Magnesium (1.6-2.3) mg/dL Total Bilirubin (0.2-1.3) mg/dL AST (17-59) IU/L ALT (<50) IU/L Alkaline Phosphatase (38-126) U/L Total Creatine Kinase (55-170) U/L Troponin I (0.01-0.034) ng/mL NT-Pro-B Natriuret Pep 02715 H (<450) pg/mL Total Protein (6.3-8.2) g/dL Albumin (3.5-5.0) g/dL Globulin (1.7-4.1) g/dL Albumin/Globulin Ratio (1.0-2.8) U Opiates 300ng/mL cut Negative (Negative) Ur Oxycodone Screen Negative (Negative) Urine Methadone Screen Negative (Negative) Ur Barbiturates Screen Negative (Negative) U Tricyclic Antidepress Negative (Negative) Ur Phencyclidine Scrn Negative (Negative) Ur Amphetamines Screen Negative (Negative) U Methamphetamines Scrn Negative (Negative) Ur MDMA Scrn (Ecstasy) Negative (Negative) U Benzodiazepines Scrn Negative (Negative) Urine Cocaine Screen Negative (Negative) U Marijuana (THC) Screen Negative (Negative) Ethyl Alcohol < 10 ( - 10) mg/dL Point of Care Testing Glucose POC 105 Urine Dip Bedside Urine Glucose Negative Bedside Urine Bilirubin - Negative Bedside Urine Ketone - Negative Urine Specific [place] 1.015 Bedside Urine Occult Blood +/- Bedside Urine pH 5.5 Bedside Urine Protein - Negative Bedside Urine Urobilinogen - Negative Bedside Urine Nitrite - Negative Bedside Urine Leukocytes - Negative Esterase Imaging Data Chest x-ray: Radiologist's Impression: PROCEDURE:? XR CHEST 1V ? INDICATIONS:? Possible stroke ? TECHNIQUE:? One view of the chest was acquired.? ? COMPARISON:? [facility], , XR CHEST 2V, 12/15/2021, 17:47. ? FINDINGS:? ? Surgical changes and devices:? None.? ? Lungs and pleura:? Bibasilar infiltrates consistent with atelectasis, worse on the right. ?No pleural effusions or pneumothorax.? ? Mediastinum:? Mediastinal contours appear normal.? Heart size is normal.? ? Bones and chest wall:? No suspicious bony lesions.? Overlying soft tissues appear unremarkable.? ? IMPRESSION:? Bibasilar infiltrates consistent with atelectasis, worse on the right. ? ? Dictated by: Nahum Pearson M.D. on 09/12/2022 at 14:2 CT scan - head: Radiologist's Impression: PROCEDURE:? CT STROKE ? INDICATIONS:? Positive BE-FAST, Stroke symptoms ? TECHNIQUE:? Noncontrast 4.5 mm thick angled axial sections acquired from the foramen magnum to the vertex, with coronal reformats.? For radiation dose reduction, the following was used:? automated exposure control, adjustment of mA and/or kV according to patient size.? ? COMPARISON:? None. ? FINDINGS:? Image quality:? Excellent.? ? CSF spaces:? Basal cisterns are patent.? No extra-axial fluid collections.? The ventricles are symmetric in size and shape.? ? Brain:? No intracranial bleeds or masses.? There is cerebral volume loss for age, with resultant ventricular and sulcal prominence.? There are periventricular and deep white matter chronic small vessel ischemic changes.? There is intracranial internal carotid artery atherosclerosis.? ? Skull and face:? Calvarium and visualized facial bones appear intact, without suspicious lesions.? ? Sinuses:? Visualized sinuses and mastoids are clear.? ? IMPRESSION:? 1. No acute intracranial abnormality. 2. Cerebral volume loss and small vessel ischemic changes.? ? Findings were discussed with the emergency department at Dr. Coto.? ? This study fulfills neurological imaging criteria for inclusion or exclusion of acute stroke therapies based on available published neurological guidelines.? ? ? Dictated by: Nahum Pearson M.D. on 09/12/2022 at 12:47 ? ? CTA - brain/neck: Radiologist's Impression: PROCEDURE:? CT ANGIO HEAD AND NECK ? INDICATIONS:? slurred speech ? TECHNIQUE:? ? After the administration of intravenous contrast, 1 mm thick sections acquired from the aortic arch through the [place].? Post-contrast 4.5 mm thick sections then re-acquired from the foramen magnum to the vertex.? 3-dimensional [id number]-[id number]-abjqyeqcyi (MIP) and/or volume rendering reformats were acquired of the central intracranial vasculature and neck separately. For radiation dose reduction, the following was used:? automated exposure control, adjustment of mA and/or kV according to patient size.? ? COMPARISON:? None. ? FINDINGS:? Image quality:? Excellent.? ? BRAIN:? CSF spaces:? Ventricles are normal in size and shape.? Basal cisterns are patent.? No extra-axial fluid collections.? ? Brain:? No midline shift.? No intracranial bleeds or masses.? [place]-white matter interface appears intact. ? Subcortical and periventricular white matter hypodensities are consistent with small vessel ischemic disease. ? Skull and face:? Calvarium and facial bones appear intact, without suspicious lesions.? Orbits appear normal.? ? Sinuses:? Sinuses and mastoids are clear.? ? HEAD CT ANGIOGRAPHY:? Anterior circulation:? Intracranial internal carotid arteries have atherosclerotic calcifications but are normal in size and flow.? The flow within the paired anterior cerebral arteries is normal and symmetric.? The flow within the middle cerebral arteries is normal and symmetric.? The anterior communicating artery is seen.? No aneurysms are seen.? ? Posterior circulation:? Visualized portions of the vertebral arteries demonstrate normal caliber, and join to form a normal appearing basilar artery.? Flow within the posterior cerebral arteries is normal and symmetric.? No aneurysms are seen.? ? NECK CT ANGIOGRAPHY:? Carotid system:? The great vessels demonstrate a conventional anatomy as they arise from the aortic arch.? The origins of the common carotid arteries appear patent.? The common carotid arteries demonstrate atherosclerotic calcifications bilaterally with no significant stenosis.? The bifurcation regions are both widely patent.? The internal carotid arteries demonstrate normal calibers and courses.? ? Posterior circulation:? The origins of the vertebral arteries both appear widely patent.? The more superior extracranial portions of both vertebral arteries also demonstrate normal courses and calibers.? They join to form a normal appearing basilar artery.? ? Soft tissues:? Visualized neck soft tissues demonstrate no suspicious abnormalities.? ? Bones:? No suspicious bony lesions.? Visualized cervical spine appears normally aligned.? IMPRESSION:? 1. Atherosclerotic disease with no significant stenosis. 2. No large vessel occlusion, dissection, or aneurysm.? ? Any quantitative measurements of stenosis were performed using NASCET criteria.? ? ? Dictated by: Nahum Pearson M.D. on 09/12/2022 at 14:28 ? ? ECG Data Interpretation: Atrial fibrillation rate [address] changes AFib new from previous EKG in 2020 MDM Narrative Medical decision making narrative: Patient 82-year-old male presents today with concern for TIA. He had slurring of speech ongoing for 2 hours symptoms completely resolved. He does have history of atrial fibrillation currently on Pradaxa. He reports that he was previously on warfarin his INR today is 4.6 is an elevated PTT of 116. Concern that there may be some confusion and he may still be taking the warfarin although he adamantly denies it. He is anemic but stable hemoglobin 9.7 previously 9.1 with hematocrit today is 28.9 previously 27.2. He is followed by Dr. Ybarra for anemia. Patient's symptoms concerning for TIA despite significant anticoagulation. There is also concern for medication confusion causing elevated INR. Dr. Duffy updated on patient's symptoms test results kindly accepts patient for observation. MRI is ordered for patient from the ED. Discharge Plan Departure Patient Disposition: Admitted as Observation Clinical Impression: Brain TIA Admit Date/Time: 09/12/22 16:05 Admit Provider: Yakov Duffy
[2022-09-12 14:38] LABS: Prothrombin Time 53.9 SECONDS (10.1-12.7)
[2022-09-12 14:45] LABS: Troponin I 0.025 ng/mL (0.01-0.034)
[2022-09-12 14:57] LABS: Ethanol (ETOH) < 10 mg/dL
[2022-09-12 14:58] LABS: INR 4.6 (0.9-1.3); PTT Partial Thromboplastin Tim 116 SECONDS (26-36)
[2022-09-12 15:06] LABS: NT-proBNP (BNP-Adult 18+) 16900 pg/mL (<450)
[2022-09-12 15:45] LABS: UR Morphine/Opiate cutoff 300 Negative (Negative); Ur Creatinine Normal (Normal); Ur Specific Gravity Normal (Normal); Urine Amphetamines Negative (Negative); Urine Barbiturates Negative (Negative); Urine Benzodiazepines Negative (Negative); Urine Cocaine Negative (Negative); Urine MDMA Negative (Negative); Urine Methadone Negative (Negative); Urine Methamphetamines Negative (Negative); Urine Oxycodone Negative (Negative); Urine Phencyclidine Negative (Negative); Urine Tetrahydrocannabinol Negative (Negative); Urine Tricyclic Antidepressant Negative (Negative); Urine pH Normal (Normal)
--- NOTE | 2022-09-12 16:33 | P.HP_ITS ---
History of Present Illness History of Present Illness Date Patient Seen: 09/12/22 Time Patient Seen: 16:33 Chief complaint: Afib, slurred speech, no energy, mind drifting Narrative: 82-year-old male normally sees Dr. Jesse Mcdaniels at [facility], ad mitted via emergency department with a probable TIA Patient reports approximately 10:00 day of admission he began to notice or those around him noticed slurring of his speech. Was out on a boat with grandson and spouse when they noted that he seemed to have extreme difficulty talking perhaps was even talking gibberish. Patient has a limited recollection this. Initially did not seem to have much recollection but perhaps hearing the story over and over again has incorporated some of that. 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 He also admits that during that trip in part going to [place] as well he is certain that he did not take all of his meds on a routine basis Given that they transported him to the ED but his symptoms resolved prior to his arriving emergency department Patient with persistent atrial fibrillation being followed by [facility] with plans for cardioversion in the near term future. Patient previously on warfarin started on Pradaxa back in June. Patient also with known ischemic cardiomyopathy the ejection fraction in the 35- 40% range. He has known coronary disease with stents in the right coronary and large branch of the ramus. He has known moderately severe mitral regurgitation in addition Patient also with known chronic kidney disease prostate cancer being treated with androgen deprivation therapy currently. 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 (which is again demonstrated here today, in addition to his atrial fibrillation) [facility] Medical History Androgen deprivation therapy Bilateral lower extremity edema Chronic renal failure, stage 3a Coronary artery disease Elevated PSA Essential hypertension History of anemia History of BPH History of deviated nasal septum History of dyspnea History of hypertension Hx of fatigue Hx of hyperlipidemia Hx of sleep apnea Iron deficiency anemia Ischemic cardiomyopathy LAFB (left anterior fascicular block) Long-term use of high-risk medication Lower urinary tract symptoms 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 Mitral regurgitation Mixed hyperlipidemia Myocardial infarct Nocturia associated with benign prostatic hyperplasia Osteopenia Persistent atrial fibrillation RBBB Renal artery aneurysm Sleep apnea Toe injury Surgical History Hx of neck surgery S/P coronary artery stent placement Social History marital status: household members: spouse occupational status: employed Smoking Status: Never smoker alcohol intake: current substance use type: does not use caffeine: Yes Type(s) of exercise: walking frequency: 1-2 times per week duration: < 15 minutes/day Meds Home Medications and Allergies Home Medications Medication Instructions Recorded Confirmed Type ezetimibe 10 mg tablet 10 mg PO DAILY 05/20/21 09/12/22 History ferrous sulfate 324 mg (65 mg 324 mg PO BID 02/10/22 09/12/22 History iron) tablet,delayed release hydralazine 100 mg tablet 100 mg PO TID 05/19/22 09/12/22 History metoprolol succinate 25 mg 25 mg PO DAILY 05/19/22 09/12/22 History tablet,extended release 24 hr amiodarone 200 mg tablet 200 mg PO DAILY 09/12/22 09/12/22 History dabigatran etexilate 150 mg 150 mg PO BID 09/12/22 09/12/22 History capsule (Pradaxa) lisinopril 20 mg tablet 20 mg PO DAILY 09/12/22 09/12/22 History oxybutynin chloride 5 mg tablet 5 mg TID PRN Incontinence 09/12/22 09/12/22 History potassium chloride 20 mEq 20 meq PO DAILY 09/12/22 09/12/22 History tablet,extended release rosuvastatin 40 mg tablet 40 mg PO DAILY 09/12/22 09/12/22 History torsemide 10 mg tablet 15 mg PO DAILY 09/12/22 09/12/22 History Allergies Allergy/AdvReac Type Severity Reaction Status Date / Time No Known Drug Allergies Allergy Verified 08/06/22 10:22 Review of Systems Review of Systems ROS: Yes All systems reviewed with the patient and are negative except as otherwise documented Exam Vital Signs (past 8 hours): - 09/12/22 13:22 09/12/22 15:43 09/12/22 15:37 Temperature 97.7 F Pulse Rate 86 72 81 Respiratory Rate 18 18 22 Blood Pressure 156/82 H 171/85 H Pulse Oximetry 98 97 94 Oxygen Delivery Method Room Air Room Air 09/12/22 15:47 09/12/22 15:47 Temperature Pulse Rate 74 Respiratory Rate 23 Blood Pressure 179/83 H Pulse Oximetry 96 Oxygen Delivery Method Oxygen Delivery Method Room Air Narrative Exam Narrative: Non acutely ill-appearing elderly male in no obvious distress lying in his hospital bed HEENT-unremarkable Neck-no bruits no lymphadenopathy Lungs-clear with good breath sounds. Few scattered crackles at the base right greater than left that clear with deep inspiration Heart-irregularly irregular no murmur audible although doubt I would be able to hear a subtle murmur given the irregularity that is present Abdomen-positive bowel tones soft nontender nondistended [id number]+ pitting edema to mid tibia bilaterally (chronic per patient) Objective Labs 09/13/22 04:40 09/13/22 04:40 Labs: Laboratory Results - last 24 hr 09/12/22 09/12/22 09/12/22 14:10 14:10 14:10 WBC 4.7 RBC 3.12 L Hgb 9.7 L Hct 28.9 L MCV 92.7 MCH 31.0 MCHC 33.5 RDW 20.0 H Plt Count 104 L Neut % (Auto) 57.1 Lymph % (Auto) 18.3 L [place] % (Auto) 24.6 H Eos % (Auto) 0.0 L Baso % (Auto) 0.0 Neut # (Auto) 2700 Lymph # (Auto) 900 L [place] # (Auto) 1200 H Eos # (Auto) 0 Baso # (Auto) 0 PT 53.9 H INR 4.6 H* APTT 116 H* Sodium 139 Potassium 4.2 Chloride 105 Carbon Dioxide 22 BUN 34 H Creatinine 2.39 H Estimated GFR 26 L BUN/Creatinine Ratio 14.2 Glucose 105 Calcium 9.0 Magnesium 2.3 Total Bilirubin 2.1 H AST 47 ALT 36 Alkaline Phosphatase 103 Total Creatine Kinase 86 Troponin I 0.025 NT-Pro-B Natriuret Pep Total Protein 7.4 Albumin 4.0 Globulin 3.4 Albumin/Globulin Ratio 1.2 U Opiates 300ng/mL cut Ur Oxycodone Screen Urine Methadone Screen Ur Barbiturates Screen U Tricyclic Antidepress Ur Phencyclidine Scrn Ur Amphetamines Screen U Methamphetamines Scrn Ur MDMA Scrn (Ecstasy) U Benzodiazepines Scrn Urine Cocaine Screen U Marijuana (THC) Screen Ethyl Alcohol 09/12/22 09/12/22 14:10 14:27 WBC RBC Hgb Hct MCV MCH MCHC RDW Plt Count Neut % (Auto) Lymph % (Auto) [place] % (Auto) Eos % (Auto) Baso % (Auto) Neut # (Auto) Lymph # (Auto) [place] # (Auto) Eos # (Auto) Baso # (Auto) PT INR APTT Sodium Potassium Chloride Carbon Dioxide BUN Creatinine Estimated GFR BUN/Creatinine Ratio Glucose Calcium Magnesium Total Bilirubin AST ALT Alkaline Phosphatase Total Creatine Kinase Troponin I NT-Pro-B Natriuret Pep 90962 H Total Protein Albumin Globulin Albumin/Globulin Ratio U Opiates 300ng/mL cut Negative Ur Oxycodone Screen Negative Urine Methadone Screen Negative Ur Barbiturates Screen Negative U Tricyclic Antidepress Negative Ur Phencyclidine Scrn Negative Ur Amphetamines Screen Negative U Methamphetamines Scrn Negative Ur MDMA Scrn (Ecstasy) Negative U Benzodiazepines Scrn Negative Urine Cocaine Screen Negative U Marijuana (THC) Screen Negative Ethyl Alcohol < 10 Assessment & Plan Assessment & Plan narrative: 1. TIA-patient pretty classic TIA type symptoms of a medium to large vessel occlusive type based on his presenting symptoms with alteration in speech and perhaps some degree of aphasia. He certainly is at risk for this given his known atrial fibrillation. However is anticoagulated and despite patient's assurances that he is taking the Pradaxa as prescribed only the Pradaxa not any other medication his INR and PTT are both elevated. If patient had presented with some other symptom likely reduce his dose of Pradaxa before discharge but given his neurologic symptoms he certainly needs to continue on the Pradaxa. Perhaps a lower dose Pradaxa depending on his renal function/dysfunction maybe the addition of a very low-dose platelet inhibitor such as 81 mg aspirin would be appropriate to minimize his risk of recurrent neurologic events. Will hold on this and wait on results of protime and PTT and renal function in the morning. Fortunately his CT of the head is unremarkable so there is no evidence of hemorrhage and CT angiography of the head and neck is equally unremarkable 2. Abnormal protime and PTT-most likely etiology in this situation would be co mbination of warfarin with the Pradaxa. However patient has demonstrated some minor abnormal LFTs previously, perhaps he is more vitamin K deficient than anything else. At this point I will supplement him with vitamin K and monitor his protime and partial thromboplastin time as well. Will re verify with patient that he is taking only the Pradaxa and no longer taking warfarin. His LFTs upon admission were actually normal. 3. Acute kidney injury-patient normally with the GFR in the high 30s mid 40 range. Currently his GFR is 26 with a creatinine 2.39. I believe him to be somewhat prerenal and will give him some gentle IV fluids. His BNP is quite elevated but this appears to be at baseline for him so I am not overly worried about volume overload at this point despite his known ischemic cardiomyopathy. We will continue to follow his numbers carefully. He recently had his torsemide dose increased and perhaps that is the etiology of his CAMMY. Patient does not have any symptoms of actual congestive heart failure such as orthopnea or classic PND. He does have the peripheral edema etcetera. 4. Coronary artery disease-do not believe this playing a role. Continue patient's usual medications 5. Hypertension-patient modestly hypertensive. Continue patient's usual medications 6. Anemia-thought to be secondary to both his renal disease as well as iron deficiency. Continue patient's oral iron replacement therapy and continue to monitor. Numbers appear to be within the range he normally is on chronic and routine basis. Patient also somewhat thrombocytopenic but again this is at baseline for patient. 7. Atrial fibrillation-patient appears to have adequate rate control. He is being loaded with amiodarone prior to DC cardioversion in the future. Continue the amiodarone for now although that could have played a role in his anticoagulation issues as above. 8. VTE prophylaxis-patient anticoagulated chronically as above. No additional prophylaxis necessary 9. Code status-patient appropriate for full code the case of sudden cardiac or respiratory arrest which is not anticipated at this time
--- NOTE | 2022-09-12 16:45 | PC.NURSE ---
Report given to Amy RODRIGUEZ for room 222
[2022-09-12] MEDS: HYDRALAZINE 25 MG TABLET 100 MG PO (21:26)
[2022-09-12] MEDS: SODIUM CHLORIDE 0.9% 1,000 ML 100 ML IV (21:27)
[2022-09-12] MEDS: PHYTONADIONE (VIT K1) 5 MG TABLET 10 MG PO (21:28)
[2022-09-12] MEDS: FERROUS SULFATE 325 MG TABLET PO (21:30)
[2022-09-12] MEDS: SENNOSIDES 8.6 MG TABLET PO (22:15)
[2022-09-13 00:28] VITALS: BP 134/67; PULSE 82
[2022-09-13 05:16] LABS: Add Manual Diff / Slide Review NO; Basophils Absolute Auto 0 /uL (0-100); Basophils Percent Auto 0.5 % (0-2); Eosinophils Absolute Auto 100 /uL (0-450); Eosinophils Percent Auto 1.8 % (2-4); Hematocrit 27.2 % (41-53); Lymphocytes Absolute Auto 700 /uL (1100-4500); Lymphocytes Percent Auto 16.2 % (25-40); Mean Corpuscular HGB Conc 33.3 % (30-36); Mean Corpuscular Hemoglobin 30.8 PG (26-34); Mean Corpuscular Volume 92.7 fL (80-100); Monocytes Absolute Auto 900 /uL (0-900); Monocytes Percent Auto 22.3 % (3-14); Neutrophils Absolute Auto 2500 /uL (1500-7000); Neutrophils Percent Auto 59.2 % (50-75); Platelet Count 97 X10^3/uL (150-400); Red Blood Cell Count 2.93 X10^6/uL (4.5-5.9); Red Cell Distribution Width 19.8 % (11.6-14.8); White Blood Cell Count 4.2 X10^3/uL (4.5-11.0)
[2022-09-13 05:18] LABS: INR 3.4 (0.9-1.3); Prothrombin Time 39.9 SECONDS (10.1-12.7)
[2022-09-13 05:24] LABS: Alanine Aminotransferase 30 IU/L (<50); Albumin 3.4 g/dL (3.5-5.0); Albumin Globulin Ratio 1.1 (1.0-2.8); Alkaline Phosphatase 86 U/L (38-126); Aspartate Aminotransferase 34 IU/L (17-59); Bilirubin Total 1.5 mg/dL (0.2-1.3); Bilirubin Unconjugated 0.9 mg/dL (0.0-1.1); Blood Urea Nitrogen 32 mg/dL (9-20); Calcium 8.4 mg/dL (8.4-10.2); Carbon Dioxide 23 mmol/L (22-32); Chloride 105 mmol/L (98-107); Estimated Glomerular Filt Rate 30 mL/min (>60); Glucose 90 mg/dL (80-110); HEMOLYSIS < 15 (0-50); Potassium 3.4 mmol/L (3.4-5.1); Sodium 138 mmol/L (137-145); Total Protein 6.4 g/dL (6.3-8.2)
[2022-09-13 05:33] LABS: PTT Partial Thromboplastin Tim 96 SECONDS (26-36)
[2022-09-13 07:00] VITALS: BP 159/82; PULSE 73; RESP 17; TEMP 36.2; O2SAT 93; O2SAT 97
[2022-09-13] MEDS: POTASSIUM CHLORIDE 20 MEQ TAB 40 MEQ PO (07:49)
[2022-09-13 08:25] VITALS: BP 159/82
[2022-09-13] MEDS: METOPROLOL ER 25 MG TABLET PO (08:25)
[2022-09-13] MEDS: FERROUS SULFATE 325 MG TABLET PO (08:25)
[2022-09-13] MEDS: TORSEMIDE 10 MG TABLET 15 MG PO (08:25)
[2022-09-13 08:26] VITALS: BP 159/82; PULSE 73
[2022-09-13] MEDS: lisinopriL 20 MG TABLET PO (08:26)
[2022-09-13] MEDS: EZETIMIBE 10 MG TABLET PO (08:26)
[2022-09-13] MEDS: AMIODARONE 200 MG TABLET PO (08:26)
[2022-09-13] MEDS: HYDRALAZINE 25 MG TABLET 100 MG PO (08:26)
--- NOTE | 2022-09-13 09:51 | PM.PN.1 ---
Subjective Subjective Date Patient Seen: 09/13/22 Time Patient Seen: 09:51 Exam Vital Signs (past 8 hours): - 09/13/22 07:00 09/13/22 08:25 09/13/22 08:26 Temperature Pulse Rate 73 Respiratory Rate Blood Pressure 159/82 H 159/82 H Pulse Oximetry 97 Oxygen Delivery Method Room Air Oxygen Flow Rate 0 09/13/22 08:26 09/13/22 07:00 Temperature 97.1 F L Pulse Rate 73 73 Respiratory Rate 17 Blood Pressure 159/82 H 159/82 H Pulse Oximetry 93 Oxygen Delivery Method Oxygen Flow Rate 0 Oxygen Delivery Method Room Air Oxygen Flow Rate 0 Objective Labs 09/13/22 04:40 09/13/22 04:40 Labs: Laboratory Results - last 24 hr 09/12/22 09/12/22 09/12/22 14:10 14:10 14:10 WBC 4.7 RBC 3.12 L Hgb 9.7 L Hct 28.9 L MCV 92.7 MCH 31.0 MCHC 33.5 RDW 20.0 H Plt Count 104 L Neut % (Auto) 57.1 Lymph % (Auto) 18.3 L [place] % (Auto) 24.6 H Eos % (Auto) 0.0 L Baso % (Auto) 0.0 Neut # (Auto) 2700 Lymph # (Auto) 900 L [place] # (Auto) 1200 H Eos # (Auto) 0 Baso # (Auto) 0 PT 53.9 H INR 4.6 H* APTT 116 H* Sodium 139 Potassium 4.2 Chloride 105 Carbon Dioxide 22 BUN 34 H Creatinine 2.39 H Estimated GFR 26 L BUN/Creatinine Ratio 14.2 Glucose 105 Calcium 9.0 Magnesium 2.3 Total Bilirubin 2.1 H Conjugated Bilirubin Unconjugated Bilirubin AST 47 ALT 36 Alkaline Phosphatase 103 Total Creatine Kinase 86 Troponin I 0.025 NT-Pro-B Natriuret Pep Total Protein 7.4 Albumin 4.0 Globulin 3.4 Albumin/Globulin Ratio 1.2 U Opiates 300ng/mL cut Ur Oxycodone Screen Urine Methadone Screen Ur Barbiturates Screen U Tricyclic Antidepress Ur Phencyclidine Scrn Ur Amphetamines Screen U Methamphetamines Scrn Ur MDMA Scrn (Ecstasy) U Benzodiazepines Scrn Urine Cocaine Screen U Marijuana (THC) Screen Ethyl Alcohol 09/12/22 09/12/22 09/13/22 14:10 14:27 04:40 WBC 4.2 L RBC 2.93 L Hgb 9.0 L Hct 27.2 L MCV 92.7 MCH 30.8 MCHC 33.3 RDW 19.8 H Plt Count 97 L Neut % (Auto) 59.2 Lymph % (Auto) 16.2 L [place] % (Auto) 22.3 H Eos % (Auto) 1.8 L Baso % (Auto) 0.5 Neut # (Auto) 2500 Lymph # (Auto) 700 L [place] # (Auto) 900 Eos # (Auto) 100 Baso # (Auto) 0 PT INR APTT Sodium Potassium Chloride Carbon Dioxide BUN Creatinine Estimated GFR BUN/Creatinine Ratio Glucose Calcium Magnesium Total Bilirubin Conjugated Bilirubin Unconjugated Bilirubin AST ALT Alkaline Phosphatase Total Creatine Kinase Troponin I NT-Pro-B Natriuret Pep 32091 H Total Protein Albumin Globulin Albumin/Globulin Ratio U Opiates 300ng/mL cut Negative Ur Oxycodone Screen Negative Urine Methadone Screen Negative Ur Barbiturates Screen Negative U Tricyclic Antidepress Negative Ur Phencyclidine Scrn Negative Ur Amphetamines Screen Negative U Methamphetamines Scrn Negative Ur MDMA Scrn (Ecstasy) Negative U Benzodiazepines Scrn Negative Urine Cocaine Screen Negative U Marijuana (THC) Screen Negative Ethyl Alcohol < 10 09/13/22 09/13/22 04:40 04:40 WBC RBC Hgb Hct MCV MCH MCHC RDW Plt Count Neut % (Auto) Lymph % (Auto) [place] % (Auto) Eos % (Auto) Baso % (Auto) Neut # (Auto) Lymph # (Auto) [place] # (Auto) Eos # (Auto) Baso # (Auto) PT 39.9 H D INR 3.4 H APTT 96 H* D Sodium 138 Potassium 3.4 Chloride 105 Carbon Dioxide 23 BUN 32 H Creatinine 2.14 H Estimated GFR 30 L BUN/Creatinine Ratio 15.0 Glucose 90 Calcium 8.4 Magnesium 2.0 Total Bilirubin 1.5 H Conjugated Bilirubin 0.0 Unconjugated Bilirubin 0.9 AST 34 ALT 30 Alkaline Phosphatase 86 Total Creatine Kinase Troponin I NT-Pro-B Natriuret Pep Total Protein 6.4 Albumin 3.4 L Globulin 3.0 Albumin/Globulin Ratio 1.1 U Opiates 300ng/mL cut Ur Oxycodone Screen Urine Methadone Screen Ur Barbiturates Screen U Tricyclic Antidepress Ur Phencyclidine Scrn Ur Amphetamines Screen U Methamphetamines Scrn Ur MDMA Scrn (Ecstasy) U Benzodiazepines Scrn Urine Cocaine Screen U Marijuana (THC) Screen Ethyl Alcohol PFSH Medical History Androgen deprivation therapy Bilateral lower extremity edema Chronic renal failure, stage 3a Coronary artery disease Elevated PSA Essential hypertension History of anemia History of BPH History of deviated nasal septum History of dyspnea History of hypertension Hx of fatigue Hx of hyperlipidemia Hx of sleep apnea Iron deficiency anemia Ischemic cardiomyopathy LAFB (left anterior fascicular block) Long-term use of high-risk medication Lower urinary tract symptoms 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 Mitral regurgitation Mixed hyperlipidemia Myocardial infarct Nocturia associated with benign prostatic hyperplasia Osteopenia Persistent atrial fibrillation RBBB Renal artery aneurysm Sleep apnea Toe injury Surgical History Hx of neck surgery S/P coronary artery stent placement Social History marital status: household members: spouse occupational status: employed Smoking Status: Never smoker alcohol intake: current substance use type: does not use caffeine: Yes Type(s) of exercise: walking frequency: 1-2 times per week duration: < 15 minutes/day Quality VTE Deep Vein Thrombosis/Pulmonary Embolism Present on Admission: No
--- NOTE | 2022-09-13 10:20 | PM.DS.1 ---
History of Present Illness History of Present Illness Date Patient Seen: 09/13/22 Time Patient Seen: 10:44 Chief complaint: Afib, slurred speech, no energy, mind drifting Narrative: 82-year-old male normally sees Dr. Jesse Mcdaniels at [facility], admitted via emergency department with a probable TIA Patient reports approximately 10:00 day of admission he began to notice or those around him noticed slurring of his speech. Was out on a boat with grandson and spouse when they noted that he seemed to have extreme difficulty talking perhaps was even talking gibberish. Patient has a limited recollection this. Initially did not seem to have much recollection but perhaps hearing the story over and over again has incorporated some of that. 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 He also admits that during that trip in part going to [place] as well he is certain that he did not take all of his meds on a routine basis Given that they transported him to the ED but his symptoms resolved prior to his arriving emergency department Patient with persistent atrial fibrillation being followed by [facility] with plans for cardioversion in the near term future. Patient previously on warfarin started on Pradaxa back in June. Patient also with known ischemic cardiomyopathy the ejection fraction in the 35-40% range. He has known coronary disease with stents in the right coronary and large branch of the ramus. He has known moderately severe mitral regurgitation in addition Patient also with known chronic kidney disease prostate cancer being treated with androgen deprivation therapy currently. 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 TIA with speech symptoms, resolved 2. Hypertension 3. Prostate cancer 4. Persistent atrial fibrillation 5. Long-term anticoagulation 6. Coronary artery disease 7. Ischemic cardiomyopathy 8. Peripheral edema 9. Moderate to moderately severe mitral regurgitation 10. Chronic renal failure stage 3 a 11. Acute kidney injury 12. Iatrogenic coagulopathy Hospital Course: Patient presented with the above neurologic symptoms that resolved during his ER evaluation. ER evaluation was unremarkable no evidence of intracranial hemorrhage or other significant change that could be noted on head CT. CT angiography of the head and neck also failed to demonstrate any significant obstruction or aneurysm etcetera. Given complete resolution of symptoms and negative findings MRI was initially ordered but inadvertently canceled in the computer system. In the end after discussion with patient was felt as though findings on MRI would be extremely unlikely to change patient's treatment plan and therefore after discussing options with patient we elected to forego doing an MRI. If patient has additional symptoms in that would be an essential next step Patient was noted to be in atrial fibrillation for the duration of his hospitalization. He had begun taking amiodarone the direction of his cardiology team as well as Pradaxa several weeks prior. Upon admission his INR was elevated as was his PTT. Patient also with an elevation of his creatinine (question secondary to increase dose torsemide) from his baseline. It was felt as though a combination of the amiodarone plus the acute kidney injury were likely causing some element of an iatrogenic coagulopathy due to probably excessive dose of the Pradaxa in that setting. Fortunately patient did not show any evidence of bleeding as a complication certainly no source of bleeding as a source of his neurologic symptoms. However given his neurologic symptoms it was felt as though patient needed to be continuously anticoagulated, as some sort thromboembolic event related to his atrial fibrillation is by far the most likely etiology for his neurologic symptoms. However patient had been started on Pradaxa and [id number] cost for this medication was extraordinarily high. Patient had been obtaining his supply from a [place] pharmacy. Therefore it would be cost prohibitive for him to try and obtain a another supply of lower dose Prad[place]a from a [place] pharmacy for him to take over the next several days. Patient I feel does need to be discharged on some sort of oral anticoagulant given his neurologic presentation and while I do not know that Pradaxa is the best choice and I would prefer to have him on a much lower dose if we were going to select that medication, that does not appear to be an option for this patient in this situation. He needs to be on something today, tomorrow, the next day, etcetera and does not appear we are going to be able to find a cost effective medication that is safe for him in that short period of time. Therefore the best compromise seems to be for him to take only 1 of his 150 mg Pradaxa once a day. I discussed with him, and will discuss with his PCP, consideration of investigation with his insurance company for an alternative direct oral anticoagulant that would have a smaller [id number] co-pay cost for patient which I believe likely to be the case. This would also be beneficial as a different drugs should not have the same kind of interaction with amiodarone that the Pradaxa does have. In addition given that the patient had a neurologic event on what is probably an excessive dose of Pradaxa I believe he needs additional treatment to prevent future neurologic events and would benefit from an antiplatelet drugs such as aspirin at low-dose. I discussed with patient that this is a bit of a puzzling situation where in 1 hand I feel as though he was a bit over anticoagulated with Pradaxa combined with the amiodarone and the acute kidney injury, on the other hand he presented with a neurologic symptoms that almost certainly was due to a thromboembolic event requiring anticoagulation and perhaps increased anticoagulation. I think for this patient the best answer is going to meet somewhere in the middle by reducing the dose of his Pradaxa at least temporarily while searching for an alternative and adding an antiplatelet agent in the form of 81 mg aspirin to provide better coverage for recurrent neurologic events hopefully. Patient also pointed out very appropriately that he was scheduled for an elective DC cardioversion later this coming week and if we could return his rhythm to sinus rhythm that should overall reduce his risk of future neurologic events as well (eventually). Patient also with significant peripheral edema 2-3+ at the ankles and pretibial area. This I believe is why he had his torsemide dose increased by Cardiology recently. However he showed evidence of acute kidney injury that improved with IV fluid administration. I think he should go back to the lower dose of his torsemide despite the increased edema and work with Cardiology to find perhaps an alternative to that regimen for treatment of his peripheral edema. Close monitoring of his renal function would also be critically important in that situation, as noted above that will have an impact on selection of oral anticoagulant etcetera. Patient's other medical issues were essentially stable and unremarkable during this hospitalization Exam Vital Signs (past 8 hours): - 09/13/22 07:00 09/13/22 08:25 09/13/22 08:26 Temperature Pulse Rate 73 Respiratory Rate Blood Pressure 159/82 H 159/82 H Pulse Oximetry 97 Oxygen Delivery Method Room Air Oxygen Flow Rate 0 09/13/22 08:26 09/13/22 07:00 Temperature 97.1 F L Pulse Rate 73 73 Respiratory Rate 17 Blood Pressure 159/82 H 159/82 H Pulse Oximetry 93 Oxygen Delivery Method Oxygen Flow Rate 0 Oxygen Delivery Method Room Air Oxygen Flow Rate 0 Objective Labs 09/13/22 04:40 09/13/22 04:40 Labs: Laboratory Results - last 24 hr 09/12/22 09/12/22 09/12/22 14:10 14:10 14:10 WBC 4.7 RBC 3.12 L Hgb 9.7 L Hct 28.9 L MCV 92.7 MCH 31.0 MCHC 33.5 RDW 20.0 H Plt Count 104 L Neut % (Auto) 57.1 Lymph % (Auto) 18.3 L [place] % (Auto) 24.6 H Eos % (Auto) 0.0 L Baso % (Auto) 0.0 Neut # (Auto) 2700 Lymph # (Auto) 900 L [place] # (Auto) 1200 H Eos # (Auto) 0 Baso # (Auto) 0 PT 53.9 H INR 4.6 H* APTT 116 H* Sodium 139 Potassium 4.2 Chloride 105 Carbon Dioxide 22 BUN 34 H Creatinine 2.39 H Estimated GFR 26 L BUN/Creatinine Ratio 14.2 Glucose 105 Calcium 9.0 Magnesium 2.3 Total Bilirubin 2.1 H Conjugated Bilirubin Unconjugated Bilirubin AST 47 ALT 36 Alkaline Phosphatase 103 Total Creatine Kinase 86 Troponin I 0.025 NT-Pro-B Natriuret Pep Total Protein 7.4 Albumin 4.0 Globulin 3.4 Albumin/Globulin Ratio 1.2 U Opiates 300ng/mL cut Ur Oxycodone Screen Urine Methadone Screen Ur Barbiturates Screen U Tricyclic Antidepress Ur Phencyclidine Scrn Ur Amphetamines Screen U Methamphetamines Scrn Ur MDMA Scrn (Ecstasy) U Benzodiazepines Scrn Urine Cocaine Screen U Marijuana (THC) Screen Ethyl Alcohol 09/12/22 09/12/22 09/13/22 14:10 14:27 04:40 WBC 4.2 L RBC 2.93 L Hgb 9.0 L Hct 27.2 L MCV 92.7 MCH 30.8 MCHC 33.3 RDW 19.8 H Plt Count 97 L Neut % (Auto) 59.2 Lymph % (Auto) 16.2 L [place] % (Auto) 22.3 H Eos % (Auto) 1.8 L Baso % (Auto) 0.5 Neut # (Auto) 2500 Lymph # (Auto) 700 L [place] # (Auto) 900 Eos # (Auto) 100 Baso # (Auto) 0 PT INR APTT Sodium Potassium Chloride Carbon Dioxide BUN Creatinine Estimated GFR BUN/Creatinine Ratio Glucose Calcium Magnesium Total Bilirubin Conjugated Bilirubin Unconjugated Bilirubin AST ALT Alkaline Phosphatase Total Creatine Kinase Troponin I NT-Pro-B Natriuret Pep 61837 H Total Protein Albumin Globulin Albumin/Globulin Ratio U Opiates 300ng/mL cut Negative Ur Oxycodone Screen Negative Urine Methadone Screen Negative Ur Barbiturates Screen Negative U Tricyclic Antidepress Negative Ur Phencyclidine Scrn Negative Ur Amphetamines Screen Negative U Methamphetamines Scrn Negative Ur MDMA Scrn (Ecstasy) Negative U Benzodiazepines Scrn Negative Urine Cocaine Screen Negative U Marijuana (THC) Screen Negative Ethyl Alcohol < 10 09/13/22 09/13/22 04:40 04:40 WBC RBC Hgb Hct MCV MCH MCHC RDW Plt Count Neut % (Auto) Lymph % (Auto) [place] % (Auto) Eos % (Auto) Baso % (Auto) Neut # (Auto) Lymph # (Auto) [place] # (Auto) Eos # (Auto) Baso # (Auto) PT 39.9 H D INR 3.4 H APTT 96 H* D Sodium 138 Potassium 3.4 Chloride 105 Carbon Dioxide 23 BUN 32 H Creatinine 2.14 H Estimated GFR 30 L BUN/Creatinine Ratio 15.0 Glucose 90 Calcium 8.4 Magnesium 2.0 Total Bilirubin 1.5 H Conjugated Bilirubin 0.0 Unconjugated Bilirubin 0.9 AST 34 ALT 30 Alkaline Phosphatase 86 Total Creatine Kinase Troponin I NT-Pro-B Natriuret Pep Total Protein 6.4 Albumin 3.4 L Globulin 3.0 Albumin/Globulin Ratio 1.1 U Opiates 300ng/mL cut Ur Oxycodone Screen Urine Methadone Screen Ur Barbiturates Screen U Tricyclic Antidepress Ur Phencyclidine Scrn Ur Amphetamines Screen U Methamphetamines Scrn Ur MDMA Scrn (Ecstasy) U Benzodiazepines Scrn Urine Cocaine Screen U Marijuana (THC) Screen Ethyl Alcohol PFSH Medical History Androgen deprivation therapy Bilateral lower extremity edema Chronic renal failure, stage 3a Coronary artery disease Elevated PSA Essential hypertension History of anemia History of BPH History of deviated nasal septum History of dyspnea History of hypertension Hx of fatigue Hx of hyperlipidemia Hx of sleep apnea Iron deficiency anemia Ischemic cardiomyopathy LAFB (left anterior fascicular block) Long-term use of high-risk medication Lower urinary tract symptoms 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 Mitral regurgitation Mixed hyperlipidemia Myocardial infarct Nocturia associated with benign prostatic hyperplasia Osteopenia Persistent atrial fibrillation RBBB Renal artery aneurysm Sleep apnea Toe injury Surgical History Hx of neck surgery S/P coronary artery stent placement Social History marital status: household members: spouse occupational status: employed Smoking Status: Never smoker alcohol intake: current substance use type: does not use caffeine: Yes Type(s) of exercise: walking frequency: 1-2 times per week duration: < 15 minutes/day Discharge Assessment & Plan Assessment and Plan Plan of Treatment: Patient be discharged home to continue on lower dose of torsemide as I was concerned about the increased dose torsemide causing an element of acute kidney injury contributing to perhaps an iatrogenic coagulopathy Patient also to be discharged home on lower dose Pradaxa as above best choice seems to be 150 mg once a day, since this struggles cost prohibitive for him to obtain locally and he needs to continue some sort of anticoagulation over the next several days 150 mg once a day seems like the best compromise for now. I have strongly recommended to patient and will do so to his PCP that an alternative form of anticoagulation that is more cost effective and perhaps safer be investigated for this patient. I would think a different direct oral anticoagulant would be a reasonable option, but that depends on insurance coverage, or lack thereof. Patient also be discharged on 81 mg aspirin once a day as an antiplatelet agent to further reduce his risk of thromboembolic neurologic events since he presented with what is presumed to be a thromboembolic neurologic event despite the anticoagulation with Pradaxa which if anything may have been inadvertently a bit of over anticoagulation as above. Patient also with persistent significant lower extremity edema and yet despite this I am reducing his overall diuretic dose because of evidence of acute kidney injury as above. This will also need to be dealt with as an outpatient by either his PCP or his cardiology team. Patient will follow up closely with his PCP Dr. Mcdaniels. In addition patient reports he is scheduled for elective DC cardioversion of his atrial fibrillation later this week with [facility]. Discharge Plan Discharge Plan Patient Disposition: Home Provider Discharge Comment: Patient to take next dose Pradaxa in the evening of 09/13/2022 Discharge orders & Medications Prescriptions: New torsemide 10 mg Tablet 10 mg PO DAILY Qty: 90 3RF docusate sodium 100 mg Capsule 100 mg PO BID PRN (Reason: Constipation) Qty: 60 0RF aspirin [Adult Low Dose Aspirin] 81 mg tablet,delayed release (DR/EC) 81 mg PO DAILY Qty: 90 0RF dabigatran etexilate [Pradaxa] 150 mg capsule 150 mg PO DAILY Qty: 90 0RF Continued ferrous sulfate 324 mg (65 mg iron) Tablet,Delayed Release (Dr/Ec) 324 mg PO BID hydralazine 100 mg tablet 100 mg PO TID metoprolol succinate 25 mg tablet extended release 24 hr 25 mg PO DAILY amiodarone 200 mg tablet 200 mg PO DAILY rosuvastatin 40 mg tablet 40 mg PO DAILY Patient Comments: TAKE ONE TABLET BY MOUTH ONE TIME DAILY oxybutynin chloride 5 mg tablet 5 mg TID PRN (Reason: Incontinence) Rx Instructions: take 1 tablet by mouth up to 3 times daily for control of symptoms as needed. lisinopril 20 mg tablet 20 mg PO DAILY potassium chloride 20 mEq tablet extended release 20 meq PO DAILY ezetimibe 10 mg tablet 10 mg PO DAILY Discontinued torsemide 10 mg tablet 15 mg PO DAILY dabigatran etexilate [Pradaxa] 150 mg capsule 150 mg PO BID Follow up/Referrals: Jesse Mcdaniels MD [Primary Care Provider] - 2 Weeks Diet/Activity/Treatments Diet: Diet as Tolerated and Low-sodium Visit Report/Discharge Packet Instructions: Transient Ischemic Attack Stand Alone Forms: Patient Portal/API, Stroke Signs & Symptoms Discharge Data Primary Care Provider: Jesse Mcdaniels Attending Provider: Yakov Duffy Admit Date/Time: 09/12/22 16:05 Quality VTE Deep Vein Thrombosis/Pulmonary Embolism Present on Admission: No
[2022-09-13] MEDS: ASPIRIN EC 81 MG TABLET PO (10:59)
[2022-09-13] MEDS: PHYTONADIONE (VIT K1) 5 MG TABLET 10 MG PO (11:00)
--- NOTE | 2022-09-13 12:13 | CM.DANOTE ---
Discharge Assessment Note: Met briefly with patient, he already had discharge orders and ready to go. He was admitted with reporting TIA/Stroke symptoms just prior to admission with no reoccurrence. 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 Patient lives with spouse locally and is active and independent. PLAN: Discharge home to care of spouse. TRISHA Discharge Planning/Care Management CM Discharge Assessment Start: 09/13/22 12:12 Freq: Status: Active Protocol: Document 09/13/22 12:12 (Rec: 09/13/22 12:13 [id number]) Discharge Planning Assessment Assigned Engineering Design Supervisor Deirdre Oliveros RN/DCP Advance Directives? No History Provided By Patient,Medical Record Prior Living Arrangements House Household Members spouse Type of transporation used prior to Drives own vehicle admit Independent with ADL's Yes Is patient alert and oriented? Yes Caregiver for Another No Barriers to Discharge No Referrals Initiated None needed
== END 2022-09-13 11:03 | disposition home or self-care (01) ==
LOC: ED 16:01 → AC 16:06
PROVIDERS: Admitting Provider Internal Medicine; Emergency Provider Emergency Medicine; PCP Family Medicine; Referring Provider Emergency Medicine; Visit Provider Internal Medicine
DX: G45.9 Transient cerebral ischemic attack, unspecified (principal); I10 Essential (primary) hypertension; R79.1 Abnormal coagulation profile; N17.9 Acute kidney failure, unspecified; I48.91 Unspecified atrial fibrillation; I25.10 Atherosclerotic heart disease of native coronary artery without angina pectoris; D64.9 Anemia, unspecified
CPT/HCPCS: 36415; 70450; 70496; 70498; 71045; 80048; 80053; 80076; 80305; 80320; 81003; 82550; 82962; 83735; 83880; 84484; 85025; 85610; 85730; 93005; 93010; 96360; 96361; 99223; 99238; 99284; G0378; Q9967

== ENCOUNTER → 2022-09-18 15:53 | Outpatient (CLI) | payer MEDICARE, OTHER, SELFPAY ==
[2022-09-12 17:09] VITALS: BMI 27.2
--- NOTE | 2022-09-18 15:55 | DI.MRI.S_ITS ---
PROCEDURE: MR LUMBAR SPINE WO CON INDICATIONS: Low back pain, unspecified TECHNIQUE: Noncontrast sagittal T1 spin echo and T2 fast echo, sagittal STIR, and T2 fast spin echo through the lumbar spine. In cases with scoliosis, additional coronal T2 fast spin echo may be performed. COMPARISON: [facility], MR, MR LUMBAR SPINE WO CON, 06/27/2020, 15:45. FINDINGS: Image quality: Excellent. Alignment and Curvature: Straightening of normal lumbar lordosis. Minimal retrolisthesis L2 on L3. Bone Marrow: Marrow is of normal overall signal. No acute vertebral body compression fractures. Spinal Cord: Conus medullaris terminates at the L1-L2 level. Visualized cord demonstrates normal signal and size. Paraspinous Soft Tissues: No paravertebral masses. T12-L1: Normal appearance. L1-L2: Disc desiccation and severe height loss with a posterior disc bulge without central canal stenosis. Facet arthropathy. Mild right neural foraminal narrowing. No left neural foraminal narrowing. L2-L3: Disc desiccation, severe height loss and posterior disc bulge resulting in mild to moderate central canal stenosis. Facet arthropathy and thickening of ligamentum flavum resulting in mild bilateral neural foraminal narrowing. L3-L4: Disc desiccation and severe disc height loss with a posterior disc bulge resulting in moderate central canal stenosis. Facet arthropathy and thickening ligamentum flavum. Mild left neural foraminal stenosis. No right neural foraminal stenosis. L4-L5: Disc desiccation, height loss and posterior disc bulge resulting in mild central canal stenosis. Facet arthropathy and ligamentum flavum thickening resulting in moderate narrowing of the bilateral lateral recesses and abutment of the descending L5 nerve roots. There is moderate left and mild right neural foraminal stenosis. L5-S1: Severe disc desiccation height loss with a small posterior disc osteophyte complex. No central canal stenosis. Facet hypertrophy. Mild bilateral neural foraminal stenosis. IMPRESSION: 1. Multilevel degenerative disc disease is overall similar in appearance compared to prior MRI 06/27/2020. 2. Central canal stenosis is worse at L3-L4 with moderate stenosis. There is moderate narrowing of the lateral recesses at L4-5 abutting the descending L5 nerve roots. 3. Moderate left neural foraminal stenosis at L4-5. Additional levels of mild neural foraminal narrowing as described above. Dictated by: Hi Beck M.D. on 09/18/2022 at 16:50 Approved by: Hi Beck M.D. on 09/18/2022 at 16:58
== END ==
PROVIDERS: PCP Family Medicine; Referring Provider Family Medicine; Visit Provider Family Medicine
DX: M51.36 Other intervertebral disc degeneration, lumbar region (principal); M48.061 Spinal stenosis, lumbar region without neurogenic claudication; M48.07 Spinal stenosis, lumbosacral region; M54.50 Low back pain, unspecified
CPT/HCPCS: 72148

== ENCOUNTER 2022-09-30 17:54 | Emergency (ER) | payer MEDICARE, OTHER, SELFPAY ==
[2022-09-12 17:09] VITALS: BMI 27.2
[2022-09-30 18:18] VITALS: BP 121/59; PULSE 76; RESP 15; TEMP 36.2; O2SAT 96; BMI 27.3
--- NOTE | 2022-09-30 18:23 | DI.RAD.S_ITS ---
PROCEDURE: XR ACUTE ABDOMEN SERIES INDICATIONS: constipation TECHNIQUE: One view chest and two views of the abdomen were acquired. COMPARISON: None. FINDINGS: Surgical changes and devices: None. Chest: Blunting of the costophrenic angles are present bilaterally. Heart size is normal. No pleural effusions. No pneumoperitoneum. Abdomen: Bowel gas pattern is nonobstructive. Significant colonic stool. No suspicious calcifications. Visualized solid organ contours appear normal. Bones: No suspicious bony lesions. IMPRESSION: Significant stool consistent constipation. No obstruction. Blunting of the costophrenic angles likely related to scarring versus minimal effusions. Dictated by: Ximena Langston M.D. on 09/30/2022 at 19:08 Approved by: Ximena Langston M.D. on 09/30/2022 at 19:09
[2022-09-30 20:55] VITALS: BP 152/79; PULSE 62; RESP 18; TEMP 36.5; O2SAT 96
--- NOTE | 2022-09-30 22:28 | ED.ABDPAIN ---
HPI - Abdominal Pain General Chief Complaint: Abdominal Pain Stated Complaint: constipation Time Seen by Provider: 09/30/22 22:14 Source: patient Mode of arrival: Ambulatory History of Present Illness HPI narrative: Patient is an 82-year-old male with recent history of TIA atrial fibrillation on Eliquis presenting today with 2 days of rectal pain and constipation. He is never had constipation like this previously he was admitted in the hospital September 12-. He was started on Eliquis and amiodarone. Not want any opiate medication. He feels like he has severe rectal pain he was straining his very painful. He is passing gas. Denies any nausea vomiting feels like he is a little bit bloated. But definitely feel that he has pressure. He is taken MiraLax yesterday and today actually did a bowel movement but he did not have 1 today is again quite uncomfortable. No fever or chills. Related Data Home Medications Medication Instructions Recorded Confirmed ezetimibe 10 mg tablet 10 mg PO DAILY 05/20/21 09/12/22 ferrous sulfate 324 mg (65 mg 324 mg PO BID 02/10/22 09/12/22 iron) tablet,delayed release hydralazine 100 mg tablet 100 mg PO TID 05/19/22 09/12/22 metoprolol succinate 25 mg 25 mg PO DAILY 05/19/22 09/12/22 tablet,extended release 24 hr amiodarone 200 mg tablet 200 mg PO DAILY 09/12/22 09/12/22 lisinopril 20 mg tablet 20 mg PO DAILY 09/12/22 09/12/22 oxybutynin chloride 5 mg tablet 5 mg TID PRN Incontinence 09/12/22 09/12/22 potassium chloride 20 mEq 20 meq PO DAILY 09/12/22 09/12/22 tablet,extended release rosuvastatin 40 mg tablet 40 mg PO DAILY 09/12/22 09/12/22 Previous Rx's Medication Instructions Recorded aspirin 81 mg tablet,delayed 81 mg PO DAILY #90 tabs 09/13/22 release (Adult Low Dose Aspirin) dabigatran etexilate 150 mg 150 mg PO DAILY #90 caps 09/13/22 capsule (Pradaxa) docusate sodium 100 mg capsule 100 mg PO BID PRN Constipation #60 09/13/22 caps torsemide 10 mg tablet 10 mg PO DAILY #90 tabs 09/13/22 lactulose 20 gram/30 mL oral 20 g (30 mL) PO BID PRN 10/01/22 solution constipation #1,200 mL Allergies Allergy/AdvReac Type Severity Reaction Status Date / Time No Known Drug Allergies Allergy Verified 09/30/22 18:18 Review of Systems Review of Systems ROS Unobtainable: All systems reviewed & are unremarkable except as noted in HPI and below Patient History Medical History Androgen deprivation therapy Bilateral lower extremity edema Chronic renal failure, stage 3a Coronary artery disease Elevated PSA Essential hypertension History of anemia History of BPH History of deviated nasal septum History of dyspnea History of hypertension Hx of fatigue Hx of hyperlipidemia Hx of sleep apnea Iron deficiency anemia Ischemic cardiomyopathy LAFB (left anterior fascicular block) Long-term use of high-risk medication Lower urinary tract symptoms 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 Mitral regurgitation Mixed hyperlipidemia Myocardial infarct Nocturia associated with benign prostatic hyperplasia Osteopenia Persistent atrial fibrillation RBBB Renal artery aneurysm Sleep apnea Toe injury Surgical History Hx of neck surgery S/P coronary artery stent placement Social History marital status: household members: spouse occupational status: employed Smoking Status: Never smoker alcohol intake: current substance use type: does not use caffeine: Yes Type(s) of exercise: walking frequency: 1-2 times per week duration: < 15 minutes/day Smoking Status: Never smoker alcohol intake frequency: holidays/special occasions only Substance Use Type: does not use Exam Initial Vital Signs Initial Vital Signs: Vital Signs Temperature 97.1 F L 09/30/22 18:18 Pulse Rate 76 09/30/22 18:18 Respiratory Rate 15 09/30/22 18:18 Blood Pressure 121/59 L 09/30/22 18:18 Pulse Oximetry 96 09/30/22 18:18 Oxygen Delivery Method Room Air 09/30/22 18:18 GENERAL: Alert pleasant 82-year-old male and in no acute distress. HEENT: Head atraumatic,EOMI, pupils reactive, face symmetric, moist mucous membranes CARDIOVASCULAR: Regular rate and rhythm without murmurs, rubs or gallops. RESPIRATORY: Breath sounds equal bilaterally, no wheezes rales or rhonchi. ABDOMEN: Soft, nontender. Normoactive bowel sounds all 4 quadrants. No guarding or rebound. RECTAL: Stool present painful disimpacted EXTREMITIES: Normal range of motion, no clubbing or edema. Neurovascularly intact NEUROLOGICAL: Alert and oriented x4. SKIN: Warm, dry, no laceration, no petechiae, no rashes or lesions. Procedures Rectal Disimpaction Indication: fecal impaction Technique: manual disimpaction with gloved finger Result: significant stool output Patient Tolerated Procedure: Well and No complications Course Orders Ordered: ED Orders 09/30/22 18:23 XR acute abdomen series Stat Discontinued Medications Mineral Oil (Mineral Oil 1 Each Enema) 1 each NM NOW ONE Stop: 09/30/22 22:29 Last Admin: 09/30/22 22:45 Dose: 1 each Documented By: SNOW Vital Signs Vital signs: Vital Signs - 8 hr 09/30/22 18:18 09/30/22 20:55 10/01/22 00:47 Temperature 97.1 F L 97.7 F Pulse Rate 76 62 65 Respiratory Rate 15 18 19 Blood Pressure 121/59 L 152/79 H 148/75 H Pulse Oximetry 96 96 97 Oxygen Delivery Method Room Air Room Air Room Air MDM - Abdominal Pain Imaging Data Abdominal x-ray: Radiologist's Impression: PROCEDURE:? XR ACUTE ABDOMEN SERIES ? INDICATIONS:? constipation ? TECHNIQUE:? One view chest and two views of the abdomen were acquired.? ? COMPARISON:? None. ? FINDINGS:? ? Surgical changes and devices:? None.? ? Chest:? Blunting of the costophrenic angles are present bilaterally.? Heart size is normal.? No pleural effusions.? No pneumoperitoneum.? ? Abdomen:? Bowel gas pattern is nonobstructive.? Significant colonic stool.? No suspicious calcifications.? Visualized solid organ contours appear normal.? ? Bones:? No suspicious bony lesions.? ? IMPRESSION:? Significant stool consistent constipation.? No obstruction. ? Blunting of the costophrenic angles likely related to scarring versus minimal effusions. ? ? Dictated by: Ximena Langston M.D. on 09/30/2022 at 19:08 ?? [facility] Narrative Medical decision making narrative: Patient 82-year-old male who presents with he thinks a constipation. He says he did have a small bowel movement the other day but is having increasing rectal pain and pressure. Unable to go despite MiraLax. He was given an enema here in the ED without significant relief. Upon manual exam he does have stool in his rectum it is quite painful there was a small amount that was removed but really was not able to tolerate large amount to be removed. Patient has an x-ray which confirms constipation as well. At this time symptoms are consistent with constipation no need for CT or further workup or evaluation. Discharge Plan Departure Patient Disposition: Home Clinical Impression: Constipation Instructions: DI for Constipation Activity Restrictions/Additional Instructions: *You have been diagnosed with constipation *What to do: At this time increase fluid as tolerated this will help. Increase fiber. *Continue to take medications as directed MiraLax daily Dulcolax 1 tablet twice a day Lactulose take as directed only until you have bowel movement then stop *Follow up with your primary care provider in 2-3 days or call [phone] *Return to ER if you should have increasing pain vomiting fever or any new, worsening or concerning symptoms Prescriptions: New lactulose 20 gram/30 mL solution 20 g PO BID PRN (Reason: constipation) Qty: 1200 0RF No Action ferrous sulfate 324 mg (65 mg iron) Tablet,Delayed Release (Dr/Ec) 324 mg PO BID hydralazine 100 mg tablet 100 mg PO TID metoprolol succinate 25 mg tablet extended release 24 hr 25 mg PO DAILY amiodarone 200 mg tablet 200 mg PO DAILY rosuvastatin 40 mg tablet 40 mg PO DAILY Patient Comments: TAKE ONE TABLET BY MOUTH ONE TIME DAILY oxybutynin chloride 5 mg tablet 5 mg TID PRN (Reason: Incontinence) Rx Instructions: take 1 tablet by mouth up to 3 times daily for control of symptoms as needed. lisinopril 20 mg tablet 20 mg PO DAILY potassium chloride 20 mEq tablet extended release 20 meq PO DAILY torsemide 10 mg Tablet 10 mg PO DAILY Qty: 90 3RF docusate sodium 100 mg Capsule 100 mg PO BID PRN (Reason: Constipation) Qty: 60 0RF aspirin [Adult Low Dose Aspirin] 81 mg tablet,delayed release (DR/EC) 81 mg PO DAILY Qty: 90 0RF dabigatran etexilate [Pradaxa] 150 mg capsule 150 mg PO DAILY Qty: 90 0RF ezetimibe 10 mg tablet 10 mg PO DAILY Referrals: Jesse Mcdaniels MD [Primary Care Provider] - Stand Alone Forms: Patient Portal/API
[2022-09-30] MEDS: MINERAL OIL 1 EACH ENEMA PR (22:45)
[2022-10-01 00:47] VITALS: BP 148/75; PULSE 65; RESP 19; O2SAT 97
== END 2022-10-01 00:42 | disposition home or self-care (01) ==
PROVIDERS: Emergency Provider Emergency Medicine; PCP Family Medicine
DX: K59.00 Constipation, unspecified (principal); K62.89 Other specified diseases of anus and rectum
CPT/HCPCS: 74022; 99282; 99283

== ENCOUNTER → 2022-10-08 13:54 | Outpatient (CLI) | payer MEDICARE, OTHER, SELFPAY ==
[2022-09-12 17:09] VITALS: BMI 27.2
--- NOTE | 2022-10-08 15:52 | ONC.PHA ---
EPO Injection - HELD: S/O: 82 y.o. male, with diagnosis of anemia of renal disease, is here to restart EPO 10,000 units SubQ injection if Hgb is below 10. Please note EPO order has been HELD since 06/2022. Patient receive Iron Sucrose 200mg x5 doses between 09/03/2022 to 09/24/2022 A/P: Reviewed 10/07/2022 labs: Hgb/Hct = 11.1/33.3 Last iron panel (10/07/2022): Ferritin = 204, Transferrin = 230, % Saturation = 14 (L), TIBC = 318, Iron = 43 (L). Last vitamin B-12 level (02/04/2022): 898 (WNL) Last folate level (10/29/2021): > 20.0 (H) Today BP: unavailable Reviewed MD note, plan for EPO 10,000 injection if Hgb < 10. Plan to HOLD EPO injection scheduled for today since Hgb is above 10. Allergies Allergy/AdvReac Type Severity Reaction Status Date / Time No Known Drug Allergies Allergy Verified 09/30/22 18:18
== END ==
PROVIDERS: PCP Family Medicine; Referring Provider Family Medicine; Visit Provider Internal Medicine Hematology & Oncology
DX: C61 Malignant neoplasm of prostate (principal); C77.5 Secondary and unspecified malignant neoplasm of intrapelvic lymph nodes; I12.9 Hypertensive chronic kidney disease with stage 1 through stage 4 chronic kidney disease, or unspecified chronic kidney disease; N18.9 Chronic kidney disease, unspecified; D63.1 Anemia in chronic kidney disease

== ENCOUNTER → 2022-11-25 16:28 | Outpatient (CLI) | payer MEDICARE, OTHER, SELFPAY ==
[2022-09-12 17:09] VITALS: BMI 27.2
[2022-11-25 18:24] LABS: Prostate Specific Antigen 0.131 ng/mL (0.10-4.00)
== END ==
PROVIDERS: PCP Family Medicine; Referring Provider Urology; Visit Provider Urology
DX: C61 Malignant neoplasm of prostate (principal)
CPT/HCPCS: 36415; 84153

== ENCOUNTER → 2022-12-03 09:20 | Outpatient (CLI) | payer MEDICARE, OTHER, SELFPAY ==
[2022-09-12 17:09] VITALS: BMI 27.2
[2022-11-26 10:53] VITALS: BMI 27.2
--- NOTE | 2022-12-03 | DI.ECHO.S_ITS ---
[facility]---------+ [facility] +---------+ : : [address] : : : : [id number] : : : : Phone: [phone]---------+ Echocardiogram Report + + :Name: SYDNIE GÓMEZ Study Date: 12/03/2022 Height: 70 in : :[facility] ReadingLocation: Weight: 172 lb : : Gender: Male BSA: 2.0 m2 : :: 1940 Age: 82 yrs BP: 166/77 mmHg: :Reason For Study: MITRAL REGURGITATION : :Ordering Physician: MIGUELINA, : :MARTHA Performed By: Tasneem Garcia : :Referring: MARTHA MCINTYRE : + + Interpretation Summary The left ventricle is mildly dilated. The ejection fraction is estimated to be 35-40%. Diastolic function could not be accurately assessed due to atrial fibrillation. The right ventricle is mildly dilated. The right ventricular systolic function is normal. There is severe biatrial enlargement. There is severe mitral regurgitation. There is moderate aortic valve sclerosis. There is mild aortic regurgitation. There is mild to moderate tricuspid regurgitation. The right ventricular systolic pressure is estimated to be at least 60 mmHg based on an estimated right atrial pressure of 3 mm Hg. There is a small amount of pericardial fluid near the atria. Compared to the prior study dated 03/24/2022, the mitral regurgitation appears more consistently severe. The right atrium has now increased in size along with an elevation in PA systolic pressure and intermittent hepatic vein flow reversal. Procedure: A two-dimensional transthoracic echocardiogram with color flow and Doppler was performed. The study quality was technically adequate. Comparison is made with the echocardiogram of 03/24/2022. The patient was in atrial fibrillation with heart rates between 46-60 bpm during the exam. Left Ventricle: The left ventricle is mildly dilated. The estimated left ventricular end diastolic volume is 152 ml. Left ventricular wall thickness is mildly increased. The ejection fraction is estimated to be 35-40%. Diastolic function could not be accurately assessed due to atrial fibrillation. Right Ventricle: The right ventricle is mildly dilated. The right ventricular systolic function is normal. Atria: There is severe biatrial enlargement. There is no Doppler evidence for an interatrial shunt. Mitral Valve: The mitral valve leaflets appear mildly thickened, but open well. The mitral valve leaflets are mildly calcified. There is severe mitral regurgitation. Aortic Valve: The aortic valve is trileaflet. The aortic valve is moderately calcified. There is mildly reduced leaflet mobility. There is moderate aortic valve sclerosis. The peak aortic velocity is 1.7 m/sec. The aortic valve mean gradient is 6 mmHg. There is mild aortic regurgitation. Tricuspid Valve: The tricuspid valve is normal in structure and function. There is mild to moderate tricuspid regurgitation. The right ventricular systolic pressure is estimated to be at least 60 mmHg based on an estimated right atrial pressure of 3 mm Hg. Pulmonic Valve: The pulmonic valve leaflets are thin and pliable; valve motion is normal. There is mild pulmonic regurgitation. Great Vessels: The aortic root is normal size. The dimensions of the ascending aorta are normal. The IVC is of normal diameter and collapses greater than 50% with a sniff. This suggests a low right atrial pressure of 3 mm Hg. Pericardium/ Pleura There is a small amount of pericardial fluid near the atria. There is no pleural effusion. MMode/2D Measurements & Calculations LVIDd: 6.1 cm LVOT diam: 2.2 cm LVIDs: 5.3 cm Ao root diam: 3.6 cm FS: 12.8 % asc Aorta Diam: 3.5 cm EPSS: 1.3 cm Ao Arch Diam (Prox Trans): 2.9 cm IVSd: 1.1 cm LVPWd: 0.83 cm LV chamorro. diameter/BSA (cm/m^2): 3.1 LV sys. diameter/BSA (cm/m^2): 2.7 LA A2 area: 29.9 cm2 RA long axis: 6.2 cm LA A4 area: 31.6 cm2 RA area: 25.4 cm2 LA length (vol): 6.7 cm RA vol: 88.7 ml LA vol: 120.2 ml RA : 45.3 ml/m2 LA vol index: 61.4 ml/m2 IVC diam: 1.8 cm RVD1 (basal): 4.1 cm TAPSE: 2.4 cm Doppler Measurements & Calculations Ao V2 max: 173.2 cm/sec LVOT Max Paxton: 96.6 cm/sec Ao V2 mean: 119.9 cm/sec LV V1 max P.7 mmHg Ao max P.0 mmHg LV V1 VTI: 20.4 cm Ao mean P.4 mmHg BARBI(I,D): 2.0 cm2 Ao V2 VTI: 37.4 cm BARBI(V,D): 2.0 cm2 sev ratio: 0.55 BARBI indexed to BSA (cm^2/m^2): 1.0 MV E max paxton: 91.9 cm/sec TR max paxton: 376.8 cm/sec MV A max paxton: 11.5 cm/sec TR max P.8 mmHg MV E/A: 8.0 PA V2 max: 99.3 cm/sec Med Peak E' Paxton: 5.1 cm/sec PA V2 mean: 65.3 cm/sec E/E' med: 18.1 PA mean P.9 mmHg Lat Peak E' Paxton: 4.7 cm/sec PA pr(Accel): 48.2 mmHg E/E' lat: 19.7 E/e' average: 18.9 MV dec time: 0.25 sec MR ERO: 0.22 cm2 MR PISA: 3.5 cm2 SV(LVOT): 74.9 ml MR flow rate: 129.9 cm3/sec MR PISA radius: 0.75 cm Reading Physician:03:36 PM
== END ==
PROVIDERS: PCP Family Medicine; Referring Provider Specialist; Visit Provider Specialist
DX: I08.3 Combined rheumatic disorders of mitral, aortic and tricuspid valves (principal); I25.5 Ischemic cardiomyopathy
CPT/HCPCS: 93306

== ENCOUNTER → 2022-12-17 09:14 | Outpatient (CLI) | payer MEDICARE, OTHER, SELFPAY ==
[2022-11-26 10:53] VITALS: BMI 27.2
[2022-12-17 10:15] LABS: Alanine Aminotransferase 20 IU/L (<50); Albumin 3.5 g/dL (3.5-5.0); Albumin Globulin Ratio 1.2 (1.0-2.8); Alkaline Phosphatase 107 U/L (38-126); Aspartate Aminotransferase 28 IU/L (17-59); BUN Creatinine Ratio 12.3 (6-22); Bilirubin Total 0.8 mg/dL (0.2-1.3); Blood Urea Nitrogen 23 mg/dL (9-20); Calcium 8.8 mg/dL (8.4-10.2); Carbon Dioxide 28 mmol/L (22-32); Chloride 104 mmol/L (98-107); Estimated Glomerular Filt Rate 35 mL/min (>60); Glucose 100 mg/dL (80-110); HEMOLYSIS < 15 (0-50); Magnesium 2.1 mg/dL (1.6-2.3); Potassium 3.7 mmol/L (3.4-5.1); Sodium 139 mmol/L (137-145); Total Protein 6.5 g/dL (6.3-8.2)
[2022-12-17 10:46] LABS: Thyroid Stimulating Hormone 2.49 uIU/mL (0.47-4.68)
[2022-12-20 06:39] LABS: Cholesterol, Total 182 mg/dL (100-199); HDL-Cholesterol 53 mg/dL (>39); HDL-Particle (Total) 21.8 umol/L (>=30.5); Historical Reading Comment: (.); LDL Particle 1232 nmol/L (<1000); LDL Size 21.9 nm (>20.5); LDL-Cholsterol 114 mg/dL (0-99); LP-IR Score <25 (<=45); Small LDL- Particle <90 nmol/L (<=527); Triglycerides 80 mg/dL (0-149)
== END ==
PROVIDERS: PCP Family Medicine; Referring Provider Specialist; Visit Provider Specialist
DX: R79.89 Other specified abnormal findings of blood chemistry (principal); I48.19 Other persistent atrial fibrillation; R06.02 Shortness of breath; E78.00 Pure hypercholesterolemia, unspecified
CPT/HCPCS: 36415; 80053; 80061; 83704; 83735; 84443

== ENCOUNTER → 2022-12-17 13:01 | Outpatient (CLI) | payer MEDICARE, OTHER, SELFPAY ==
[2022-11-26 10:53] VITALS: BMI 27.2
--- NOTE | 2022-12-17 | DI.RAD.S_ITS ---
PROCEDURE: XR LUMBAR SPINE MIN 4V INDICATIONS: LOWER BACK PAIN TECHNIQUE: 5 views of the lumbar spine acquired, including flexion and extension views. COMPARISON: None. FINDINGS: Bones: 5 nonrib-bearing vertebrae are present. Minimal levocurvature. Minimal retrolisthesis of L2 on L3 Straightening of normal lumbar lordosis. There is multilevel facet arthropathy, worse at L4-5 and L5-S1. Multilevel disc height loss with degenerative endplate changes and spurring is present. This is most pronounced at L5-S1 No vertebral body compression fractures. No suspicious bony lesions. Soft tissues: Overlying bowel gas pattern is normal. No suspicious soft tissue calcifications. Flexion/extension: There is limited range of motion, with preserved alignment. IMPRESSION: Multilevel degenerative changes of the lumbar spine with limited range of motion. Dictated by: Hi Beck M.D. on 12/17/2022 at 13:46 Approved by: Hi Beck M.D. on 12/17/2022 at 13:48
== END ==
PROVIDERS: PCP Family Medicine; Referring Provider Orthopaedic Surgery; Visit Provider Orthopaedic Surgery
DX: M54.50 Low back pain, unspecified (principal)
CPT/HCPCS: 72110

== ENCOUNTER → 2022-12-31 10:03 | Outpatient (CLI) | payer MEDICARE, OTHER, SELFPAY ==
[2022-11-26 10:53] VITALS: BMI 27.2
--- NOTE | 2022-12-31 | DI.CT.S_ITS ---
PROCEDURE: CT ANGIO ABDOMEN PELVIS INDICATIONS: WEIGHT LOSS/ANOREXIA/BRIGHT RED BLOOD PER RECTUM TECHNIQUE: After the administration of intravenous contrast, 2.5 mm sections acquired from the diaphragm to the iliac crests. 10 mm maximum intensity projection (MIP) coronal and sagittal reformats were then performed. For radiation dose reduction, the following was used: automated exposure control. COMPARISON: None. FINDINGS: Image quality: Excellent. GI Bleed: Multiphase CTA demonstrates no active extravasation to suggest active gastrointestinal hemorrhage. Lung bases: Moderate right and small left pleural effusions with compressive atelectasis. Interlobular septal thickening. Heart base: Cardiomegaly. Coronary stent. Extravascular tissues: Subtle nodular liver contour. No focal mass. Gallbladder is unremarkable . Biliary system is non dilated. Pancreas enhances normally. Spleen is normal in size and enhancement. No adrenal nodules. Kidneys are small in size with areas of cortical thinning. Symmetric enhancement, without hydronephrosis. Non-opacified bowel loops demonstrate normal wall thickness and caliber. Extensive sigmoid and and scattered colonic diverticulosis, without diverticulitis. Mild mucosal enhancement of the rectum. No pneumatosis, pneumoperitoneum or portal venous gas. Above average colonic stool burden. Trace simple pelvic and perihepatic free fluid. No retroperitoneal or mesenteric adenopathy. No ventral hernias. Radiation seeds in the small prostate. Bladder is under distended, limiting evaluation. Circumferential bladder wall thickening with no contour deforming mass. Small bilateral fat containing inguinal hernias. Bones: No suspicious bony abnormalities. No vertebral body compression fractures. Moderate to marked multilevel degenerative changes of the spine. Abdominal aorta: Abdominal aorta is normal in caliber, without aneurysm. Moderate to marked atherosclerotic calcification. Left common iliac artery is ectatic measuring 1.6 cm (5/119) right common iliac artery is normal in caliber measuring 1.3 cm (5/127). Mesenteric arteries: Celiac, SMA and ROMY are patent with no high-grade stenosis. Mild to moderate scattered atherosclerotic disease. Renal arteries: Bilateral renal arteries are patent with no high-grade stenosis. [id number] scattered atherosclerotic calcification. Left renal artery demonstrates a partially thrombosed, periphery calcified aneurysm in the distal segment measuring 0.9 x 0.7 x 0.9 cm (11/48, ). Venous: Patent portal, splenic and bilateral renal veins. No evidence of deep venous thrombosis. IMPRESSION: 1. No CT evidence of active gastrointestinal hemorrhage. 2. Lack of enteric contrast limits evaluation of the bowel. Within these limitations, extensive sigmoid and colonic diverticulosis, without diverticulitis. Mild inflammation of the rectum. No CT evidence of a mass. Consider correlation with colonoscopy. 3. Moderate right and small left pleural effusions and pulmonary edema in the setting of cardiomegaly suggestive of volume overload/heart failure. Correlate with ECHO. 4. Left renal artery demonstrates a partially thrombosed, peripherally calcified aneurysm in the distal segment measuring 0.9 x 0.7 x 0.9 cm. Recommend a CTA abdomen and pelvis in 1 year. 5. Subtle nodular contour of the liver with no focal mass. Findings may represent cirrhosis. Correlate with LFTs. Dictated by: Minerva Duarte M.D. on 12/31/2022 at 12:31 Approved by: Minerva Duarte M.D. on 12/31/2022 at 12:51
== END ==
PROVIDERS: PCP Family Medicine; Referring Provider Registered Nurse; Visit Provider Registered Nurse
DX: C61 Malignant neoplasm of prostate (principal); I72.2 Aneurysm of renal artery; J90 Pleural effusion, not elsewhere classified; J81.1 Chronic pulmonary edema; K57.30 Diverticulosis of large intestine without perforation or abscess without bleeding; I51.7 Cardiomegaly; N18.32 Chronic kidney disease, stage 3b; R63.4 Abnormal weight loss; R63.0 Anorexia; K62.5 Hemorrhage of anus and rectum; Z12.11 Encounter for screening for malignant neoplasm of colon
CPT/HCPCS: 74174; Q9967

== ENCOUNTER → 2023-01-07 08:51 | Outpatient (CLI) | payer MEDICARE, OTHER, SELFPAY ==
[2022-11-26 10:53] VITALS: BMI 27.2
[2023-01-07 11:05] LABS: Add Manual Diff / Slide Review NO; Basophils Absolute Auto 0 /uL (0-100); Basophils Percent Auto 0.5 % (0-2); Eosinophils Absolute Auto 0 /uL (0-450); Eosinophils Percent Auto 0.6 % (2-4); Hemoglobin 9.7 g/dL (13.5-17.5); Lymphocytes Absolute Auto 900 /uL (1100-4500); Lymphocytes Percent Auto 21.2 % (25-40); Mean Corpuscular HGB Conc 33.4 % (30-36); Mean Corpuscular Hemoglobin 32.2 PG (26-34); Mean Corpuscular Volume 96.4 fL (80-100); Monocytes Absolute Auto 1000 /uL (0-900); Monocytes Percent Auto 24.1 % (3-14); Neutrophils Absolute Auto 2300 /uL (1500-7000); Neutrophils Percent Auto 53.6 % (50-75); Platelet Count 85 X10^3/uL (150-400); Red Blood Cell Count 3.01 X10^6/uL (4.5-5.9); Red Cell Distribution Width 16.8 % (11.6-14.8); White Blood Cell Count 4.3 X10^3/uL (4.5-11.0)
[2023-01-07 11:26] LABS: BUN Creatinine Ratio 14.8 (6-22); Blood Urea Nitrogen 28 mg/dL (9-20); Calcium 8.9 mg/dL (8.4-10.2); Carbon Dioxide 28 mmol/L (22-32); Chloride 104 mmol/L (98-107); Estimated Glomerular Filt Rate 35 mL/min (>60); Glucose 84 mg/dL (80-110); HEMOLYSIS < 15 (0-50); Potassium 3.6 mmol/L (3.4-5.1); Sodium 140 mmol/L (137-145)
== END ==
PROVIDERS: PCP Family Medicine; Referring Provider Physician Assistant; Visit Provider Physician Assistant
DX: I10 Essential (primary) hypertension (principal); I48.19 Other persistent atrial fibrillation; I45.10 Unspecified right bundle-branch block; I25.10 Atherosclerotic heart disease of native coronary artery without angina pectoris; I25.5 Ischemic cardiomyopathy
CPT/HCPCS: 36415; 80048; 85025

== ENCOUNTER 2023-01-22 11:34 | Day surgery (SDC) | payer MEDICARE, OTHER, SELFPAY ==
[2022-11-26 10:53] VITALS: BMI 27.2
[2023-01-22 11:56] VITALS: BP 180/79; PULSE 67; RESP 17; TEMP 36.3; O2SAT 96; BMI 25.3
[2023-01-22] MEDS: LACTATED RINGERS 1,000 ML 42 ML IV (12:12)
--- NOTE | 2023-01-22 12:27 | PM.PREOP ---
Pre-operative Note Interval Note History & Physical reviewed/Exam performed by Physician: Yes Changes to H&P: No
--- NOTE | 2023-01-22 12:28 | PM.OP.EC ---
Operative Date/Time/Diagnoses Date of procedure: 01/22/23 Time of procedure: 12:28 Pre-op diagnosis: rectal bleeding Procedure & Clinicians Study performed: Esophagoduodenoscopy and aborted colonoscopy Same procedure as scheduled: Yes Indications: Rectal bleeding unintentional weight loss Surgeon: Clyde Nieves Procedure Notes Procedure in detail: The history and physical was performed/updated and the patient is ASA class is 3. The procedure was discussed in detail with the patient. Potential risks complications including infection, bleeding, missed diagnosis, perforation, need for surgery, and were explained. Their questions were answered and informed consent was obtained. Patient placed in left lateral decubitus position. Time out was performed. Procedural sedation was administered by Anesthesia. A bite block was placed. the scope was inserted into the mouth and advanced through the esophagus and into the stomach. The stomach was without masses, ulcers or gastritis. The pylorus and duodenum were intubated normal. The scope was retroflexed within the stomach. The scope was withdrawn into the esophagus the Z line was seen at 40 cm from the incisions. There was no Griffith's esophagitis, esophageal masses or strictures. Stomach was desufflated and scope removed. Examination began with a thorough inspection of the perianal area there was no evidence of fissures, fistulae, external hemorrhoids or cutaneous malignancy. The colonoscopy scope was then placed into the anal canal and was advanced forward. The quality of the preparation was inadequate for safe and accurate performance and the colonoscopy was aborted. Specimen(s): none sent Impression: Normal EGD. Incomplete colonoscopy result of inadequate prep Post-procedure Plan for aftercare: Repeat colonoscopy with alternative prep Disposition: same day surgery
[2023-01-22 12:48] VITALS: BP 156/78; PULSE 66; RESP 16; TEMP 36.6; O2SAT 97
[2023-01-22 12:52] VITALS: BP 162/83; PULSE 66; RESP 18; O2SAT 97
[2023-01-22 12:59] VITALS: BP 151/73; PULSE 66; RESP 14; O2SAT 97
[2023-01-22 13:03] VITALS: BP 140/74; PULSE 66; RESP 18; TEMP 36.2; O2SAT 97
[2023-01-22 13:08] VITALS: BP 165/72; PULSE 69; RESP 16; TEMP 36.2; O2SAT 96
--- NOTE | 2023-01-22 13:28 | SUR.PHASEII ---
pt was ready to be discharged then he wanted to see Dr Nieves. Informed Dr. Nieves that pt wanted to see him. He said he will see the pt.
== END 2023-01-22 13:35 | disposition home or self-care (01) ==
PROVIDERS: PCP Family Medicine; Referring Provider Surgery; Visit Provider Surgery
PROC: 0DJ08ZZ Inspection of Upper Intestinal Tract, Via Natural or Artificial Opening Endoscopic (ICD-10-PCS; CPT 43235; principal; 2023-01-22 12:30)
PROC: 0DJD8ZZ Inspection of Lower Intestinal Tract, Via Natural or Artificial Opening Endoscopic (ICD-10-PCS; CPT 45378; 2023-01-22 12:30)
DX: K62.5 Hemorrhage of anus and rectum (principal); Z53.09 Procedure and treatment not carried out because of other contraindication; R63.4 Abnormal weight loss; I48.91 Unspecified atrial fibrillation; Z79.01 Long term (current) use of anticoagulants; Z95.0 Presence of cardiac pacemaker
CPT/HCPCS: 45378; 43235; J2704

== ENCOUNTER → 2023-03-09 15:39 | Outpatient (CLI) | payer MEDICARE, OTHER, SELFPAY ==
[2022-11-26 10:53] VITALS: BMI 27.2
[2023-03-09 17:14] LABS: Vitamin D 25 Hydroxy (D3) 81.8 ng/mL (30.0-100.0)
[2023-03-09 17:27] LABS: Prostate Specific Antigen < 0.064 ng/mL (0.10-4.00)
== END ==
PROVIDERS: PCP Family Medicine; Referring Provider Urology; Visit Provider Urology
DX: M85.80 Other specified disorders of bone density and structure, unspecified site (principal); C61 Malignant neoplasm of prostate
CPT/HCPCS: 36415; 82306; 84153

== ENCOUNTER → 2023-04-20 13:52 | Outpatient (CLI) | payer MEDICARE, OTHER, SELFPAY ==
[2022-11-26 10:53] VITALS: BMI 27.2
[2023-04-20 14:56] LABS: Add Manual Diff / Slide Review NO; Basophils Absolute Auto 0 /uL (0-100); Basophils Percent Auto 0.5 % (0-2); Eosinophils Absolute Auto 100 /uL (0-450); Eosinophils Percent Auto 2.1 % (2-4); Hematocrit 24.8 % (41-53); Hemoglobin 8.6 g/dL (13.5-17.5); Lymphocytes Absolute Auto 1000 /uL (1100-4500); Lymphocytes Percent Auto 14.7 % (25-40); Mean Corpuscular HGB Conc 34.6 % (30-36); Mean Corpuscular Hemoglobin 32.8 PG (26-34); Mean Corpuscular Volume 94.9 fL (80-100); Monocytes Absolute Auto 1900 /uL (0-900); Monocytes Percent Auto 27.8 % (3-14); Neutrophils Absolute Auto 3800 /uL (1500-7000); Neutrophils Percent Auto 54.9 % (50-75); Platelet Count 106 X10^3/uL (150-400); Red Blood Cell Count 2.62 X10^6/uL (4.5-5.9); Red Cell Distribution Width 13.7 % (11.6-14.8)
[2023-04-20 15:11] LABS: Alanine Aminotransferase 33 IU/L (<50); Albumin 3.9 g/dL (3.5-5.0); Albumin Globulin Ratio 1.2 (1.0-2.8); Alkaline Phosphatase 78 U/L (38-126); Aspartate Aminotransferase 47 IU/L (17-59); Bilirubin Total 0.5 mg/dL (0.2-1.3); Blood Urea Nitrogen 34 mg/dL (9-20); Calcium 8.7 mg/dL (8.4-10.2); Carbon Dioxide 24 mmol/L (22-32); Chloride 101 mmol/L (98-107); Estimated Glomerular Filt Rate 26 mL/min (>60); Globulin 3.3 g/dL (1.7-4.1); Glucose 101 mg/dL (80-110); HEMOLYSIS < 15 (0-50); Magnesium 2.2 mg/dL (1.6-2.3); Potassium 3.7 mmol/L (3.4-5.1); Sodium 137 mmol/L (137-145); Total Protein 7.2 g/dL (6.3-8.2)
== END ==
PROVIDERS: PCP Family Medicine; Referring Provider Specialist; Visit Provider Specialist
DX: I48.19 Other persistent atrial fibrillation (principal)
CPT/HCPCS: 36415; 80053; 83735; 85025

== ENCOUNTER → 2023-04-27 13:32 | Outpatient (CLI) | payer MEDICARE, OTHER, SELFPAY ==
[2022-11-26 10:53] VITALS: BMI 27.2
[2023-04-27 14:55] LABS: Add Manual Diff / Slide Review NO; Basophils Absolute Auto 0 /uL (0-100); Basophils Percent Auto 0.4 % (0-2); Eosinophils Absolute Auto 200 /uL (0-450); Eosinophils Percent Auto 3.4 % (2-4); Hematocrit 26.4 % (41-53); Lymphocytes Absolute Auto 1000 /uL (1100-4500); Lymphocytes Percent Auto 14.9 % (25-40); Mean Corpuscular Hemoglobin 33.1 PG (26-34); Mean Corpuscular Volume 97.3 fL (80-100); Monocytes Absolute Auto 1600 /uL (0-900); Monocytes Percent Auto 24.6 % (3-14); Neutrophils Absolute Auto 3600 /uL (1500-7000); Neutrophils Percent Auto 56.7 % (50-75); Platelet Count 131 X10^3/uL (150-400); Red Blood Cell Count 2.71 X10^6/uL (4.5-5.9); Red Cell Distribution Width 14.1 % (11.6-14.8); White Blood Cell Count 6.4 X10^3/uL (4.5-11.0)
[2023-04-27 15:25] LABS: Alanine Aminotransferase 29 IU/L (<50); Albumin 3.9 g/dL (3.5-5.0); Albumin Globulin Ratio 1.2 (1.0-2.8); Alkaline Phosphatase 79 U/L (38-126); Aspartate Aminotransferase 38 IU/L (17-59); Bilirubin Total 0.6 mg/dL (0.2-1.3); Blood Urea Nitrogen 30 mg/dL (9-20); Calcium 8.9 mg/dL (8.4-10.2); Carbon Dioxide 25 mmol/L (22-32); Chloride 103 mmol/L (98-107); Estimated Glomerular Filt Rate 33 mL/min (>60); Globulin 3.3 g/dL (1.7-4.1); Glucose 78 mg/dL (80-110); HEMOLYSIS < 15 (0-50); Magnesium 2.3 mg/dL (1.6-2.3); Potassium 4.1 mmol/L (3.4-5.1); Sodium 138 mmol/L (137-145); Total Protein 7.2 g/dL (6.3-8.2)
== END ==
PROVIDERS: PCP Family Medicine; Referring Provider Specialist; Visit Provider Specialist
DX: I48.19 Other persistent atrial fibrillation (principal)
CPT/HCPCS: 36415; 80053; 83735; 85025

== ENCOUNTER → 2023-05-07 14:36 | Outpatient (CLI) | payer MEDICARE, OTHER, SELFPAY ==
[2022-11-26 10:53] VITALS: BMI 27.2
[2023-05-07 15:30] LABS: Add Manual Diff / Slide Review NO; Basophils Absolute Auto 0 /uL (0-100); Basophils Percent Auto 0.5 % (0-2); Eosinophils Absolute Auto 100 /uL (0-450); Eosinophils Percent Auto 2.7 % (2-4); Hematocrit 27.1 % (41-53); Hemoglobin 9.4 g/dL (13.5-17.5); Lymphocytes Absolute Auto 1300 /uL (1100-4500); Lymphocytes Percent Auto 24.2 % (25-40); Mean Corpuscular HGB Conc 34.7 % (30-36); Mean Corpuscular Hemoglobin 33.4 PG (26-34); Monocytes Absolute Auto 1000 /uL (0-900); Monocytes Percent Auto 18.4 % (3-14); Neutrophils Absolute Auto 2900 /uL (1500-7000); Neutrophils Percent Auto 54.2 % (50-75); Platelet Count 131 X10^3/uL (150-400); Red Blood Cell Count 2.82 X10^6/uL (4.5-5.9); Red Cell Distribution Width 13.8 % (11.6-14.8); White Blood Cell Count 5.4 X10^3/uL (4.5-11.0)
[2023-05-07 16:58] LABS: Alanine Aminotransferase 21 IU/L (<50); Albumin 4.1 g/dL (3.5-5.0); Albumin Globulin Ratio 1.2 (1.0-2.8); Alkaline Phosphatase 88 U/L (38-126); Aspartate Aminotransferase 45 IU/L (17-59); BUN Creatinine Ratio 16.8 (6-22); Bilirubin Total 0.5 mg/dL (0.2-1.3); Blood Urea Nitrogen 31 mg/dL (9-20); Calcium 9.1 mg/dL (8.4-10.2); Carbon Dioxide 26 mmol/L (22-32); Chloride 108 mmol/L (98-107); Estimated Glomerular Filt Rate 36 mL/min (>60); Globulin 3.4 g/dL (1.7-4.1); Glucose 88 mg/dL (80-110); HEMOLYSIS < 15 (0-50); Magnesium 2.4 mg/dL (1.6-2.3); Potassium 4.9 mmol/L (3.4-5.1); Sodium 140 mmol/L (137-145); Total Protein 7.5 g/dL (6.3-8.2)
== END ==
PROVIDERS: Specialist; PCP Family Medicine; Referring Provider Family Medicine; Visit Provider Family Medicine
DX: N18.32 Chronic kidney disease, stage 3b (principal); I48.19 Other persistent atrial fibrillation
CPT/HCPCS: 36415; 80053; 83735; 85025

== ENCOUNTER → 2023-06-08 16:09 | Outpatient (CLI) | payer MEDICARE, OTHER, SELFPAY ==
[2022-11-26 10:53] VITALS: BMI 27.2
[2023-06-08 18:15] LABS: Prostate Specific Antigen < 0.064 ng/mL (0.10-4.00)
== END ==
LOC: LAB 16:11
PROVIDERS: PCP Family Medicine; Referring Provider Urology; Visit Provider Urology
DX: R97.20 Elevated prostate specific antigen [PSA] (principal)
CPT/HCPCS: 36415; 84153

== ENCOUNTER → 2023-07-02 10:43 | Outpatient (CLI) | payer MEDICARE, OTHER, SELFPAY ==
[2022-11-26 10:53] VITALS: BMI 27.2
--- NOTE | 2023-07-02 10:45 | DI.ECHO.S_ITS ---
[facility]+ [facility] : : [address] : : [place] : : [id number] : : Phone: [phone] Echocardiogram Report + + :Name: SYDNIE GÓMEZ Study Date: 07/02/2023 Height: 66 in : :Hospital ReadingLocation: Weight: 172 lb : : Gender: Male BSA: 1.9 m2 : :: 1940 Age: 83 yrs BP: 176/85 mmHg: :Reason For Study: ISCHEMIC CARDIOMYOPATHY : :Ordering Physician: MIGUELINA, : :MARTHA Performed By: Jameson Hirsch : :Referring: MARTHA MCINTYRE : + + Interpretation Summary Left ventricular systolic function is moderately reduced with an estimated ejection fraction of 40 to 45% with severe hypokinesis to akinesis of the inferior and inferoposterior segments that remains unchanged but overall contractility appears mildly improved. Left ventricular size is mildly increased but similar to the previous exam. There is a probable pseudonormalized pattern of diastolic filling with probable elevated filling pressures, likely similar to the previous exam, perhaps slightly progressive. The right ventricle appears normal and slightly smaller compared to the previous study. Right ventricular systolic pressure is estimated at 38 mmHg with a CVP of 3 mmHg and is likely significantly lower compared to the previous exam. There is severe left atrial enlargement and mild right atrial enlargement with both measuring smaller compared to the previous study. There is probable moderate to severe mitral regurgitation that is slightly less prominent compared to the previous study. There is trace tricuspid regurgitation that is significantly improved. There is aortic valve sclerosis without stenosis that is unchanged. The previously seen small pericardial effusion is no longer evident. The patient was in sinus rhythm at 61 to 75 bpm, replacing atrial fibrillation on the previous exam. Procedure: A two-dimensional transthoracic echocardiogram with color flow and Doppler was performed. The study quality was technically adequate. Comparison is made with the echocardiogram of 12/03/2022. The patient was in sinus rhythm with heart rates between 61-75 bpm during the exam. This is new, replacing atrial fibrillation compared to the previous study. Left Ventricle: The left ventricle is mild-moderately dilated. The estimated left ventricular end diastolic volume is 161 mL compared to the previous 152 ml. There is mild concentric left ventricular hypertrophy. The ejection fraction is estimated to be 40-45%. Left ventricular systolic function is moderately reduced. There is severe hypokinesis to akinesis of the inferior and inferoposterior segments that remains unchanged. Overall contractility appears mildly improved. Diastolic parameters suggest a pseudonormalization pattern, consistent with probable elevated filling pressures. Right Ventricle: There is a pacemaker lead in the right ventricle. The right ventricle is normal in size and function. This is slightly smaller compared to the previous study. Atria: The left atrium is severely dilated. Both atria have mildly decreased in size since the prior echo exam. The right atrium is mildly dilated. There is a catheter/pacemaker lead seen in the right atrium. The interatrial septum grossly appears intact with no obvious evidence for an atrial septal defect. Mitral Valve: There is mild to moderate mitral annular calcification. There is no mitral valve stenosis. There is moderate to severe mitral regurgitation. This is slightly less prominent compared to the previous study. Aortic Valve: The aortic valve is trileaflet. The aortic valve is moderately calcified. There is mildly reduced leaflet mobility. There is no hemodynamically significant valvular aortic stenosis. No aortic regurgitation is present. Tricuspid Valve: The tricuspid valve is normal in structure and function. There is no tricuspid stenosis. There is trace tricuspid regurgitation. The right ventricular systolic pressure is estimated to be at least 38 mmHg based on an estimated right atrial pressure of 3 mm Hg. This is significantly improved compared to the previous study. Pulmonic Valve: The pulmonic valve is not well visualized. There is no pulmonic valvular stenosis. There is trace pulmonic regurgitation. Great Vessels: The aortic root is normal size. The dimensions of the ascending aorta are normal. The IVC is of normal diameter and collapses greater than 50% with a sniff. This suggests a low right atrial pressure of 3 mm Hg. Pericardium/ Pleura There is no pericardial effusion. The previously seen small pericardial effusion around the atria is no longer evident. There is no pleural effusion. MMode/2D Measurements & Calculations LVIDd: 6.4 cm LVOT diam: 2.3 cm LVIDs: 5.3 cm Ao root diam: 3.4 cm FS: 18.1 % asc Aorta Diam: 3.3 cm IVSd: 1.6 cm Ao Arch Diam (Prox Trans): 2.9 cm LVPWd: 1.1 cm LV chamorro. diameter/BSA (cm/m^2): 3.4 LV sys. diameter/BSA (cm/m^2): 2.8 LA A2 area: 25.5 cm2 RA long axis: 4.7 cm LA A4 area: 26.1 cm2 RA area: 17.9 cm2 LA length (vol): 6.0 cm RA vol: 58.6 ml LA vol: 94.7 ml RA : 31.2 ml/m2 LA vol index: 50.5 ml/m2 IVC diam: 1.6 cm RVD1 (basal): 3.8 cm RVD2 (mid): 3.0 cm TAPSE: 2.4 cm Doppler Measurements & Calculations Ao V2 max: 187.6 cm/sec LVOT Max Paxton: 103.6 cm/sec Ao V2 mean: 136.8 cm/sec LV V1 max P.3 mmHg Ao max P.1 mmHg LV V1 VTI: 23.6 cm Ao mean P.2 mmHg BARBI(I,D): 2.2 cm2 Ao V2 VTI: 42.2 cm BARBI(V,D): 2.2 cm2 sev ratio: 0.56 ABRBI indexed to BSA (cm^2/m^2): 1.2 MV E max paxton: 77.4 cm/sec TR max paxton: 295.7 cm/sec MV A max paxton: 64.5 cm/sec TR max P.0 mmHg MV E/A: 1.2 PA V2 max: 105.7 cm/sec Med Peak E' Paxton: 3.5 cm/sec PA V2 mean: 64.2 cm/sec E/E' med: 22.1 PA mean P.9 mmHg Lat Peak E' Paxton: 3.3 cm/sec PA pr(Accel): 51.6 mmHg E/E' lat: 23.2 E/e' average: 22.7 MV dec time: 0.21 sec MR ERO: 0.39 cm2 MR PISA: 7.1 cm2 SV(LVOT): 94.5 ml MR flow rate: 260.1 cm3/sec MR PISA radius: 1.1 cm Reading Physician:05:05 PM
== END ==
LOC: ECHO 10:44
PROVIDERS: PCP Family Medicine; Referring Provider Specialist; Visit Provider Specialist
DX: I34.81 Nonrheumatic mitral (valve) annulus calcification (principal); I34.0 Nonrheumatic mitral (valve) insufficiency; I25.5 Ischemic cardiomyopathy; Z95.0 Presence of cardiac pacemaker
CPT/HCPCS: 93306

== ENCOUNTER → 2023-07-08 16:54 | Outpatient (CLI) | payer MEDICARE, OTHER, SELFPAY ==
[2022-11-26 10:53] VITALS: BMI 27.2
[2023-07-08 17:55] LABS: Add Manual Diff / Slide Review NO; Basophils Absolute Auto 0 /uL (0-100); Basophils Percent Auto 0.9 % (0-2); Eosinophils Absolute Auto 100 /uL (0-450); Eosinophils Percent Auto 1.2 % (2-4); Hematocrit 27.5 % (41-53); Hemoglobin 9.3 g/dL (13.5-17.5); Lymphocytes Absolute Auto 1000 /uL (1100-4500); Lymphocytes Percent Auto 23.8 % (25-40); Mean Corpuscular HGB Conc 33.9 % (30-36); Mean Corpuscular Hemoglobin 33.4 PG (26-34); Mean Corpuscular Volume 98.5 fL (80-100); Monocytes Absolute Auto 800 /uL (0-900); Monocytes Percent Auto 20.3 % (3-14); Neutrophils Absolute Auto 2300 /uL (1500-7000); Neutrophils Percent Auto 53.8 % (50-75); Platelet Count 124 X10^3/uL (150-400); Red Blood Cell Count 2.79 X10^6/uL (4.5-5.9); Red Cell Distribution Width 12.8 % (11.6-14.8); White Blood Cell Count 4.2 X10^3/uL (4.5-11.0)
[2023-07-08 18:01] LABS: HEMOLYSIS < 15 (0-50); Potassium 4.2 mmol/L (3.4-5.1)
[2023-07-08 18:04] LABS: Alanine Aminotransferase 23 IU/L (<50); Albumin 4.3 g/dL (3.5-5.0); Albumin Globulin Ratio 1.4 (1.0-2.8); Alkaline Phosphatase 73 U/L (38-126); Aspartate Aminotransferase 32 IU/L (17-59); BUN Creatinine Ratio 15.2 (6-22); Bilirubin Total 0.6 mg/dL (0.2-1.3); Blood Urea Nitrogen 28 mg/dL (9-20); C-Reactive Protein Quant 1.5 mg/dL (<1.0); Calcium 8.9 mg/dL (8.4-10.2); Carbon Dioxide 27 mmol/L (22-32); Chloride 109 mmol/L (98-107); Estimated Glomerular Filt Rate 36 mL/min (>60); Globulin 3.1 g/dL (1.7-4.1); Glucose 88 mg/dL (80-110); Sodium 141 mmol/L (137-145); Total Protein 7.4 g/dL (6.3-8.2)
[2023-07-08 18:16] LABS: Erythrocyte Sedimentation Rate 45 MM/HR (0-15)
== END ==
PROVIDERS: PCP Family Medicine; Referring Provider Family Medicine; Visit Provider Family Medicine
DX: R10.32 Left lower quadrant pain (principal)
CPT/HCPCS: 36415; 80053; 85025; 85651; 86140

== ENCOUNTER → 2023-07-21 10:32 | Outpatient (CLI) | payer MEDICARE, OTHER, SELFPAY ==
[2022-11-26 10:53] VITALS: BMI 27.2
--- NOTE | 2023-07-21 10:34 | DI.CT.S_ITS ---
PROCEDURE: CT ABDOMEN PELVIS W CON INDICATIONS: Left lower quadrant pain TECHNIQUE: After the administration of intravenous contrast, axial sections acquired from the lung bases to the pubic symphysis. Coronal and sagittal reformats were performed. For radiation dose reduction, the following was used: automated exposure control, adjustment of mA and/or kV according to patient size. COMPARISON: [facility], CT, ABDOMEN/PELVIS WITH CONTRAST, 03/06/2011, 14:15. FINDINGS: Image quality: Diagnostic. Lower Chest: Small bilateral pleural effusions with compressive atelectasis. Cardiomegaly with left atrial enlargement. Left ventricular hypertrophy. Partially visualized pacer wires. Mild interlobular septal thickening. ABDOMEN: Liver: No solid mass. Gallbladder: No radiopaque gallstones or wall thickening. Biliary ducts: No biliary dilation. Pancreas: No ductal dilation. Spleen: Size is within normal limits. Adrenal Glands: No adrenal nodules. Kidneys and Ureters: No hydronephrosis. No solid mass. No complex renal cystic lesion which requires follow up. Stomach and Bowel: Normal colonic caliber, without significant wall thickening. Normal appendix (3/28). Extensive sigmoid and scattered colonic diverticulosis, without diverticulitis. Above average colonic stool burden. Peritoneum: No abnormal intraperitoneal fluid. No free air. Ventral Wall: No significant ventral hernia. Abdominal Nodes: No retroperitoneal or mesenteric adenopathy by size criteria. Vessels: Aorta and inferior vena cava are normal in size. 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 Moderate calcification of the abdominal aorta and iliac vessels. Proximal mesenteric vessels are patent. With mild calcification of the bilateral common femoral vessels. PELVIS: Pelvic Organs: Prostate seed implants. Bladder: Circumferential bladder wall thickening with mild mucosal hyperenhancement. Mild perivesicular inflammation. Pelvic Nodes: No enlarged lymph nodes. Miscellaneous: Small left fat containing inguinal hernia. Bones: No aggressive osseous abnormality. No acute fracture. Severe multilevel degenerative changes of the spine. IMPRESSION: 1. Mucosal hyperenhancement of the bladder with circumferential bladder wall thickening which may reflect cystitis of infectious or inflammatory etiology. Correlate with urine analysis and culture. 2. Extensive sigmoid and scattered colonic diverticulosis, without diverticulitis. 3. Above average colonic stool burden which may correlate with constipation. 4. Small bilateral pleural effusions with mild pulmonary edema. Cardiomegaly. Correlate with recent ECHO dated July 02, 2023. Dictated by: Minerva Duarte M.D. on 07/21/2023 at 16:46 Approved by: Minerva Duarte M.D. on 07/21/2023 at 16:52
== END ==
PROVIDERS: PCP Family Medicine; Referring Provider Family Medicine; Visit Provider Family Medicine
DX: J90 Pleural effusion, not elsewhere classified (principal); R10.32 Left lower quadrant pain; K57.30 Diverticulosis of large intestine without perforation or abscess without bleeding; I51.7 Cardiomegaly; K40.90 Unilateral inguinal hernia, without obstruction or gangrene, not specified as recurrent
CPT/HCPCS: 74177; Q9967

== ENCOUNTER → 2023-07-26 08:21 | Outpatient (CLI) | payer MEDICARE, OTHER, SELFPAY ==
[2022-11-26 10:53] VITALS: BMI 27.2
[2023-07-26 10:32] LABS: Add Manual Diff / Slide Review NO; Basophils Absolute Auto 0 /uL (0-100); Basophils Percent Auto 0.7 % (0-2); Eosinophils Absolute Auto 100 /uL (0-450); Eosinophils Percent Auto 1.6 % (2-4); Hematocrit 27.6 % (41-53); Hemoglobin 9.3 g/dL (13.5-17.5); Lymphocytes Absolute Auto 1100 /uL (1100-4500); Lymphocytes Percent Auto 22.8 % (25-40); Mean Corpuscular HGB Conc 33.9 % (30-36); Mean Corpuscular Hemoglobin 32.6 PG (26-34); Mean Corpuscular Volume 96.1 fL (80-100); Monocytes Absolute Auto 1100 /uL (0-900); Monocytes Percent Auto 24.5 % (3-14); Neutrophils Absolute Auto 2300 /uL (1500-7000); Neutrophils Percent Auto 50.4 % (50-75); Platelet Count 119 X10^3/uL (150-400); Red Blood Cell Count 2.87 X10^6/uL (4.5-5.9); Red Cell Distribution Width 13.5 % (11.6-14.8); White Blood Cell Count 4.6 X10^3/uL (4.5-11.0)
[2023-07-26 10:56] LABS: Alanine Aminotransferase 24 IU/L (<50); Albumin 4.3 g/dL (3.5-5.0); Albumin Globulin Ratio 1.6 (1.0-2.8); Alkaline Phosphatase 79 U/L (38-126); Aspartate Aminotransferase 45 IU/L (17-59); BUN Creatinine Ratio 15.3 (6-22); Bilirubin Total 0.5 mg/dL (0.2-1.3); Blood Urea Nitrogen 30 mg/dL (9-20); Carbon Dioxide 28 mmol/L (22-32); Chloride 107 mmol/L (98-107); Estimated Glomerular Filt Rate 33 mL/min (>60); Globulin 2.7 g/dL (1.7-4.1); Glucose 91 mg/dL (80-110); HEMOLYSIS < 15 (0-50); Magnesium 2.6 mg/dL (1.6-2.3); Sodium 141 mmol/L (137-145)
== END ==
PROVIDERS: PCP Family Medicine; Referring Provider Specialist; Visit Provider Specialist
DX: N18.32 Chronic kidney disease, stage 3b (principal); I25.5 Ischemic cardiomyopathy; I48.19 Other persistent atrial fibrillation
CPT/HCPCS: 36415; 80053; 83735; 85025

== ENCOUNTER → 2023-08-16 10:50 | Outpatient (CLI) | payer MEDICARE, OTHER, SELFPAY ==
[2022-11-26 10:53] VITALS: BMI 27.2
[2023-08-16 12:02] LABS: Add Manual Diff / Slide Review NO; Basophils Absolute Auto 0 /uL (0-100); Basophils Percent Auto 0.5 % (0-2); Eosinophils Absolute Auto 100 /uL (0-450); Eosinophils Percent Auto 1.3 % (2-4); Hematocrit 27.7 % (41-53); Hemoglobin 9.3 g/dL (13.5-17.5); Lymphocytes Absolute Auto 1000 /uL (1100-4500); Lymphocytes Percent Auto 24.2 % (25-40); Mean Corpuscular HGB Conc 33.5 % (30-36); Mean Corpuscular Hemoglobin 32.1 PG (26-34); Mean Corpuscular Volume 95.8 fL (80-100); Monocytes Absolute Auto 1000 /uL (0-900); Neutrophils Absolute Auto 2200 /uL (1500-7000); Platelet Count 95 X10^3/uL (150-400); Red Blood Cell Count 2.89 X10^6/uL (4.5-5.9); Red Cell Distribution Width 14.2 % (11.6-14.8); White Blood Cell Count 4.2 X10^3/uL (4.5-11.0)
[2023-08-16 12:20] LABS: Iron 87 ug/dL (49-181)
[2023-08-16 12:24] LABS: Alanine Aminotransferase 19 IU/L (<50); Albumin 4.5 g/dL (3.5-5.0); Albumin Globulin Ratio 1.6 (1.0-2.8); Alkaline Phosphatase 65 U/L (38-126); Aspartate Aminotransferase 34 IU/L (17-59); BUN Creatinine Ratio 15.6 (6-22); Bilirubin Total 0.5 mg/dL (0.2-1.3); Blood Urea Nitrogen 35 mg/dL (9-20); Calcium 8.9 mg/dL (8.4-10.2); Carbon Dioxide 26 mmol/L (22-32); Chloride 109 mmol/L (98-107); Estimated Glomerular Filt Rate 28 mL/min (>60); Globulin 2.9 g/dL (1.7-4.1); Glucose 101 mg/dL (80-110); HEMOLYSIS < 15 (0-50); Magnesium 2.6 mg/dL (1.6-2.3); Potassium 4.2 mmol/L (3.4-5.1); Sodium 139 mmol/L (137-145); Total Protein 7.4 g/dL (6.3-8.2)
[2023-08-16 12:57] LABS: Ferritin 332 ng/mL (18-464)
== END ==
LOC: LAB 10:52
PROVIDERS: PCP Family Medicine; Referring Provider Specialist; Visit Provider Nurse Practitioner Gerontology
DX: I12.9 Hypertensive chronic kidney disease with stage 1 through stage 4 chronic kidney disease, or unspecified chronic kidney disease (principal); N18.30 Chronic kidney disease, stage 3 unspecified; D63.1 Anemia in chronic kidney disease; E78.00 Pure hypercholesterolemia, unspecified; I48.19 Other persistent atrial fibrillation
CPT/HCPCS: 36415; 80053; 82728; 83540; 83735; 85025

== ENCOUNTER → 2023-09-10 15:53 | Outpatient (CLI) | payer MEDICARE, OTHER, SELFPAY ==
[2022-11-26 10:53] VITALS: BMI 27.2
[2023-09-10 18:32] LABS: Prostate Specific Antigen < 0.064 ng/mL (0.10-4.00)
== END ==
PROVIDERS: PCP Family Medicine; Referring Provider Urology; Visit Provider Urology
DX: C61 Malignant neoplasm of prostate (principal)
CPT/HCPCS: 84153

== ENCOUNTER → 2023-09-14 09:45 | Outpatient (CLI) | payer MEDICARE, OTHER, SELFPAY ==
[2022-11-26 10:53] VITALS: BMI 27.2
--- NOTE | 2023-09-14 09:46 | DI.RAD.S_ITS ---
PROCEDURE: XR DEXA AXIAL SKELETON INDICATIONS: Osteopenia/androgen deprivation therapy COMPARISON: [facility], , XR DEXA AXIAL SKELETON, 09/25/2021, 13:06. FINDINGS: Lumbar Spine: L1-L2 Bone mineral density 1.198 g/cm2, T score 2.0. Left Hip: Bone mineral density 0.887 g/cm2, T score -0.5, -6.7% *. Left Femoral Neck: Bone mineral density 0.771 g/cm2, T score -0.7. Right Hip: Bone mineral density 0.900 g/cm2, T score -0.3, -6.1%*. Right Femoral Neck: Bone mineral density 0.758 g/cm2, T score -0.8. Fracture Risk Calculation (when applicable): 10-year fracture risk of a major osteoporotic fracture 6.5% and of a hip fracture 2.3%. (T score greater or equal to -1.0 to: NORMAL) (T score from -1.1 to -2.4: OSTEOPENIA) (T score less than or equal to -2.5: OSTEOPOROSIS) IMPRESSION: Bone mineral density is within normal limits. There is significant interval decrease in bone mineral density at the left total hip and right total hip. Follow-up guidelines as follows: Osteoporosis: Consider a repeat DEXA and Vertebral Fracture Assessment (VFA) exam in 2 years or sooner if medically necessary, to reassess this patient's status. Osteopenia: Consider a repeat DEXA in 2-3 years to reassess this patient's status, or if there is a new clinical indication. Normal: Consider a repeat DEXA in 5 years or sooner, or if there is a new clinical indication. All treatment decisions require clinical judgment and consideration of individual patient factors, including patient preferences, comorbidities, previous drug use, risk factors not captured in the FRAX model (e.g., frailty, falls, vitamin D deficiency, increased bone turnover, interval significant decline in bone density ) and possible under- or over-estimation of fracture risk by FRAX. In addition, the NOF Guide recommends that FDA-approved medical therapies be considered in postmenopausal women and men age >= 50 years with a: * Hip or vertebral (clinical or morphometric) fracture * T-score of <=-2.5 at the spine or hip * Ten-year fracture probability by FRAX of >= 3% for hip fracture or >=20% for major osteoporotic fracture. People with diagnosed cases of osteoporosis or at high risk for fracture should have regular bone mineral density tests. For patients eligible for Medicare, routine testing is allowed once every 2 years. The testing frequency can be increased to one year for patients who have rapidly progressing disease, those who are receiving or discontinuing medical therapy to restore bone mass, or have additional risk factors. Dictated by: Kwame Barreto M.D. on 09/14/2023 at 13:20 Approved by: Kwame Barreto M.D. on 09/14/2023 at 13:23
== END ==
PROVIDERS: PCP Family Medicine; Referring Provider Urology; Visit Provider Urology
DX: Z79.818 Long term (current) use of other agents affecting estrogen receptors and estrogen levels (principal); M85.80 Other specified disorders of bone density and structure, unspecified site; Z92.3 Personal history of irradiation
CPT/HCPCS: 77080

== ENCOUNTER → 2023-10-21 08:10 | Outpatient (CLI) | payer MEDICARE, OTHER, SELFPAY ==
[2022-11-26 10:53] VITALS: BMI 27.2
[2023-10-21 09:03] LABS: Hematocrit 29.6 % (41-53); Mean Corpuscular HGB Conc 33.8 % (30-36); Mean Corpuscular Hemoglobin 32.1 PG (26-34); Platelet Count 91 X10^3/uL (150-400); Red Blood Cell Count 3.11 X10^6/uL (4.5-5.9); Red Cell Distribution Width 15.8 % (11.6-14.8); White Blood Cell Count 4.7 X10^3/uL (4.5-11.0)
[2023-10-21 09:32] LABS: Alanine Aminotransferase 43 IU/L (<50); Albumin 4.1 g/dL (3.5-5.0); Albumin Globulin Ratio 1.4 (1.0-2.8); Alkaline Phosphatase 82 U/L (38-126); Aspartate Aminotransferase 47 IU/L (17-59); BUN Creatinine Ratio 13.4 (6-22); Bilirubin Total 0.7 mg/dL (0.2-1.3); Blood Urea Nitrogen 30 mg/dL (9-20); Calcium 8.9 mg/dL (8.4-10.2); Carbon Dioxide 24 mmol/L (22-32); Chloride 110 mmol/L (98-107); Estimated Glomerular Filt Rate 28 mL/min (>60); Glucose 90 mg/dL (80-110); HEMOLYSIS < 15 (0-50); Magnesium 2.3 mg/dL (1.6-2.3); Potassium 4.2 mmol/L (3.4-5.1); Sodium 141 mmol/L (137-145); Total Protein 7.1 g/dL (6.3-8.2)
== END ==
PROVIDERS: PCP Family Medicine; Referring Provider Specialist; Visit Provider Specialist
DX: E78.00 Pure hypercholesterolemia, unspecified (principal); I48.19 Other persistent atrial fibrillation
CPT/HCPCS: 36415; 80053; 80061; 83704; 83735; 85027

== ENCOUNTER → 2023-11-11 14:02 | Outpatient (CLI) | payer MEDICARE, OTHER, SELFPAY ==
[2022-11-26 10:53] VITALS: BMI 27.2
--- NOTE | 2023-11-11 14:04 | DI.RAD.S_ITS ---
PROCEDURE: XR CHEST 2V INDICATIONS: Acute cough TECHNIQUE: 2 views of the chest were acquired. COMPARISON: [facility], CR, XR CHEST 1V, 09/12/2022, 13:28. FINDINGS: Surgical changes and devices: Pacemaker. Lungs and pleura: Minimal blunting of the costophrenic angles, right greater than left suggestive of chronic scarring versus effusion. Mild appearance of increased streaky right basilar opacities. Mediastinum: Mediastinal contours are normal. Heart size is enlarged. Bones and chest wall: No suspicious bony abnormalities. Soft tissues appear unremarkable. IMPRESSION: Mild appearance of streaky right basilar opacities which may be indicative of atelectasis versus developing pneumonia. Dictated by: Ximena Langston M.D. on 11/12/2023 at 11:11 Approved by: Ximena Langston M.D. on 11/12/2023 at 11:12
== END ==
PROVIDERS: PCP Family Medicine; Referring Provider Registered Nurse; Visit Provider Registered Nurse
DX: R05.1 Acute cough (principal); Z95.0 Presence of cardiac pacemaker
CPT/HCPCS: 71046

== ENCOUNTER → 2023-12-25 12:17 | Outpatient (CLI) | payer MEDICARE, OTHER, SELFPAY ==
[2022-11-26 10:53] VITALS: BMI 27.2
[2023-12-25 13:44] LABS: Prostate Specific Antigen < 0.064 ng/mL (0.10-4.00)
== END ==
PROVIDERS: PCP Family Medicine; Referring Provider Urology; Visit Provider Urology
DX: R97.20 Elevated prostate specific antigen [PSA] (principal)
CPT/HCPCS: 36415; 84153

== ENCOUNTER → 2024-01-18 11:53 | Outpatient (CLI) | payer MEDICARE, OTHER, SELFPAY ==
[2022-11-26 10:53] VITALS: BMI 27.2
[2024-01-18 12:29] LABS: Add Manual Diff / Slide Review NO; Basophils Absolute Auto 0 /uL (0-100); Basophils Percent Auto 0.6 % (0-2); Eosinophils Absolute Auto 500 /uL (0-450); Eosinophils Percent Auto 6.8 % (2-4); Hematocrit 28.8 % (41-53); Hemoglobin 9.6 g/dL (13.5-17.5); Lymphocytes Absolute Auto 1200 /uL (1100-4500); Lymphocytes Percent Auto 17.6 % (25-40); Mean Corpuscular HGB Conc 33.4 % (30-36); Mean Corpuscular Hemoglobin 30.7 PG (26-34); Mean Corpuscular Volume 92.2 fL (80-100); Monocytes Absolute Auto 1500 /uL (0-900); Neutrophils Absolute Auto 3600 /uL (1500-7000); Platelet Count 113 X10^3/uL (150-400); Red Blood Cell Count 3.13 X10^6/uL (4.5-5.9); Red Cell Distribution Width 15.8 % (11.6-14.8); White Blood Cell Count 6.7 X10^3/uL (4.5-11.0)
[2024-01-18 12:50] LABS: Alanine Aminotransferase 17 IU/L (<50); Albumin 4.1 g/dL (3.5-5.0); Albumin Globulin Ratio 1.3 (1.0-2.8); Alkaline Phosphatase 80 U/L (38-126); Aspartate Aminotransferase 32 IU/L (17-59); BUN Creatinine Ratio 12.1 (6-22); Bilirubin Total 0.6 mg/dL (0.2-1.3); Blood Urea Nitrogen 29 mg/dL (9-20); Calcium 9.2 mg/dL (8.4-10.2); Carbon Dioxide 24 mmol/L (22-32); Chloride 108 mmol/L (98-107); Estimated Glomerular Filt Rate 26 mL/min (>60); Globulin 3.1 g/dL (1.7-4.1); Glucose 101 mg/dL (80-110); Magnesium 2.2 mg/dL (1.6-2.3); Potassium 4.4 mmol/L (3.4-5.1); Sodium 140 mmol/L (137-145); Total Protein 7.2 g/dL (6.3-8.2)
[2024-01-18 13:00] LABS: HEMOLYSIS < 15 (0-50); NT-proBNP (BNP-Adult 18+) 10500 pg/mL (<450)
== END ==
PROVIDERS: PCP Family Medicine; Referring Provider Specialist; Visit Provider Specialist
DX: R06.02 Shortness of breath (principal); I25.5 Ischemic cardiomyopathy; I48.19 Other persistent atrial fibrillation; D50.8 Other iron deficiency anemias
CPT/HCPCS: 36415; 80053; 83735; 83880; 85025

== ENCOUNTER → 2024-02-11 10:55 | Outpatient (CLI) | payer MEDICARE, OTHER, SELFPAY ==
[2022-11-26 10:53] VITALS: BMI 27.2
[2024-02-11 12:59] LABS: Hematocrit 24.2 % (41-53); Mean Corpuscular HGB Conc 32.9 % (30-36); Mean Corpuscular Hemoglobin 31.6 PG (26-34); Mean Corpuscular Volume 96.2 fL (80-100); Platelet Count 88 X10^3/uL (150-400); Red Blood Cell Count 2.52 X10^6/uL (4.5-5.9); Red Cell Distribution Width 18.3 % (11.6-14.8); White Blood Cell Count 4.8 X10^3/uL (4.5-11.0)
[2024-02-11 13:02] LABS: BUN Creatinine Ratio 14.7 (6-22); Blood Urea Nitrogen 43 mg/dL (9-20); Calcium 8.6 mg/dL (8.4-10.2); Carbon Dioxide 25 mmol/L (22-32); Chloride 110 mmol/L (98-107); Estimated Glomerular Filt Rate 21 mL/min (>60); Glucose 92 mg/dL (80-110); HEMOLYSIS < 15 (0-50); Potassium 3.9 mmol/L (3.4-5.1); Sodium 142 mmol/L (137-145)
[2024-02-11 13:04] LABS: Albumin 4.1 g/dL (3.5-5.0); BUN Creatinine Ratio 14.9 (6-22); Blood Urea Nitrogen 43 mg/dL (9-20); Calcium 8.8 mg/dL (8.4-10.2); Carbon Dioxide 25 mmol/L (22-32); Chloride 111 mmol/L (98-107); Estimated Glomerular Filt Rate 21 mL/min (>60); Glucose 93 mg/dL (80-110); HEMOLYSIS < 15 (0-50); Phosphorous 3.8 mg/dL (2.3-3.7); Potassium 3.9 mmol/L (3.4-5.1); Sodium 143 mmol/L (137-145)
[2024-02-11 13:24] LABS: HEMOLYSIS < 15 (0-50); Iron 85 ug/dL (49-181)
[2024-02-11 13:37] LABS: Ferritin 478 ng/mL (18-464); Percent Iron Saturation 34 % (20-50); Total Iron Binding Capacity 251 ug/dL (261-462); Transferrin 220 mg/dL (206-381)
[2024-02-11 13:57] LABS: Appearance Urine UA CLEAR; Bilirubin Urine UA NEGATIVE (NEGATIVE); Color Urine UA YELLOW; Glucose Urine UA NEGATIVE (Negative); Ketones Urine UA NEGATIVE (NEGATIVE); Leukocyte Esterase Urine UA NEGATIVE (NEGATIVE); Nitrite Urine UA NEGATIVE (Negative); Occult Blood Urine UA NEGATIVE (Negative); Protein Urine UA TRACE (Negative); Specific Gravity Urine UA 1.015 (1.000-1.035); Urobilinogen Urine UA 0.2 E.U./dL (0.2); pH Urine UA 5.5 (4.5-8.0)
[2024-02-11 14:18] LABS: Vitamin D 25 Hydroxy (D3) 67.6 ng/mL (30.0-100.0)
[2024-02-11 14:20] LABS: Bacteria Urine None Seen; Culture Indicated Urine Cult Not Indicated; RBC Urine None Seen (0-5/HPF); Squamous Epithelial Cell Urine None Seen (0-5/HPF); Urine Volume 10mL (spun); WBC Urine None Seen (0-5/HPF)
[2024-02-11 14:30] LABS: Creatinine Urine Random 89.13 mg/dL; Protein (Total) Urine Random 31 mg/dL (0-12); Protein Creatinine Ratio Urine 0.34 GRAM/24H
[2024-02-12 09:36] LABS: Parathyroid Hormone Int 71 pg/mL (15-65)
== END ==
PROVIDERS: Specialist; PCP Family Medicine; Referring Provider Internal Medicine Nephrology; Visit Provider Internal Medicine Nephrology
DX: I25.5 Ischemic cardiomyopathy (principal); N18.32 Chronic kidney disease, stage 3b; I25.10 Atherosclerotic heart disease of native coronary artery without angina pectoris; D64.9 Anemia, unspecified; I13.10 Hypertensive heart and chronic kidney disease without heart failure, with stage 1 through stage 4 chronic kidney disease, or unspecified chronic kidney disease; I50.32 Chronic diastolic (congestive) heart failure
CPT/HCPCS: 36415; 80048; 80069; 81001; 82043; 82306; 82570; 82728; 83540; 83550; 83970; 84156; 85027

== ENCOUNTER → 2024-03-14 12:42 | Outpatient (CLI) | payer MEDICARE, OTHER, SELFPAY ==
[2022-11-26 10:53] VITALS: BMI 27.2
[2024-03-14 13:27] LABS: Add Manual Diff / Slide Review NO; Basophils Absolute Auto 0 /uL (0-100); Basophils Percent Auto 0.5 % (0-2); Eosinophils Absolute Auto 100 /uL (0-450); Eosinophils Percent Auto 1.1 % (2-4); Hemoglobin 9.1 g/dL (13.5-17.5); Lymphocytes Absolute Auto 1100 /uL (1100-4500); Lymphocytes Percent Auto 22.5 % (25-40); Mean Corpuscular HGB Conc 33.5 % (30-36); Mean Corpuscular Hemoglobin 32.5 PG (26-34); Mean Corpuscular Volume 97.1 fL (80-100); Monocytes Absolute Auto 1300 /uL (0-900); Monocytes Percent Auto 25.6 % (3-14); Neutrophils Absolute Auto 2500 /uL (1500-7000); Neutrophils Percent Auto 50.3 % (50-75); Platelet Count 79 X10^3/uL (150-400); Red Blood Cell Count 2.78 X10^6/uL (4.5-5.9); Red Cell Distribution Width 14.9 % (11.6-14.8)
[2024-03-14 13:33] LABS: Appearance Urine UA CLEAR; Bilirubin Urine UA NEGATIVE (NEGATIVE); Color Urine UA YELLOW; Glucose Urine UA NEGATIVE (Negative); Ketones Urine UA NEGATIVE (NEGATIVE); Leukocyte Esterase Urine UA NEGATIVE (NEGATIVE); Nitrite Urine UA NEGATIVE (Negative); Occult Blood Urine UA NEGATIVE (Negative); Protein Urine UA 2+ (Negative); Urobilinogen Urine UA 0.2 E.U./dL (0.2)
[2024-03-14 14:02] LABS: Bacteria Urine None Seen; Culture Indicated Urine Cult Not Indicated; RBC Urine None Seen (0-5/HPF); Squamous Epithelial Cell Urine None Seen (0-5/HPF); Urine Volume 10mL (spun); WBC Urine None Seen (0-5/HPF)
[2024-03-14 14:10] LABS: HEMOLYSIS < 15 (0-50); Iron 56 ug/dL (49-181)
[2024-03-14 14:12] LABS: Alanine Aminotransferase 69 IU/L (<50); Albumin 4.4 g/dL (3.5-5.0); Albumin Globulin Ratio 1.6 (1.0-2.8); Alkaline Phosphatase 70 U/L (38-126); Aspartate Aminotransferase 74 IU/L (17-59); BUN Creatinine Ratio 13.7 (6-22); Bilirubin Total 0.8 mg/dL (0.2-1.3); Blood Urea Nitrogen 32 mg/dL (9-20); Calcium 9.1 mg/dL (8.4-10.2); Carbon Dioxide 23 mmol/L (22-32); Chloride 108 mmol/L (98-107); Estimated Glomerular Filt Rate 27 mL/min (>60); Globulin 2.7 g/dL (1.7-4.1); Glucose 105 mg/dL (80-110); HEMOLYSIS < 15 (0-50); Magnesium 2.4 mg/dL (1.6-2.3); Phosphorous 4.2 mg/dL (2.3-3.7); Potassium 4.3 mmol/L (3.4-5.1); Sodium 141 mmol/L (137-145); Total Protein 7.1 g/dL (6.3-8.2); Uric Acid 8.3 mg/dL (3.5-8.5)
[2024-03-14 14:21] LABS: Percent Iron Saturation 22 % (20-50); Total Iron Binding Capacity 255 ug/dL (261-462); Transferrin 227 mg/dL (206-381)
[2024-03-14 14:35] LABS: Creatinine Urine Random 93.31 mg/dL; Protein (Total) Urine Random 104 mg/dL (0-12)
[2024-03-15 09:39] LABS: Parathyroid Hormone Int 106 pg/mL (15-65)
== END ==
LOC: LAB 12:46
PROVIDERS: PCP Family Medicine
DX: N25.81 Secondary hyperparathyroidism of renal origin (principal); E83.00 Disorder of copper metabolism, unspecified; N18.4 Chronic kidney disease, stage 4 (severe); R80.2 Orthostatic proteinuria, unspecified
CPT/HCPCS: 36415; 80053; 81001; 82570; 82652; 83540; 83550; 83735; 83970; 84100; 84156; 84550; 85025

== ENCOUNTER → 2024-03-29 10:38 | Outpatient (CLI) | payer MEDICARE, OTHER, SELFPAY ==
[2022-11-26 10:53] VITALS: BMI 27.2
[2024-03-29 12:43] LABS: Prostate Specific Antigen < 0.064 ng/mL (0.10-4.00)
== END ==
PROVIDERS: PCP Family Medicine; Referring Provider Urology; Visit Provider Urology
DX: C61 Malignant neoplasm of prostate (principal)
CPT/HCPCS: 36415; 84153

== ENCOUNTER → 2024-04-10 15:15 | Outpatient (CLI) | payer MEDICARE, OTHER, SELFPAY ==
[2024-03-31 10:53] VITALS: BMI 27.2
[2024-04-10 15:40] LABS: Appearance Urine UA CLEAR; Bilirubin Urine UA NEGATIVE (NEGATIVE); Color Urine UA YELLOW; Glucose Urine UA NEGATIVE (Negative); Ketones Urine UA NEGATIVE (NEGATIVE); Leukocyte Esterase Urine UA NEGATIVE (NEGATIVE); Nitrite Urine UA NEGATIVE (Negative); Occult Blood Urine UA NEGATIVE (Negative); Protein Urine UA NEGATIVE (Negative); Urobilinogen Urine UA 0.2 E.U./dL (0.2); pH Urine UA 5.5 (4.5-8.0)
[2024-04-10 15:56] LABS: Creatinine Urine Random 48.69 mg/dL; Protein (Total) Urine Random 32 mg/dL (0-12); Protein Creatinine Ratio Urine 0.65 GRAM/24H
[2024-04-10 15:59] LABS: Bacteria Urine Occasional (0-1); RBC Urine None Seen (0-5/HPF); Urine Volume 10mL (spun); WBC Urine None Seen (0-5/HPF)
[2024-04-10 16:00] LABS: Culture Indicated Urine Cult Not Indicated; Mucus Urine 1+ (Negative)
[2024-04-10 16:41] LABS: Add Manual Diff / Slide Review NO; Basophils Absolute Auto 0 /uL (0-100); Basophils Percent Auto 0.3 % (0-2); Eosinophils Absolute Auto 100 /uL (0-450); Hematocrit 29.7 % (41-53); Hemoglobin 9.7 g/dL (13.5-17.5); Lymphocytes Absolute Auto 1100 /uL (1100-4500); Lymphocytes Percent Auto 18.8 % (25-40); Mean Corpuscular HGB Conc 32.6 % (30-36); Mean Corpuscular Hemoglobin 31.6 PG (26-34); Monocytes Absolute Auto 1400 /uL (0-900); Monocytes Percent Auto 23.5 % (3-14); Neutrophils Absolute Auto 3300 /uL (1500-7000); Neutrophils Percent Auto 56.4 % (50-75); Platelet Count 114 X10^3/uL (150-400); Red Blood Cell Count 3.06 X10^6/uL (4.5-5.9); Red Cell Distribution Width 15.4 % (11.6-14.8); White Blood Cell Count 5.8 X10^3/uL (4.5-11.0)
[2024-04-10 16:58] LABS: BUN Creatinine Ratio 15.4 (6-22); Blood Urea Nitrogen 37 mg/dL (9-20); Calcium 9.1 mg/dL (8.4-10.2); Carbon Dioxide 26 mmol/L (22-32); Chloride 105 mmol/L (98-107); Estimated Glomerular Filt Rate 26 mL/min (>60); Glucose 93 mg/dL (80-110); HEMOLYSIS < 15 (0-50); Potassium 4.3 mmol/L (3.4-5.1); Sodium 141 mmol/L (137-145)
[2024-04-10 21:00] LABS: Squamous Epithelial Cell Urine None Seen (0-5/HPF)
== END ==
PROVIDERS: PCP Family Medicine; Referring Provider Internal Medicine Nephrology; Visit Provider Internal Medicine Nephrology
DX: N18.4 Chronic kidney disease, stage 4 (severe) (principal); R80.2 Orthostatic proteinuria, unspecified
CPT/HCPCS: 36415; 80048; 81001; 82570; 84156; 85025

== ENCOUNTER → 2024-04-19 10:26 | Outpatient (CLI) | payer MEDICARE, OTHER, SELFPAY ==
[2024-03-31 10:53] VITALS: BMI 27.2
[2024-04-19 10:59] LABS: Add Manual Diff / Slide Review NO; Basophils Absolute Auto 0 /uL (0-100); Basophils Percent Auto 0.6 % (0-2); Eosinophils Absolute Auto 100 /uL (0-450); Eosinophils Percent Auto 1.3 % (2-4); Hemoglobin 10.2 g/dL (13.5-17.5); Lymphocytes Absolute Auto 900 /uL (1100-4500); Lymphocytes Percent Auto 17.9 % (25-40); Mean Corpuscular Hemoglobin 31.6 PG (26-34); Mean Corpuscular Volume 95.7 fL (80-100); Monocytes Absolute Auto 1100 /uL (0-900); Monocytes Percent Auto 21.7 % (3-14); Neutrophils Absolute Auto 2800 /uL (1500-7000); Neutrophils Percent Auto 58.5 % (50-75); Platelet Count 113 X10^3/uL (150-400); Red Blood Cell Count 3.24 X10^6/uL (4.5-5.9); Red Cell Distribution Width 15.3 % (11.6-14.8); White Blood Cell Count 4.9 X10^3/uL (4.5-11.0)
[2024-04-19 11:15] LABS: Appearance Urine UA CLEAR; Bilirubin Urine UA NEGATIVE (NEGATIVE); Color Urine UA YELLOW; Glucose Urine UA NEGATIVE (Negative); Ketones Urine UA NEGATIVE (NEGATIVE); Leukocyte Esterase Urine UA NEGATIVE (NEGATIVE); Nitrite Urine UA NEGATIVE (Negative); Occult Blood Urine UA NEGATIVE (Negative); Protein Urine UA 2+ (Negative); Specific Gravity Urine UA 1.025 (1.000-1.035); Urobilinogen Urine UA 0.2 E.U./dL (0.2); pH Urine UA 5.5 (4.5-8.0)
[2024-04-19 11:24] LABS: Bacteria Urine Occasional (0-1); Culture Indicated Urine Cult Not Indicated; RBC Urine 1-5/HPF (0-5/HPF); Squamous Epithelial Cell Urine 1-5 /HPF (0-5/HPF); Urine Volume 10mL (spun); WBC Urine 1-5/HPF (0-5/HPF)
[2024-04-19 11:29] LABS: BUN Creatinine Ratio 13.1 (6-22); Blood Urea Nitrogen 32 mg/dL (9-20); Calcium 9.4 mg/dL (8.4-10.2); Carbon Dioxide 25 mmol/L (22-32); Chloride 104 mmol/L (98-107); Estimated Glomerular Filt Rate 25 mL/min (>60); Glucose 107 mg/dL (80-110); HEMOLYSIS < 15 (0-50); Potassium 4.3 mmol/L (3.4-5.1); Sodium 138 mmol/L (137-145)
[2024-04-19 11:30] LABS: Magnesium 2.2 mg/dL (1.6-2.3)
[2024-04-19 11:37] LABS: NT-proBNP (BNP-Adult 18+) 18100 pg/mL (<450)
[2024-04-19 11:59] LABS: Protein (Total) Urine Random 117 mg/dL (0-12); Protein Creatinine Ratio Urine 1.14 GRAM/24H
[2024-04-21 16:11] LABS: Cholesterol, Total 181 mg/dL (100-199); HDL-Cholesterol 44 mg/dL (>39); HDL-Particle (Total) 25.6 umol/L (>=30.5); Historical Reading Comment: (.); LDL Particle 1538 nmol/L (<1000); LDL Size 21.4 nm (>20.5); LDL-Cholsterol 115 mg/dL (0-99); LP-IR Score 46 (<=45); Small LDL- Particle 620 nmol/L (<=527); Triglycerides 120 mg/dL (0-149)
== END ==
PROVIDERS: PCP Family Medicine; Referring Provider Internal Medicine Nephrology; Visit Provider Internal Medicine Nephrology
DX: N18.4 Chronic kidney disease, stage 4 (severe) (principal); R80.2 Orthostatic proteinuria, unspecified; E78.00 Pure hypercholesterolemia, unspecified; R06.02 Shortness of breath; I48.0 Paroxysmal atrial fibrillation
CPT/HCPCS: 36415; 80048; 80061; 81001; 82570; 83704; 83735; 83880; 84156; 85025

== ENCOUNTER → 2024-05-09 16:00 | Outpatient (CLI) | payer MEDICARE, OTHER, SELFPAY ==
[2024-03-31 10:53] VITALS: BMI 27.2
--- NOTE | 2024-05-09 16:01 | DI.RAD.S_ITS ---
PROCEDURE: XR CHEST 2V INDICATIONS: COUGH TECHNIQUE: 2 views of the chest were acquired. COMPARISON: [facility], CR, XR CHEST 2V, 11/11/2023, 14:05. FINDINGS: Surgical changes and devices: Left anterior chest wall dual lead cardiac pacing device. Lungs and pleura: Lungs are clear. No pleural effusions or pneumothorax. Mediastinum: Mediastinal contours are normal. The heart is mildly enlarged. Atherosclerotic vascular calcifications are identified. Bones and chest wall: No suspicious bony abnormalities. Soft tissues appear unremarkable. IMPRESSION: No acute cardiopulmonary abnormality is seen. Cardiomegaly noted. Dictated by: Ivan Vivar M.D. on 05/11/2024 at 3:11 Approved by: Ivan Vivar M.D. on 05/11/2024 at 3:11
== END ==
LOC: RAD 16:01
PROVIDERS: PCP Family Medicine; Referring Provider Family Medicine; Visit Provider Family Medicine
DX: R05.1 Acute cough (principal); I51.7 Cardiomegaly; Z95.0 Presence of cardiac pacemaker
CPT/HCPCS: 71046

== ENCOUNTER → 2024-06-23 14:41 | Outpatient (CLI) | payer MEDICARE, OTHER, SELFPAY ==
[2024-03-31 10:53] VITALS: BMI 27.2
[2024-06-23 16:47] LABS: Prostate Specific Antigen < 0.064 ng/mL (0.10-4.00)
== END ==
PROVIDERS: PCP Family Medicine; Referring Provider Urology; Visit Provider Urology
DX: R97.20 Elevated prostate specific antigen [PSA] (principal); C61 Malignant neoplasm of prostate
CPT/HCPCS: 36415; 84153

== ENCOUNTER → 2024-07-04 17:52 | Outpatient (CLI) | payer MEDICARE, OTHER, SELFPAY ==
[2024-03-31 10:53] VITALS: BMI 27.2
[2024-07-04 18:09] LABS: Hematocrit 31.7 % (41-53); Hemoglobin 10.7 g/dL (13.5-17.5); Mean Corpuscular HGB Conc 33.7 % (30-36); Mean Corpuscular Hemoglobin 31.3 PG (26-34); Platelet Count 63 X10^3/uL (150-400); Red Blood Cell Count 3.41 X10^6/uL (4.5-5.9); Red Cell Distribution Width 18.6 % (11.6-14.8); White Blood Cell Count 3.5 X10^3/uL (4.5-11.0)
[2024-07-04 18:11] LABS: Add Manual Diff / Slide Review YES
[2024-07-04 18:19] LABS: Appearance Urine UA CLEAR; Bilirubin Urine UA NEGATIVE (NEGATIVE); Color Urine UA YELLOW; Glucose Urine UA NEGATIVE (Negative); Ketones Urine UA NEGATIVE (NEGATIVE); Leukocyte Esterase Urine UA NEGATIVE (NEGATIVE); Nitrite Urine UA NEGATIVE (Negative); Occult Blood Urine UA NEGATIVE (Negative); Protein Urine UA TRACE (Negative); Urobilinogen Urine UA 0.2 E.U./dL (0.2)
[2024-07-04 18:24] LABS: Neutrophils Absolute Manual 1785 /uL (3000-5900); RBC Morphology Normal Morphology; Total Cells Counted 100
[2024-07-04 18:29] LABS: BUN Creatinine Ratio 18.7 (6-22); Blood Urea Nitrogen 43 mg/dL (9-20); Calcium 8.7 mg/dL (8.4-10.2); Carbon Dioxide 28 mmol/L (22-32); Chloride 103 mmol/L (98-107); Estimated Glomerular Filt Rate 27 mL/min (>60); Glucose 129 mg/dL (70-99); HEMOLYSIS < 15 (0-50); Potassium 4.2 mmol/L (3.4-5.1); Sodium 139 mmol/L (137-145)
[2024-07-04 18:29] LABS: Bacteria Urine Occasional (0-1); Culture Indicated Urine Cult Not Indicated; RBC Urine None Seen (0-5/HPF); Squamous Epithelial Cell Urine 0-1 /HPF (0-5/HPF); Urine Volume 10mL (spun); WBC Urine 0-1/HPF (0-5/HPF)
[2024-07-04 18:33] LABS: Creatinine Urine Random 62.69 mg/dL; Protein (Total) Urine Random 35 mg/dL (0-12); Protein Creatinine Ratio Urine 0.55 GRAM/24H
== END ==
PROVIDERS: PCP Family Medicine; Referring Provider Internal Medicine Nephrology; Visit Provider Internal Medicine Nephrology
DX: N18.4 Chronic kidney disease, stage 4 (severe) (principal); R80.2 Orthostatic proteinuria, unspecified
CPT/HCPCS: 36415; 80048; 81001; 82570; 84156; 85007; 85025

== ENCOUNTER → 2024-07-17 10:22 | Outpatient (CLI) | payer MEDICARE, OTHER, SELFPAY ==
[2024-03-31 10:53] VITALS: BMI 27.2
[2024-07-17 11:51] LABS: Alanine Aminotransferase 24 IU/L (<50); Albumin 4.5 g/dL (3.5-5.0); Albumin Globulin Ratio 1.7 (1.0-2.8); Alkaline Phosphatase 79 U/L (38-126); Aspartate Aminotransferase 43 IU/L (17-59); BUN Creatinine Ratio 12.2 (6-22); Bilirubin Total 0.7 mg/dL (0.2-1.3); Blood Urea Nitrogen 28 mg/dL (9-20); Calcium 8.8 mg/dL (8.4-10.2); Carbon Dioxide 28 mmol/L (22-32); Chloride 104 mmol/L (98-107); Estimated Glomerular Filt Rate 27 mL/min (>60); Globulin 2.7 g/dL (1.7-4.1); Glucose 94 mg/dL (70-99); HEMOLYSIS < 15 (0-50); Magnesium 2.2 mg/dL (1.6-2.3); Potassium 3.9 mmol/L (3.4-5.1); Sodium 140 mmol/L (137-145); Total Protein 7.2 g/dL (6.3-8.2)
[2024-07-17 12:01] LABS: NT-proBNP (BNP-Adult 18+) 13700 pg/mL (<450)
== END ==
LOC: LAB 10:24
PROVIDERS: PCP Family Medicine; Referring Provider Specialist; Visit Provider Specialist
DX: I48.0 Paroxysmal atrial fibrillation (principal); E78.00 Pure hypercholesterolemia, unspecified; R06.02 Shortness of breath
CPT/HCPCS: 36415; 80053; 83735; 83880

== ENCOUNTER → 2024-08-25 15:18 | Outpatient (CLI) | payer MEDICARE, OTHER, SELFPAY ==
[2024-03-31 10:53] VITALS: BMI 27.2
--- NOTE | 2024-08-25 15:19 | DI.CT.S_ITS ---
PROCEDURE: CT LUMBAR SPINE WO CON INDICATIONS: chronic lower back pain TECHNIQUE: Noncontrast 3 mm thick sections acquired from the T12 level to the sacrum. Sagittal and coronal reformats were constructed. For radiation dose reduction, the following was used: automated exposure control. COMPARISON: [facility], MR, MR LUMBAR SPINE WO CON, 09/18/2022, 16:04. FINDINGS: Image quality: Excellent. Bones: There is normal bony alignment. No acute vertebral body compression fractures. No suspicious lytic or blastic bony lesions. No pars defects. T12-L1: Moderate to severe disc height loss . L1-L2: Moderate to severe disc height loss, broad-based disc bulge, mild facet arthrosis. L2-L3: Disc osteophyte complex, facet hypertrophy, ligamentum flavum hypertrophy causing moderate spinal canal narrowing, unchanged. L3-L4: Disc osteophyte complex, facet hypertrophy, ligamentum flavum hypertrophy causing moderate to severe spinal canal narrowing, unchanged. L4-L5: Disc osteophyte complex, facet hypertrophy, ligamentum flavum hypertrophy and central disc bulge causing moderate spinal canal narrowing, progressed from prior. Moderate left neural foraminal narrowing. L5-S1: Disc osteophyte complex, facet hypertrophy . Mild left neural foraminal narrowing. Soft tissues: No retroperitoneal masses or hematomas. Visualized aorta is normal in caliber. Colonic diverticulosis without evidence of diverticulitis. Diffuse bladder wall thickening. 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 Of note: Moderate to severe spinal canal narrowing at L2-3, L3-4 and L4-5. Moderate left neural foraminal narrowing at L4-5 and mild left neural foraminal narrowing at L5-S1. Diffuse bladder wall thickening, which may indicate cystitis. Correlate with urinalysis. Dictated by: Anjel Laura M.D. on 08/25/2024 at 21:17 Approved by: Anjel Laura M.D. on 08/25/2024 at 21:22
== END ==
PROVIDERS: PCP Family Medicine; Referring Provider Family Medicine; Visit Provider Family Medicine
DX: M51.360 Other intervertebral disc degeneration, lumbar region with discogenic back pain only (principal); M51.370 Other intervertebral disc degeneration, lumbosacral region with discogenic back pain only; M47.816 Spondylosis without myelopathy or radiculopathy, lumbar region; M47.817 Spondylosis without myelopathy or radiculopathy, lumbosacral region; M48.061 Spinal stenosis, lumbar region without neurogenic claudication; M48.07 Spinal stenosis, lumbosacral region; G89.29 Other chronic pain
CPT/HCPCS: 72131

== ENCOUNTER → 2024-09-07 16:19 | Outpatient (CLI) | payer MEDICARE, OTHER, SELFPAY ==
[2024-03-31 10:53] VITALS: BMI 27.2
[2024-09-07 17:27] LABS: Appearance Urine UA CLEAR; Bilirubin Urine UA NEGATIVE (NEGATIVE); Color Urine UA YELLOW; Glucose Urine UA NEGATIVE (Negative); Ketones Urine UA NEGATIVE (NEGATIVE); Leukocyte Esterase Urine UA NEGATIVE (NEGATIVE); Nitrite Urine UA NEGATIVE (Negative); Occult Blood Urine UA NEGATIVE (Negative); Protein Urine UA 2+ (Negative); Specific Gravity Urine UA 1.020 (1.000-1.035); Urobilinogen Urine UA 0.2 E.U./dL (0.2); pH Urine UA 5.5 (4.5-8.0)
[2024-09-07 17:33] LABS: Culture Indicated Urine Cult Not Indicated
[2024-09-07 17:52] LABS: Protein (Total) Urine Random 116 mg/dL (0-12); Protein Creatinine Ratio Urine 0.63 GRAM/24H
[2024-09-07 18:15] LABS: Add Manual Diff / Slide Review NO; Hematocrit 31.9 % (41-53); Hemoglobin 10.8 g/dL (13.5-17.5); Lymphocytes Absolute Auto 900 /uL (1100-4500); Mean Corpuscular HGB Conc 33.7 % (30-36); Mean Corpuscular Hemoglobin 33.1 PG (26-34); Mean Corpuscular Volume 98.2 fL (80-100); Platelet Count 104 X10^3/uL (150-400)
[2024-09-07 18:42] LABS: Blood Urea Nitrogen 36 mg/dL (9-20); Calcium 8.7 mg/dL (8.4-10.2); Carbon Dioxide 24 mmol/L (22-32); Chloride 105 mmol/L (98-107); Estimated Glomerular Filt Rate 24 mL/min (>60); Glucose 83 mg/dL (70-99); HEMOLYSIS < 15 (0-50); Potassium 4.8 mmol/L (3.4-5.1); Sodium 140 mmol/L (137-145)
[2024-09-07 18:58] LABS: Vitamin D 25 Hydroxy (D3) 56.7 ng/mL (30.0-100.0)
[2024-09-07 19:14] LABS: Prostate Specific Antigen < 0.064 ng/mL (0.10-4.00)
== END ==
LOC: LAB 16:21
PROVIDERS: Internal Medicine Nephrology; Urology; PCP Family Medicine
DX: C61 Malignant neoplasm of prostate (principal); M85.851 Other specified disorders of bone density and structure, right thigh; N18.4 Chronic kidney disease, stage 4 (severe); R97.20 Elevated prostate specific antigen [PSA]
CPT/HCPCS: 36415; 80048; 81001; 82306; 82570; 84153; 84156; 85025

== ENCOUNTER 2024-09-24 10:43 | Emergency (ER) | payer MEDICARE, OTHER, SELFPAY ==
[2024-09-12 13:54] VITALS: BMI 27.2
[2024-09-24] VITALS (8 sets, daily range): BP systolic 135–187; BP diastolic 83–93; PULSE 64–68; RESP 18–23; TEMP 36.6; O2SAT 96–98; BMI 27.9
--- NOTE | 2024-09-24 11:08 | DI.RAD.S_ITS ---
PROCEDURE: XR RIBS RT MIN 3V W CXR 1V INDICATIONS: fall TECHNIQUE: 2 views of the ribs were acquired, along with a single view chest. COMPARISON: None. FINDINGS: Surgical changes and devices: None. Bones and chest wall: No fractures or dislocations. No suspicious bony lesions. Overlying soft tissues appear unremarkable. Lungs and pleura: No pleural effusions or pneumothorax. Lungs appear clear. Mediastinum: Mediastinal contours appear normal. Heart size is normal. IMPRESSION: No displaced rib fracture or pneumothorax. Dictated by: Radha Sutton M.D. on 09/24/2024 at 10:54 Approved by: Radha Sutton M.D. on 09/24/2024 at 10:55
--- NOTE | 2024-09-24 11:09 | DI.CT.S_ITS ---
PROCEDURE: CT HEAD/BRAIN WO CON INDICATIONS: fall TECHNIQUE: Noncontrast 4.5 mm thick angled axial sections acquired from the foramen magnum to the vertex, with coronal and sagittal reformats. For radiation dose reduction, the following was used: automated exposure control, adjustment of mA and/or kV according to patient size. COMPARISON: None. FINDINGS: Image quality: Diagnostic. CSF spaces: Basal cisterns are patent. No extra-axial fluid collections. The ventricles are symmetric in size and shape. Brain: No intracranial bleeds or mass effect. There is cerebral volume loss, with resultant ventricular and sulcal prominence. There are periventricular and deep white matter chronic small vessel ischemic changes. There is intracranial internal carotid artery atherosclerosis. Skull and face: Calvarium and visualized facial bones appear intact, without suspicious lesions. Sinuses: Visualized sinuses and mastoids are clear. IMPRESSION: No acute intracranial pathology. Dictated by: Radha Sutton M.D. on 09/24/2024 at 10:43 Approved by: Radha Sutton M.D. on 09/24/2024 at 10:44
--- NOTE | 2024-09-24 11:13 | DI.CT.S_ITS ---
PROCEDURE: CT CERVICAL SPINE WO CON INDICATIONS: fall on thinners with head strike TECHNIQUE: Noncontrast 3 mm thick sections acquired from the skull base to the T4 level. Sagittal and coronal reformats were then constructed. For radiation dose reduction, the following was used: automated exposure control, adjustment of mA and/or kV according to patient size. COMPARISON: None. FINDINGS: Image quality: Excellent. Bones: No fractures or dislocations. Visualized superior ribs are intact. There are [id number] degenerative changes most prominent at C3-C7 Soft tissues: Prevertebral soft tissues are normal in thickness. No paravertebral hematomas. No apical pneumothoraces. A right cervical subcutaneous stimulator is partially imaged as are left subclavian pacer wires. IMPRESSION: No displaced fracture or traumatic subluxation. [id number] degenerative disc disease of the cervical spine. Dictated by: Radha Sutton M.D. on 09/24/2024 at 10:44 Approved by: Radha Sutton M.D. on 09/24/2024 at 10:47
--- NOTE | 2024-10-11 17:53 | ED.FALL ---
HPI - Fall General Chief Complaint: Fall Stated Complaint: fell 2days ago; ribs and legs hurt, hit head Time Seen by Provider: 09/24/24 11:08 Source: patient Mode of arrival: Ambulatory History of Present Illness HPI Narrative: 84 yo m who 2 days ago had a ground level fall and injured his ribs on the right side, head and leg area. His main complaint is his ribs at the moment. The head and legs no longer hurt at this time and there is no evidence of any injury. No other symptoms. Related Data Home Medications ?Medication ?Instructions ?Recorded ?Confirmed rosuvastatin 10 mg tablet 10 mg PO DAILY 01/22/23 09/25/24 apixaban [Eliquis] 2.5 mg PO BID 09/22/24 09/25/24 carvedilol 25 mg tablet 25 mg PO BID 09/22/24 09/25/24 ferrous gluconate 324 mg (37.5 mg 324 mg PO BID 09/22/24 09/25/24 iron) tablet hydralazine 100 mg tablet 100 mg PO BID 09/22/24 09/25/24 isosorbide mononitrate 30 mg 30 mg PO DAILY 09/22/24 09/25/24 tablet,extended release 24 hr lisinopril 20 mg tablet 20 mg PO BID 09/22/24 09/25/24 torsemide 10 mg tablet 10 mg PO BID 09/22/24 09/25/24 Previous Rx's ?Medication ?Instructions ?Recorded lidocaine 5 % topical patch 1 patch topical Q12-24H #30 ea 09/24/24 mirabegron 50 mg tablet,extended 50 mg PO DAILY #90 tabs 10/09/24 release 24 hr (Myrbetriq) Allergies Allergy/AdvReac Type Severity Reaction Status Date / Time No Known Drug Allergies Allergy Verified 09/25/24 16:27 Review of Systems Review of Systems ROS Unobtainable: All systems reviewed & are unremarkable except as noted in HPI and below Patient History Medical History Elevated PSA Personal history of radiation therapy LAFB (left anterior fascicular block) RBBB Renal artery aneurysm Mitral regurgitation Ischemic cardiomyopathy Persistent atrial fibrillation Mixed hyperlipidemia Essential hypertension Sleep apnea Chronic renal failure, stage 3a Coronary artery disease Iron deficiency anemia Androgen deprivation therapy Lower urinary tract symptoms Osteopenia Long-term use of high-risk medication 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 Bilateral lower extremity edema Nocturia associated with benign prostatic hyperplasia History of hypertension Hx of hyperlipidemia History of BPH History of dyspnea History of anemia Hx of fatigue History of deviated nasal septum Hx of sleep apnea Toe injury Myocardial infarct Surgical History S/P coronary artery stent placement Hx of neck surgery Family History Other Elevated PSA Social History marital status: household members: spouse lives independently: Yes occupational status: previously employed alcohol intake: current substance use type: does not use caffeine: Yes Type(s) of exercise: walking frequency: 1-2 times per week duration: < 15 minutes/day Smoking Status: Never smoker alcohol intake frequency: holidays/special occasions only Exam Narrative Exam Narrative: gen: no acute distress head: nc/at eyes: pupils equally reactive cv: regular rate rhythm, no murmurs, rubs, or gallops lungs: clear to auscultation abd: soft , pain with palpation over r axillary region neuro: no focal deficits Initial Vital Signs Initial Vital Signs: Vital Signs Temperature 97.9 F 09/24/24 11:01 Pulse Rate 65 09/24/24 11:01 Respiratory Rate 18 09/24/24 11:01 Blood Pressure 182/84 H 09/24/24 11:01 Pulse Oximetry 96 09/24/24 11:01 Oxygen Delivery Method Room Air 09/24/24 11:01 Course Course Course Narrative: will get imaging including ct head/ c spine, and rib xrays MDM - Fall Differential Diagnosis Differential diagnosis: Likely dislocation of shoulder region, concussion with loss of consciousness and other (intracranial injury, rib fracture ) Imaging Data Chest x-ray: Radiologist's Impression: No displaced rib fracture or pneumothorax. Dictated by: Radha Sutton M.D. on 09/24/2024 at 10:54 Approved by: Radha Sutton M.D. on 09/24/2024 at 10:55 CT scan - head: Radiologist's Impression: No acute intracranial pathology. Dictated by: Radha Sutton M.D. on 09/24/2024 at 10:43 Approved by: Radha Sutton M.D. on 09/24/2024 at 10:44 CT - cervical spine: Radiologist's Impression: No displaced fracture or traumatic subluxation. [id number] degenerative disc disease of the cervical spine. Dictated by: Radha Sutton M.D. on 09/24/2024 at 10:44 Approved by: Radha Sutton M.D. on 09/24/2024 at 10:47 [facility] Narrative Medical decision making narrative: based on imaging and clinical symptoms, patient safe to be discharged at this time with no acute injuries, return if any new symptoms or symptoms worsen. f/up with pcp for bp management Discharge Plan Departure Patient Disposition: Home Clinical Impression: Contusion of rib on right side Qualifiers: Encounter type: initial encounter Qualified Code(s): S29.8XXA - Other specified injuries of thorax, initial encounter Hypertension Qualifiers: Hypertension type: unspecified Qualified Code(s): I10 - Essential (primary) hypertension Instructions: How to Prevent Falls Activity Restrictions/Additional Instructions: Use meds as instructed. Follow up back in the ER for worsening pain or worsening shortness of breath. Chest x-ray today negative for any acute fracture. Follow-up with primary care provider with blood pressure readings. May need to get a bilateral renal ultrasound to look for secondary reasons of his resistant hypertension. Make sure to take your blood pressure medications later this evening as instructed. Prescriptions: New lidocaine 5 % adhesive patch,medicated 1 patch topical Q12-24H Qty: 30 0RF Rx Instructions: leave on most painful area for up to 12 hrs No Action mirabegron [Myrbetriq] 50 mg tablet extended release 24 hr 50 mg PO DAILY Qty: 90 0RF ferrous gluconate 324 mg (37.5 mg iron) tablet 324 mg PO BID carvedilol 25 mg tablet 25 mg PO BID Rx Instructions: must administer with a meal/food isosorbide mononitrate 30 mg tablet extended release 24 hr 30 mg PO DAILY torsemide 10 mg tablet 10 mg PO BID apixaban [Eliquis] 2.5 mg PO BID rosuvastatin 10 mg tablet 10 mg PO DAILY hydralazine 100 mg tablet 100 mg PO BID lisinopril 20 mg tablet 20 mg PO BID Referrals: Jesse Mcdaniels MD [Primary Care Provider, Family Practice] Stand Alone Forms: Patient Portal/API
== END 2024-09-24 12:42 | disposition home or self-care (01) ==
PROVIDERS: Emergency Provider Family Medicine; PCP Family Medicine
DX: S20.211A Contusion of right front wall of thorax, initial encounter (principal); S09.90XA Unspecified injury of head, initial encounter; I10 Essential (primary) hypertension; W18.30XA Fall on same level, unspecified, initial encounter; Z79.01 Long term (current) use of anticoagulants
CPT/HCPCS: 70450; 71101; 72125; 99283; 99284

== ENCOUNTER → 2024-10-12 14:45 | Outpatient (CLI) | payer MEDICARE, OTHER, SELFPAY ==
[2024-09-12 13:54] VITALS: BMI 27.2
[2024-10-12 15:53] LABS: Alanine Aminotransferase 21 IU/L (<50); Albumin 4.2 g/dL (3.5-5.0); Albumin Globulin Ratio 1.7 (1.0-2.8); Alkaline Phosphatase 69 U/L (38-126); Blood Urea Nitrogen 39 mg/dL (9-20); Calcium 8.9 mg/dL (8.4-10.2); Carbon Dioxide 27 mmol/L (22-32); Chloride 104 mmol/L (98-107); Estimated Glomerular Filt Rate 24 mL/min (>60); Globulin 2.5 g/dL (1.7-4.1); Glucose 96 mg/dL (70-99); HEMOLYSIS < 15 (0-50); Magnesium 2.5 mg/dL (1.6-2.3); Potassium 4.4 mmol/L (3.4-5.1); Sodium 140 mmol/L (137-145); Total Protein 6.7 g/dL (6.3-8.2)
[2024-10-12 16:03] LABS: NT-proBNP (BNP-Adult 18+) 6920 pg/mL (<450)
[2024-10-14 12:13] LABS: Cholesterol, Total 152 mg/dL (100-199); HDL-Particle (Total) 27.6 umol/L (>=30.5); Historical Reading Comment: (.); LDL Particle 1123 nmol/L (<1000); LDL-Cholsterol 83 mg/dL (0-99); Small LDL- Particle 286 nmol/L (<=527); Triglycerides 172 mg/dL (0-149)
== END ==
PROVIDERS: PCP Family Medicine; Referring Provider Specialist; Visit Provider Specialist
DX: R06.02 Shortness of breath (principal); I48.0 Paroxysmal atrial fibrillation; E78.00 Pure hypercholesterolemia, unspecified
CPT/HCPCS: 36415; 80053; 80061; 83704; 83735; 83880

== ENCOUNTER 2025-03-01 18:48 | Emergency (ER) | payer MEDICARE, OTHER, SELFPAY ==
[2024-10-26 22:05] VITALS: BMI 27.6
--- OUTSIDE RECORDS SUMMARY | 2025-03-01 18:50 | XMS_ITS | Encounter Summary ---
Author Organization [facility] Address [address] [place] [address] Care Team Providers Care Band Attacher Name Role Phone Jesse Mcdaniels Primary Care Provider [phone] Encounter Details Date Type Department Care Team (Late st Contact Info) Description 12/02/2020 Orders Only [facility] Cardiology [address], [place] [address] Jesse Baxter MD [address] [place] [id number] Pure hypercholesterolemia; Essential hypertension Social History Tobacco Use Types Packs/Day Years Used Date Smoking Tobacco: Never Smokeless Tobacco: Never Alcohol Use Standard Drinks/Week Comments Yes 1 (1 standard drink = 0.6 oz pur e alcohol) Sex and Gender Information Value Date Recorded Sex Assigned at Male 05/11/2019 2:19 PM PST Legal Sex Male 6:29 PM PDT Gender Identity Male 05/11/2019 2:19 PM PST Sexual Orientation Don't know 11/08/2024 7: 32 PM PDT Sexual Orientation Straight 11/08/2024 7: 32 PM PDT documented as of this encounter Plan of Treatment Upcoming Encounters Date Type Department Care Team (Late st Contact Info) Description 03/28/2025 11:40 AM PST Office Visit [facility] Cardiology [address], [address] [place] [id number] Amol Cueva MD [address] [place] [address] [address] [place] [address] documented as of this encounter Procedures Procedure Name Priority Date/Time Associated Diagnosis Comments NMR LIPOPROFILE Routine 11/29/2020 Pure hypercholesterolemia MAGNESIUM Routine 11/29/2020 Essential hypertension COMPREHENSIVE METABOLIC PANEL Routine 11/29/2020 Pure hypercholesterolemia documented in this encounter Results * NMR LipoProfile (11/29/2020) Blood Venous blood / Unknown us Jesse Baxter MD LAB BLOOD ORDERABLES Final Result * Magnesium (11/29/2020) Blood Venous blood / Unknown us Jesse Baxter MD LAB BLOOD ORDERABLES Final Result * Comprehensive Metabolic Panel (11/29/2020) Blood Venous blood / Unknown Jesse Baxter MD LAB BLOOD ORDERABLES Final Result documented in this encounter Visit Diagnoses Diagnosis Pure hypercholesterolemia Essential hypertension Unspecified essential hypertension documented in this encounter Care Teams Band Attacher Relationship Specialty Start Date End Date Jesse Mcdaniels [address] [place] [address] [place] [address] PCP - General Family Medicine 07/25/24 documented as of this encounter
[2025-03-01 18:59] VITALS: BP 105/54; PULSE 80; RESP 18; TEMP 36.4; O2SAT 97; BMI 24.8
--- NOTE | 2025-03-01 21:03 | ED.MALEGU ---
HPI - Male Genitourinary General Chief complaint: Urogenital-Male Stated complaint: blood in urine X3 days Time Seen by Provider: 03/01/25 18:55 Source: patient Mode of arrival: Ambulatory History of Present Illness HPI Narrative: Patient is 85-year-old man brought in by self for 3 days of hematuria. Past medical history of atrial fibrillation on Eliquis, had 2 congestive heart failure, CAD x2 stents, history of TIA. He denies any dysuria, frequency, urgency. States that over the past 3 days he has had dark red urine and clots. He denies any chest pain, dyspnea, diaphoresis. Related Data Home Medications ?Medication ?Instructions ?Recorded ?Confirmed rosuvastatin 10 mg tablet 10 mg PO DAILY 01/22/23 10/26/24 apixaban [Eliquis] 2.5 mg PO BID 09/22/24 10/26/24 ferrous gluconate 324 mg (37.5 mg 324 mg PO BID 09/22/24 10/26/24 iron) tablet isosorbide mononitrate 30 mg 30 mg PO DAILY 09/22/24 10/26/24 tablet,extended release 24 hr lisinopril 20 mg tablet 20 mg PO BID 09/22/24 10/26/24 amlodipine 2.5 mg tablet 2.5 mg PO DAILY 10/26/24 10/26/24 empagliflozin 10 mg tablet 10 mg PO DAILY 10/26/24 10/26/24 (Jardiance) ezetimibe 10 mg tablet 10 mg PO DAILY 10/26/24 10/26/24 tamsulosin 0.4 mg capsule 0.4 mg PO DAILY 10/26/24 10/26/24 Previous Rx's ?Medication ?Instructions ?Recorded mirabegron 50 mg tablet,extended 50 mg PO DAILY #90 tabs 10/09/24 release 24 hr (Myrbetriq) carvedilol 25 mg tablet 12.5 mg (1/2 x 25 mg) PO BID #30 10/28/24 tabs clonidine HCl 0.1 mg tablet 0.2 mg (2 x 0.1 mg) PO BID #120 10/28/24 tabs hydralazine 100 mg tablet 100 mg PO TID #90 tabs 10/28/24 torsemide 10 mg tablet 20 mg (2 x 10 mg) PO BID #120 tabs 10/28/24 ciprofloxacin HCl 500 mg tablet 500 mg PO DAILY #7 tabs 11/02/24 cephalexin 500 mg capsule 500 mg PO QID #13 caps 03/01/25 Allergies Allergy/AdvReac Type Severity Reaction Status Date / Time No Known Drug Allergies Allergy Verified 09/25/24 16:27 Review of Systems Review of Systems Narrative: See HPI. 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 Elevated PSA Bilateral lower extremity edema Nocturia associated with benign prostatic hyperplasia History of hypertension Hx of hyperlipidemia History of BPH History of dyspnea History of anemia Hx of fatigue History of deviated nasal septum Hx of sleep apnea Toe injury Myocardial infarct Surgical History S/P mitral valve clip implantation (~10/2024) S/P coronary artery stent placement (~2019) Hx of neck surgery Family History Other Elevated PSA Social History marital status: household members: none lives independently: Yes occupational status: previously employed Smoking Status: Never smoker alcohol intake: current substance use type: does not use caffeine: Yes Type(s) of exercise: walking frequency: 1-2 times per week duration: < 15 minutes/day Smoking Status: Never smoker alcohol intake frequency: holidays/special occasions only Exam Narrative Exam Narrative: Vitals: Afebrile, vitals within normal ranges. Gen: Well developed, well nourished, in no acute distress. Cards: Regular, no murmurs, rubs, or gallops. Pulm: Normal work of breathing. Clear to auscultation bilaterally. Abd: Nondistended, nontender to palpation. Ext: No peripheral edema in bilaterally lower extremity. Neuro: A&Ox4, cranial nerved grossly intact, moving all 4 extremities spontaneously. Psych: Appropriate. Initial Vital Signs Initial Vital Signs: Vital Signs Temperature 97.6 F 03/01/25 18:59 Pulse Rate 80 03/01/25 18:59 Respiratory Rate 18 03/01/25 18:59 Blood Pressure 105/54 L 03/01/25 18:59 Pulse Oximetry 97 03/01/25 18:59 Oxygen Delivery Method Room Air 03/01/25 18:59 Course Orders Ordered: Discontinued Medications Cephalexin HCl (Cephalexin 250 Mg Capsule) 500 mg PO NOW ONE Stop: 03/01/25 22:17 Last Admin: 03/01/25 22:47 Dose: 500 mg Documented By: TICO Vital Signs Vital signs: Vital Signs - 8 hr 03/01/25 18:59 03/01/25 21:20 03/01/25 21:30 Temperature 97.6 F Pulse Rate 80 80 Respiratory Rate 18 Blood Pressure 105/54 L 135/63 Pulse Oximetry 97 96 Oxygen Delivery Method Room Air 03/01/25 21:30 03/01/25 22:00 03/01/25 22:00 Temperature Pulse Rate 80 Respiratory Rate Blood Pressure 115/54 L 119/61 Pulse Oximetry 98 Oxygen Delivery Method 03/01/25 22:30 03/01/25 22:30 Temperature Pulse Rate 80 Respiratory Rate Blood Pressure 120/62 Pulse Oximetry 98 Oxygen Delivery Method MDM - Male Genitourinary Lab Data Labs: Lab Results 03/01/25 Range/Units 21:16 Urine Color Red Urine Appearance Turbid Urine pH 6.5 (4.5-8.0) Ur Specific [place] 1.025 (1.000-1.035) Urine Protein 3+ H (Negative) Urine Glucose (UA) Negative (Negative) g/dL Urine Ketones 1+ H (NEGATIVE) Urine Occult Blood 3+ H (Negative) Urine Nitrate Positive H (Negative) Urine Bilirubin Negative (NEGATIVE) Urine Urobilinogen 1.0 (0.2) E.U./dL Ur Leukocyte Esterase Negative (NEGATIVE) Urine RBC >100/hpf H (0-5/HPF) Urine WBC 1-5/hpf (0-5/HPF) Ur Squamous Epith Cells None seen (0-5/HPF) Urine Bacteria Few (2-10) H (None) Ur Culture Indicated? Specimen cultured Vol Urine Centrifuged 10ml (spun) MDM Narrative Medical decision making narrative: 85 year old on Eliquis for atrial fibrillation presents with three day history of hematuria. Differential diagnosis: UTI, neprholithiasis, iatrogenic, bladder cancer, BPH, prostatitis, other. Labs: Urinalysis positive for nitrites and hematuria. Imaging: None EKG: Not performed Consults: None ED course: Patient arrived to the ED with normal vitals. Physical exam benign. Urinalysis consistent with UTI. Post void residual was minimal. I discussed with patient given atrial fibrillation, risk of discontinuation of therapy is higher than benefits (i.e. stroke) and therefore he should continue anticoagulation. I also informed in possible development of retention secondary to clot formation. Patient stated that his PVR was residual and therefore he is not worried about retention. Again, I informed him of signs and symptoms of urinary retention which would require return to the ER. He was given first dose of antibiotics in the ER and sent home on 7 day course. Discharge Plan Departure Patient Disposition: Home Clinical Impression: Urinary tract infection Instructions: DI for Urinary Tract Infection (UTI) Prescriptions: New cephalexin 500 mg capsule 500 mg PO QID Qty: 13 0RF No Action mirabegron [Myrbetriq] 50 mg tablet extended release 24 hr 50 mg PO DAILY Qty: 90 0RF ferrous gluconate 324 mg (37.5 mg iron) tablet 324 mg PO BID isosorbide mononitrate 30 mg tablet extended release 24 hr 30 mg PO DAILY apixaban [Eliquis] 2.5 mg PO BID rosuvastatin 10 mg tablet 10 mg PO DAILY lisinopril 20 mg tablet 20 mg PO BID amlodipine 2.5 mg tablet 2.5 mg PO DAILY tamsulosin 0.4 mg capsule 0.4 mg PO DAILY ezetimibe 10 mg tablet 10 mg PO DAILY Jardiance 10 mg tablet 10 mg PO DAILY clonidine HCl 0.1 mg tablet 0.2 mg PO BID Qty: 120 0RF torsemide 10 mg tablet 20 mg PO BID Qty: 120 0RF hydralazine 100 mg tablet 100 mg PO TID Qty: 90 0RF carvedilol 25 mg tablet 12.5 mg PO BID Qty: 30 0RF Rx Instructions: must administer with a meal/food ciprofloxacin HCl 500 mg tablet 500 mg PO DAILY Qty: 7 0RF Referrals: Jesse Mcdaniels MD [Primary Care Provider, [facility]] Stand Alone Forms: Patient Portal/API
[2025-03-01 21:20] VITALS: BP 135/63
[2025-03-01 21:30] VITALS: BP 115/54; PULSE 80; O2SAT 96
[2025-03-01 21:42] LABS: Appearance Urine UA TURBID; Bilirubin Urine UA NEGATIVE (NEGATIVE); Color Urine UA RED; Glucose Urine UA NEGATIVE (Negative); Ketones Urine UA 1+ (NEGATIVE); Leukocyte Esterase Urine UA NEGATIVE (NEGATIVE); Nitrite Urine UA POSITIVE (Negative); Occult Blood Urine UA 3+ (Negative); Protein Urine UA 3+ (Negative); Specific Gravity Urine UA 1.025 (1.000-1.035); Urobilinogen Urine UA 1.0 E.U./dL (0.2); pH Urine UA 6.5 (4.5-8.0)
[2025-03-01 21:44] LABS: Culture Indicated Urine Specimen Cultured
[2025-03-01 22:00] VITALS: BP 119/61; PULSE 80; O2SAT 98
[2025-03-01 22:30] VITALS: BP 120/62; PULSE 80; O2SAT 98
== END 2025-03-01 23:36 | disposition home or self-care (01) ==
PROVIDERS: Emergency Provider Student in an Organized Health Care Education/Training Program; PCP Family Medicine
DX: N39.0 Urinary tract infection, site not specified (principal); Z86.73 Personal history of transient ischemic attack (TIA), and cerebral infarction without residual deficits
CPT/HCPCS: 51798; 81001; 87086; 99283